=== PATIENT | female | born 1975 | race Caucasian/White ===

== ENCOUNTER 2020-05-25 09:55 | Outpatient (CLI) | payer BC, SELFPAY ==
[2020-05-25 10:26] LABS: Hematocrit 46.2 % (37.0-47.0); Hemoglobin 15.6 g/dL (12.0-15.0); Mean Corpuscular HGB Conc 33.8 g/dl (32-36); Mean Corpuscular Hemoglobin 31.5 pg (26-34); Mean Corpuscular Volume 93.3 fl (80-100); Platelet Count Result 189 k/mm3 (150-375); Red Blood Count 4.95 M/mm3 (4.2-5.4); White Blood Count 7.9 K/mm3 (4.5-10.0)
[2020-05-25 10:30] LABS: Potassium 4.2 mmol/L (3.4-5.0)
[2020-05-25 10:35] LABS: Anion Gap 4 mmol/L (8-16); Blood Urea Nitrogen 13 mg/dL (7-17); Calcium 8.8 mg/dL (8.4-10.2); Carbon Dioxide 29 mmol/L (22-30); Chloride 106 mmol/L (98-107); Cholesterol 210 mg/dL (0-200); Estimated Glomerular Filt Rate > 60; Glucose 95 mg/dL (65-105); HDL Direct 51 mg/dL; Sodium 139 mmol/L (137-145); Triglycerides 174 mg/dL (<150)
[2020-05-25 10:42] LABS: LDL Cholesterol Direct 107 mg/dL
[2020-05-25 11:00] LABS: Thyroid Stimulating Hormone 0.701 uIU/mL (0.465-4.680)
== END 2020-05-25 09:56 | disposition home or self-care (01) ==
LOC: ANHLAB 09:56
PROVIDERS: PCP Family Medicine; Visit Provider Nurse Practitioner Family
DX: Z13.1 Encounter for screening for diabetes mellitus (principal); Z68.30 Body mass index [BMI] 30.0-30.9, adult; Z13.220 Encounter for screening for lipoid disorders; Z13.29 Encounter for screening for other suspected endocrine disorder
CPT/HCPCS: 36415; 80048; 80061; 84443; 85027

== ENCOUNTER 2020-05-25 13:55 | Outpatient (CLI) | payer BC, SELFPAY ==
--- NOTE | ~2020-05-25 | MM_ITS ---
EXAMINATION: MM screening isiah BI w megan HISTORY: Screening mammogram TECHNIQUE: Craniocaudal and mediolateral oblique 3-D tomosynthesis images were obtained and synthetic 2-D images were generated. CAD analysis was submitted and interpreted. COMPARISON: No prior mammogram is available for comparison at this institution. BREAST PARENCHYMAL COMPOSITION: There are scattered areas of fibroglandular density. FINDINGS: There is no evidence of suspicious mass, calcification, or architectural distortion to sugg est malignancy in either breast. There has been no suspicious interval change. IMPRESSION: 1. No mammographic evidence of malignancy. 2. Recommend routine screening mammography in one year. BI-RADS Category 1: Negative Reviewed, dictated and finalized at location A. O VIDEO REPAIRER
== END 2020-05-25 13:56 | disposition home or self-care (01) ==
LOC: ANHIMG 13:57
PROVIDERS: PCP Family Medicine; Visit Provider Nurse Practitioner Family
DX: Z12.31 Encounter for screening mammogram for malignant neoplasm of breast (principal)
CPT/HCPCS: 77063; 77067

== ENCOUNTER 2020-11-21 12:32 | Emergency (ER) | payer BC, SELFPAY ==
--- NOTE | ~2020-11-21 | XR_ITS ---
EXAMINATION: XR chest 2V DATE: 11/21/2020 14:11 INDICATION: Smoker presenting with cough and chest tightness TECHNIQUE: PA and lateral views of the chest were obtained. COMPARISON: Chest radiograph dated 01/04/2010 FINDINGS: The lungs remain clear with no focal airspace opacities, pulmonary edema, pleural effusion or pneumot horax. The cardiomediastinal silhouette is normal. Mild thoracic spondylosis with chronic mild anteri or wedging of a midthoracic vertebral body. IMPRESSION: 1. No acute cardiopulmonary disease. Reviewed, dictated and finalized at location A.
[2020-11-21 13:20] VITALS: BP 101/66; PULSE 68; RESP 20; TEMP 36.8; O2SAT 97
[2020-11-21 13:21] VITALS: BP 101/66; PULSE 68; RESP 20; TEMP 36.8; O2SAT 97
--- NOTE | 2020-11-21 13:49 | ED.URI ---
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 She states that she has a sore throat and generally does not feel well; she is unvaccinated. Related Data Allergies Allergy/AdvReac Type Severity Reaction Status Date / Time orphenadrine Allergy Unknown itchy, and Verified 11/21/20 13:21 puffy face sumatriptan Allergy Unknown Unknown Verified 11/21/20 13:21 Review of Systems Review of Systems: CONSTITUTIONAL: Denies fever, chills, sweats. Not feeling well EYES: Denies visual changes, redness, discharge. ENT: Denies rhinorrhea, has congestion, has sore throat, otalgia. CARDIOVASCULAR: Denies chest pain, palpitations, edema. RESPIRATORY: Denies dyspnea, wheezing, mild cough GASTROINTESTINAL: Denies abdominal pain, nausea, vomiting, diarrhea. GENITOURINARY: Denies dysuria, hematuria, abnormal discharge SKIN: Denies rash or itching. NEUROLOGIC: Denies numbness, or focal weakness. PSYCHIATRIC: Denies anxiety or depression. [facility] Past Medical History Medical History (Updated 11/21/20 @ 14:36 by Yasmine Maher CNP) Anxiety Bipolar disorder, unspecified BMI 30.0-30.9,adult BMI 31.0-31.9,adult Chronic low back pain Surgical History Surgical History H/O: hysterectomy Family History Family History Grandparent Hypertension Sibling Cerebrovascular accident Father CHF (congestive heart failure) Diabetes mellitus Mother Kidney failure Hypoparathyroidism Sibling COVID-19 Social History Social History Smoking packs per day: 1 Smoking cigarettes per day: 20.0 Years smoked: 24 Smoking pack-years: 24.00 Smoking status: Current every day smoker Tobacco type: cigarettes Second hand tobacco smoke exposure: Yes Alcohol intake: current Substance use: current Substance use type: marijuana 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 There is no relevant family history pertinent to the presenting complaint. Exam Narrative: GENERAL: This is a well-nourished, well-developed patient, in mild distress. HEAD: normocephalic, atraumatic. EYES:. Sclera clear/white. Vision is grossly intact. EARS: External ears normal, auditory canals clear on the left, erythematous on right and without drainage, TMs normal without perforation. Hearing grossly intact. NOSE: External nose normal without nasal discharge, nares with redness, no rhinorrhea. THROAT: Mucous membranes moist, posterior pharynx erythema NECK: Neck supple, mild tender CARDIOVASCULAR: Regular rate and rhythm without murmurs, gallops, or rubs. RESPIRATORY: Coarse to auscultation. Breath sounds equal bilaterally. No wheezes, rales, or rhonchi. GASTROINTESTINAL: Abdomen soft, non-tender, SKIN: warm, intact with no suspicious lesions or rash, good texture and turgor. NEURO: awake, alert, and oriented to person, place and time. There were no obvious focal neurologic abnormalities. Steady gait EXTREMITIES: Normal range of motion. BACK: Nontender without d
[2020-11-21] MEDS: methylPREDNISolone SOD SUCC 125 MG VIAL 60 MG IM (14:47)
[2020-11-23 03:46] LABS: SARS-CoV-2 RNA PCR Negative
== END 2020-11-21 14:55 | disposition home or self-care (01) ==
PROVIDERS: Emergency Provider Nurse Practitioner; PCP Family Medicine
DX: J01.10 Acute frontal sinusitis, unspecified (principal); Z20.822 Contact with and (suspected) exposure to COVID-19; F17.210 Nicotine dependence, cigarettes, uncomplicated; F41.9 Anxiety disorder, unspecified
CPT/HCPCS: 71046; 87081; 87426; 87880; 99213; C9803; G0463; J2930; U0003; U0005

== ENCOUNTER 2021-06-16 10:30 | Emergency (ER) | payer BC, SELFPAY ==
[2021-06-16] VITALS (12 sets, daily range): BP systolic 111–136; BP diastolic 66–84; PULSE 59–82; RESP 8–20; TEMP 36.9; O2SAT 97–100
--- NOTE | ~2021-06-16 | US_ITS ---
EXAMINATION: US abdomen limited DATE: 06/16/2021 11:18 INDICATION: Right upper quadrant and epigastric abdominal pain. TECHNIQUE: Multiple grayscale and Doppler ultrasound images of the abdomen were obtained. COMPARISON: 07/13/2015 FINDINGS: The pancreatic head and body are normal in appearance. The pancreatic tail is not visualized. Liver has normal echogenicity and contour, with a smooth surface. No liver lesion identified. No intrahepat ic biliary duct dilation suspected. Portal venous flow was seen in the hepatopetal, normal direction and has normal Doppler waveform. Visualized proximal to mid inferior vena cava is normal. 1.5 cm post erior shadowing gallstone in the fundus of the normal appearing gallbladder. Sonographic Marroquin sign was reported as negative by the spring bender. Normal caliber common bile duct measuring 3 mm in diamet er. IMPRESSION: 1. Cholelithiasis without biliary ductal dilation or findings of acute cholecystitis. Reviewed, dictated and finalized at location A. IMPRESSION: 1. Cholelithiasis without biliary ductal dilation or findings of acute cholecys titis.
[2021-06-16 10:50] LABS: Basophils Percent Auto 0.5 % (0.2-1.2); Eosinophils Absolute Auto 0.1 K/mm3 (0-0.3); Eosinophils Percent Auto 0.6 % (0-4.4); Hematocrit 46.2 % (37.0-47.0); Hemoglobin 15.8 g/dL (12.0-15.0); Immature Granulocyte Absolute 0.06 K/mm3 (0.00-0.031); Immature Granulocyte Percent A 0.8 % (0-0.5); Lymphocytes Absolute Auto 1.73 K/mm3 (0.9-3.2); Lymphocytes Percent Auto 22.3 % (18.3-44.2); Mean Corpuscular HGB Conc 34.2 g/dl (32-36); Mean Corpuscular Volume 93.7 fl (80-100); Mean Platelet Volume 10.7 fl (7.4-10.4); Monocytes Absolute Auto 0.6 K/mm3 (0.1-0.6); Monocytes Percent Auto 7.5 % (2.6-8.5); Neutrophils Absolute Auto 5.3 K/mm3 (1.3-6.7); Neutrophils Percent Auto 68.3 % (45.5-73.1); Platelet Count Result 162 k/mm3 (150-375); Red Blood Count 4.93 M/mm3 (4.2-5.4); Red Cell Distribution Width 11.9 % (11.5-14.5); White Blood Count 7.8 K/mm3 (4.5-10.0)
[2021-06-16 10:51] LABS: Appearance Urine Clear (Clear); Bilirubin Urine Negative (Negative); Blood Urine Negative (Negative); Color Urine Yellow (Yellow); Glucose Urine UA Negative (Negative); Ketones Urine Negative (Negative); Leukocyte Esterase Ur Negative LEU/UL (Negative); Nitrate Urine Negative (Negative); Protein Urine Negative (Negative); Urobilinogen Urine 0.2 mg/dL (<2.0)
[2021-06-16 10:53] LABS: RBC Urine 0-2 /hpf (0-2); Squamous Epithelial Cell Urine Few /hpf (Few); WBC Urine 0-3 /hpf
--- NOTE | 2021-06-16 10:53 | ED.ABDPAIN ---
HPI - Abdominal Pain General Chief Complaint: Abdominal Pain Stated Complaint: Abdominal pain with n/v/d Time Seen by Provider: 06/16/21 10:35 History of Present Illness HPI narrative: Patient is a 45 year old female with a history of peptic ulcer disease, landis's esophagus, fibromyalgia who presents for evaluation of epigastric/RUQ pain x 1 week, worse over the past few days. Patient states the pain is cramping in nature, constant, but worse after meals. +nausea and one episode of vomiting non-bloody emesis today. She developed some mid-line back pain yesterday that has been constant since, with no provoking or alleviating factors. She reports she was constipated for 4 days, relieved by suppository two days ago, and is now having watery stools. Stools are non-bloody, but she reports one yellow/pale stool last week, none since. No fevers, chills, dysuria, hematuria. Has history of PUD for which she gets EGDs q 3 years. Her last EGD was in 2017 which had no acute changes. She avoids alcohol, spicy foods and NSAIDs. Her pain has been unrelieved by Bentyl, Dicyclomine, Zofran, OTC Pepcid, Tramadol. Related Data Home Medications Medication Instructions Recorded Confirmed melatonin 10 mg PO HS PRN 11/21/20 06/08/21 Allergies Allergy/AdvReac Type Severity Reaction Status Date / Time orphenadrine Allergy Unknown itchy, and Verified 06/16/21 10:39 puffy face sumatriptan Allergy Unknown Unknown Verified 06/16/21 10:39 Review of Systems Review of Systems: All systems reviewed & are unremarkable except as noted in HPI and below PMFSH Past Medical History Medical History Anxiety Bipolar disorder, unspecified BMI 30.0-30.9,adult BMI 31.0-31.9,adult BMI 32.0-32.9,adult BMI greater than 30 Chronic low back pain Surgical History Surgical History H/O: hysterectomy Family History Family History Grandparent Hypertension Sibling Cerebrovascular accident Father CHF (congestive heart failure) Diabetes mellitus Mother Kidney failure Hypoparathyroidism Sibling COVID-19 Social History Social History Smoking packs per day: 1 Smoking cigarettes per day: 20.0 Years smoked: 24 Smoking pack-years: 24.00 Tobacco type: cigarettes Second hand tobacco smoke exposure: Yes Alcohol intake: current Drinks per week: 2 Substance use: former Substance use type: marijuana Additional occupation/education comments: [employer] Gender identity (if verbalized by the patient): Female Sexual Orientation (if Verbalized by the Patient): Straight or Heterosexual Spiritual care concerns: No Agree to blood products: Yes Exam Const: General: no acute distress Orientation/consciousness: patient oriented x3 HENMT: Head: normal to inspection Mouth: Yes moist mucous membranes Throat: posterior oropharynx normal Resp: Effort & Inspection: normal respiratory effort Auscultation: clear to auscultation bilaterally, no rales, no rhonchi and no wheezes Cardio: Rate: regular rate Rhythm: regular rhythm Heart sounds: no murmurs GI: GI Palp: Yes Soft to palpation, Yes Tenderness to palpation present (GI) (epigastric region), No Guarding due to palpation present (GI) and No Rebound tenderness present Auscultation: normal bowel sounds : General: Yes no CVA tenderness Back/Spine/Pelvis: Back: no CVA tenderness Skin: General skin exam: normal color Rashes: no rashes Neuro: General: patient oriented x3 Speech: normal speech Extrem: General: normal to inspection and no edema Psych: Mental Status: mental status grossly normal Affect: normal affect Course Course Emergency Course: Spoke with PCP who agrees with surgical follow up as outpatient. Vital Sig
[2021-06-16 10:55] LABS: Add Urine Microscopic? YES
[2021-06-16 11:06] LABS: Alanine Aminotransferase 25 U/L (4-35); Albumin Level 4.5 g/dL (3.5-5.1); Alkaline Phosphatase 51 U/L (38-126); Anion Gap 6 mmol/L (8-16); Aspartate Amino Transferase 30 U/L (14-36); Bilirubin,Total 0.5 mg/dL (0.2-1.3); Blood Urea Nitrogen 12 mg/dL (7-17); Calcium 8.9 mg/dL (8.4-10.2); Carbon Dioxide 24 mmol/L (22-30); Chloride 106 mmol/L (98-107); Estimated CRCL calculation 100 ml/min; Estimated Glomerular Filt Rate > 60; Glucose 108 mg/dL (65-110); Lipase 83 U/L (23-300); Potassium 3.9 mmol/L (3.4-5.0); Sodium 136 mmol/L (137-145)
[2021-06-16] MEDS: SODIUM CHLORIDE 0.9% IV 1,000 ML 999 ML IV CONT (11:14)
[2021-06-16] MEDS: FAMOTIDINE 20 MG/2 ML VIAL IV PUSH (11:15)
[2021-06-16] MEDS: METOCLOPRAMIDE HCL INJ 10 MG/2 ML VIAL IV PUSH (11:15)
[2021-06-16] MEDS: diphenhydrAMINE HCl INJ 50 MG/ML VIAL 25 MG IV PUSH (11:15)
--- NOTE | 2021-06-29 10:28 | PC.NURSE ---
LATE ENTRY This note is being entered to document information to the patient's record. The following information was omitted on [06/16/21], by [Joe Drake RN]. NS stop time 1213
--- NOTE | 2021-07-01 07:45 | PC.NURSE ---
LATE ENTRY This note is being entered to document information to the patient's record. The following information was omitted on [hillary agarwal], by [06/16/21]. NS start 1215 end 1300
== END 2021-06-16 12:56 | disposition home or self-care (01) ==
LOC: ANHED 10:56
PROVIDERS: Physician Assistant; Emergency Provider Emergency Medicine; PCP Family Medicine
DX: K80.20 Calculus of gallbladder without cholecystitis without obstruction (principal); K22.70 Barrett's esophagus without dysplasia; M79.7 Fibromyalgia; Z87.11 Personal history of peptic ulcer disease; F17.210 Nicotine dependence, cigarettes, uncomplicated
CPT/HCPCS: 36415; 76705; 80053; 81001; 81025; 83690; 85025; 96361; 96374; 96375; 99284; J1200; J2765; J7030

== ENCOUNTER 2021-06-22 10:06 | Emergency (ER) | payer BC, SELFPAY ==
--- NOTE | ~2021-06-22 | US_ITS ---
EXAMINATION: US abdomen limited EXAM DATE: 06/22/2021 13:23 INDICATION: RUQ abd pain TECHNIQUE: Multiple grayscale and Doppler images of the abdomen right upper quadrant were obtained (b y a technologist who performed the scan) and subsequently reviewed. Comparison is made to prior exami nation from 06/16/2021. FINDINGS: The pancreatic head and body are normal in appearance. The pancreatic tail is not visualized. The l iver has normal echogenicity and contour. There are no focal liver lesions identified. There is no evidence of intrahepatic biliary duct dilation. Portal venous flow was seen in the hepatopedal, nor mal direction and has normal Doppler waveform. No right-sided hydronephrosis. Common bile duct measures 4 mm, which is normal. The gallbladder wall is normal in thickness, with ex pected amount of distention. No sonographic evidence of pericholecystic fluid. There is a 2 cm gall stone. Technologist performing exam reports patient did not demonstrate sonographic Marroquin's sign. Please note that this sign is less reliable in patients who have received pain medication. IMPRESSION: 1. Cholelithiasis. Reviewed, dictated and finalized at location A. IMPRESSION: 1. Cholelithiasis.
[2021-06-22 10:11] VITALS: BP 98/67; PULSE 78; RESP 18; TEMP 36.5; O2SAT 99
[2021-06-22 10:56] LABS: Basophils Percent Auto 0.4 % (0.2-1.2); Eosinophils Absolute Auto 0.1 K/mm3 (0-0.3); Eosinophils Percent Auto 0.7 % (0-4.4); Hematocrit 44.1 % (37.0-47.0); Hemoglobin 15.1 g/dL (12.0-15.0); Immature Granulocyte Absolute 0.03 K/mm3 (0.00-0.031); Immature Granulocyte Percent A 0.4 % (0-0.5); Lymphocytes Absolute Auto 1.67 K/mm3 (0.9-3.2); Mean Corpuscular HGB Conc 34.2 g/dl (32-36); Mean Corpuscular Hemoglobin 31.9 pg (26-34); Mean Corpuscular Volume 93.2 fl (80-100); Mean Platelet Volume 10.4 fl (7.4-10.4); Monocytes Absolute Auto 0.6 K/mm3 (0.1-0.6); Monocytes Percent Auto 7.4 % (2.6-8.5); Neutrophils Absolute Auto 5.3 K/mm3 (1.3-6.7); Neutrophils Percent Auto 69.1 % (45.5-73.1); Platelet Count Result 158 k/mm3 (150-375); Red Blood Count 4.73 M/mm3 (4.2-5.4); Red Cell Distribution Width 11.9 % (11.5-14.5); White Blood Count 7.6 K/mm3 (4.5-10.0)
[2021-06-22 11:03] LABS: Add Urine Microscopic? YES; Appearance Urine Clear (Clear); Bilirubin Urine Negative (Negative); Blood Urine 1+ (Negative); Color Urine Yellow (Yellow); Glucose Urine UA Negative (Negative); Ketones Urine Negative (Negative); Leukocyte Esterase Ur Negative LEU/UL (Negative); Mucus Urine Rare /lpf; Nitrate Urine Negative (Negative); Protein Urine Negative (Negative); Squamous Epithelial Cell Urine Few /hpf (Few); Urobilinogen Urine Negative mg/dL (<2.0); WBC Urine 0-3 /hpf
[2021-06-22 11:06] LABS: Alanine Aminotransferase 14 U/L (4-35); Albumin Level 4.3 g/dL (3.5-5.1); Alkaline Phosphatase 50 U/L (38-126); Anion Gap 5 mmol/L (8-16); Aspartate Amino Transferase 21 U/L (14-36); Bilirubin,Total 0.7 mg/dL (0.2-1.3); Blood Urea Nitrogen 14 mg/dL (7-17); Calcium 8.6 mg/dL (8.4-10.2); Carbon Dioxide 24 mmol/L (22-30); Chloride 108 mmol/L (98-107); Estimated CRCL calculation 99 ml/min; Estimated Glomerular Filt Rate > 60; Glucose 94 mg/dL (65-110); Lipase 104 U/L (23-300); Sodium 137 mmol/L (137-145)
--- NOTE | 2021-06-22 12:02 | ED.ABDPAIN ---
HPI - Abdominal Pain General Chief Complaint: Abdominal Pain Stated Complaint: fever. gallstones Time Seen by Provider: 06/22/21 12:01 Source: patient Mode of arrival: ambulatory Limitations: no limitations History of Present Illness HPI narrative: The patient is a 45-year-old female with a history of peptic ulcer disease, symptomatic cholelithiasis/cholecystitis, recently visited this emergency department on June 16 where her diagnosis of cholecystitis was given, patient returns to the ER with subjective fevers up to 99 Fahrenheit, continued malaise, right upper quadrant pain. Patient reports chronic right upper quadrant pain with radiation to the right back. Denies any upper chest pain, shortness of breath. Denies cough. Patient states she has been unable to tolerate the pain, and she was scheduled for follow-up with Dr. Taylor on of this week, but called the office today and was encouraged to come in for reevaluation. Patient reports last oral intake was a cup of coffee this morning around 9 in the morning. She denies any significant constipation or diarrhea. Denies dysuria or hematuria. The ultrasound from June 16 I reviewed, there is evidence of cholelithiasis, no evidence of acute cholecystitis. Related Data Home Medications Medication Instructions Recorded Confirmed melatonin 10 mg PO HS PRN 11/21/20 06/08/21 Allergies Allergy/AdvReac Type Severity Reaction Status Date / Time orphenadrine Allergy Unknown itchy, and Verified 06/18/21 14:32 puffy face sumatriptan Allergy Unknown Unknown Verified 06/18/21 14:32 Review of Systems Review of Systems: CONSTITUTIONAL: Reports subjective fever and chills EYES: Denies visual changes, redness, or discharge. ENT: Denies rhinorrhea, congestion, sore throat, or otalgia. CARDIOVASCULAR: Denies chest pain, palpitations, or edema. RESPIRATORY: Denies cough or dyspnea. GASTROINTESTINAL: Reports right upper quadrant abdominal pain, nausea without vomiting, denies diarrhea or constipation GENITOURINARY: Denies dysuria or hematuria. SKIN: Denies rash or itching. MUSCULOSKELETAL: Denies back pain, joint pain, or myalgia. NEUROLOGIC: Denies headache, numbness, or weakness. [facility] Past Medical History Medical History Anxiety French esophagus Bipolar disorder, unspecified BMI 30.0-30.9,adult BMI 31.0-31.9,adult BMI 32.0-32.9,adult BMI greater than 30 Chronic low back pain Peptic ulcer disease Surgical History Surgical History H/O: hysterectomy Family History Family History Grandparent Pancreatic cancer Sibling Cerebrovascular accident Father CHF (congestive heart failure) Diabetes mellitus Hypertension Mother Kidney failure Hypoparathyroidism Hypertension Sibling COVID-19 Social History Social History Smoking packs per day: 1 Smoking cigarettes per day: 20.0 Years smoked: 26 Smoking pack-years: 26.00 Smoking status: Current every day smoker Tobacco type: cigarettes Second hand tobacco smoke exposure: Yes Alcohol intake: current Drinks per week: 2 Substance use: former Substance use type: marijuana Additional occupation/education comments: [employer] Gender identity (if verbalized by the patient): Female Sexual Orientation (if Verbalized by the Patient): Straight or Heterosexual Spiritual care concerns: No Agree to blood products: Yes Exam Narrative: GENERAL: Awake, alert, conversant HEAD: Normocephalic, atraumatic. EYES: PERRLA and EOMI. ENT: Nares clear, no rhinorrhea or epistaxis. Mucous membranes moist. NECK: Supple. CHEST: No respiratory distress, breathing even and non labored HEART: Regular rate, sinus rhythm ABDOMEN:Non distended, reports right upp
--- NOTE | 2021-06-22 12:37 | ECG_ITS ---
Measurements Intervals [place] Rate: 47 P: 65 KS: 132 QRS: 60 QRSD: 84 T: 33 QT: 435 QTc: 388 Interpretive Statements SINUS BRADYCARDIA SHORT [place] INTERVAL NO PREVIOUS ECG AVAILABLE FOR COMPARISON Electronically Signed On 06-22-2021 16:49:27 CDT by Aretha Padilla M.D.
[2021-06-22] MEDS: SODIUM CHLORIDE 0.9% IV 1,000 ML 999 ML IV CONT (12:52)
[2021-06-22] MEDS: ONDANSETRON INJ 4 MG/2 ML VIAL IV PUSH (12:52)
[2021-06-22] MEDS: MORPHINE SULFATE (*CRX) 4 MG/ML INJ IV PUSH (12:52)
--- NOTE | 2021-06-22 12:55 | PC.NURSE ---
pt to US via stretcher.
[2021-06-22 14:48] VITALS: BP 103/69; PULSE 54; RESP 18; O2SAT 99
== END 2021-06-22 15:13 | disposition home or self-care (01) ==
PROVIDERS: Emergency Medicine; Emergency Provider Emergency Medicine; PCP Family Medicine
DX: K80.20 Calculus of gallbladder without cholecystitis without obstruction (principal); K27.9 Peptic ulcer, site unspecified, unspecified as acute or chronic, without hemorrhage or perforation; G89.29 Other chronic pain; F17.210 Nicotine dependence, cigarettes, uncomplicated; Z90.710 Acquired absence of both cervix and uterus
CPT/HCPCS: 36415; 76705; 80053; 81001; 83690; 85025; 93005; 96361; 96374; 96375; 99284; J2270; J2405; J7030

== ENCOUNTER 2021-06-30 08:00 | Outpatient (CLI) | payer BC, SELFPAY ==
--- NOTE | ~2021-06-30 | XR_ITS ---
EXAMINATION: XR UGI w barium swallow DATE: 06/30/2021 08:50 INDICATION: Right upper quadrant pain and bloating TECHNIQUE: The patient drank thick barium, gas-producing crystals, and thin barium. Fluoroscopy of th e esophagus, stomach, and proximal small bowel were performed. Fluoroscopy exposure time was 2.7 martin dustin. The DAP for this procedure was 18.993 Gycm2. COMPARISON: None. FINDINGS: There is no mass or stricture of the esophagus. Esophageal motility is normal. There is no hiatal hernia. There was no gastroesophageal reflux with provocative maneuvers. The stomach and proxi mal small bowel show normal folding patterns. IMPRESSION: 1. Unremarkable upper GI. Reviewed, dictated and finalized at location A. IMPRESSION: 1. Unremarkable upper GI.
== END 2021-06-30 08:01 | disposition home or self-care (01) ==
LOC: ANHIMG 08:03
PROVIDERS: PCP Family Medicine; Visit Provider Surgery
DX: R10.11 Right upper quadrant pain (principal)
CPT/HCPCS: 74240

== ENCOUNTER 2021-07-05 07:41 | Outpatient (CLI) | payer BC, SELFPAY ==
--- NOTE | ~2021-07-05 | NM_ITS ---
EXAMINATION: NM hepatobiliary wo pharm DATE: 07/05/2021 10:14 INDICATION: Right upper quadrant abdominal pain. COMPARISON: None. TECHNIQUE: 5 mCi Tc-99m mebrofenin (Choletec) was administered intravenously. Scintigraphic images o f the abdomen were obtained for one hour. At the 1 hour time point, the patient drank 8 oz Ensure, an d imaging was continued for 60 minutes. Gallbladder ejection fraction was calculated by the technolog ist. FINDINGS: There is normal clearance of radiotracer from the blood pool. There is homogeneous tracer u ptake by the liver. Activity progresses to the bowel and gallbladder. The gallbladder ejection fract ion (GBEF) is 78%. Note that with this technique, normal GBEF >= 33%. IMPRESSION: 1. Normal hepatobiliary scan. Reviewed, dictated and finalized at location A.
== END 2021-07-05 07:42 | disposition home or self-care (01) ==
LOC: ANHIMG 07:45
PROVIDERS: PCP Family Medicine; Visit Provider Surgery
DX: R10.11 Right upper quadrant pain (principal)
CPT/HCPCS: 78226; A9537

== ENCOUNTER 2021-08-13 07:52 | Outpatient (CLI) | payer BC, SELFPAY ==
[2021-08-13 08:38] LABS: Alanine Aminotransferase 36 U/L (6-35); Albumin Level 4.2 g/dL (3.5-5.1); Alkaline Phosphatase 49 U/L (38-126); Amylase 63 U/L (30-110); Aspartate Amino Transferase 31 U/L (14-36); Bilirubin,Total 0.4 mg/dL (0.2-1.3); Lipase 85 U/L (23-300)
== END 2021-08-13 07:53 | disposition home or self-care (01) ==
PROVIDERS: PCP Family Medicine; Visit Provider Surgery
DX: Z01.812 Encounter for preprocedural laboratory examination (principal); K80.20 Calculus of gallbladder without cholecystitis without obstruction
CPT/HCPCS: 36415; 80076; 82150; 83690; 86850; 86900; 86901

== ENCOUNTER 2021-08-18 00:52 | Day surgery (SDC) | payer BC, SELFPAY ==
[2021-08-10 13:35] VITALS: BMI 31.9
--- NOTE | 2021-08-10 13:40 | SUR.PREOP ---
Report to the Outpatient Waiting Room, entrance under the green pavilion located off [facility], at time 0830_ on date _08/18/21 . OR Time: __1030 . - You and your visitor will be asked a series of questions to screen for COVID 19 for your protection. - Only one visitor is allowed at this time. - The patient visitor is requested to leave or wait in car when not with patient. - A mask is required within the hospital. Patients may have clear liquids (water, carbonated beverages, clear teas, apple juice) until 3 hours prior to surgery with a maximum of 20 ounces. - No food from midnight until time of surgery - Infants may have breast milk until 4 hours before surgery, infant formula 6 hours prior to surgery. - Children will be allowed to drink immediately following surgery. If applicable, please bring a bottle or sippy cup to assist with drinking. Juice, water, soda, and popsicles are readily available. For infants on formula, please bring formula the day of surgery. Pacifiers are allowed. Take the following medications with a SIP of water the morning of surgery: ___alprazalam Medications to discontinue per physician __vitamins supplements Date to take last dose___08/14/21 Please no make-up, nail vietnamese, hairspray, perfume, deodorant, or body powder the day of surgery. No jewelry (including any body piercings) or valuables the day of surgery, leave them at home. Please take a shower or bath the night before, or the morning of, surgery with an antibacterial soap. Wear comfortable, loose fitting clothing. Children are encouraged to wear pajamas. HIBICLENS SHOWER AM OF SURGERY - Jewelry must be removed prior to entering the operating room. Rings and piercings that are not removed may be cut off. - The hospital will not accept responsibility for valuables. - Please leave all valuables, including medications, at home the day of surgery. If you are going home after surgery, a licensed route cdl driver must drive you home. - NO public transportation without another adult. - We recommend that an adult stay with you for 24 hours following discharge. - We also recommend that you do not drive, make important decision, drink alcoholic beverages, or take any drugs that were not prescribed by your health care provider for at least 24 hours after your discharge time. For Pediatric surgeries, we recommend two adults accompany the child home (only one inside the building at this time). Follow any additional instructions given to you from your surgeon. If you or anyone in your household have experienced Covid symptoms in the past week, please notify your surgeon or the nurse liaison at the phone number below for possible testing. Telephone instructions given to _LINDA THIBODEAUX and asked if any additional questions and then verbalized understanding. Patient advised to call surgeon office or pre surgery nurse liaison [phone] if any additional questions.
--- NOTE | 2021-08-16 13:22 | PM.SD2 ---
Same Day Admit/Disch: HPI History of Present Illness Chief complaint: rt upper quad abdominal pain, cholelithiasis Narrative: Eda Akers is a 45 year old female Who started having postprandial right upper quadrant abdominal pain back in early May. She went to the emergency room a couple of times within a week in early June. She had an ultrasound which showed gallstones. Upper GI was negative. Hepatobiliary scan was normal. She also has a history of recalcitrant heartburn and regurgitation although she does take Prilosec and Pepcid Plans are for her to eventually have an EGD by Dr. Beauchamp. She has also felt to have chronic cholecystitis, cholelithiasis. She is taken to surgery now for laparoscopic cholecystectomy. [facility] Past Medical History Medical History (Updated 08/18/21 @ 12:17 by Hector Taylor MD) Anxiety French esophagus Bipolar disorder, unspecified BMI greater than 30 Chronic low back pain Peptic ulcer disease Surgical History Surgical History H/O: hysterectomy Family History Family History Grandparent Pancreatic cancer Sibling Cerebrovascular accident Father CHF (congestive heart failure) Diabetes mellitus Hypertension Mother Kidney failure Hypoparathyroidism Hypertension Sibling COVID-19 Social History Social History Smoking packs per day: 1 Smoking cigarettes per day: 20.0 Years smoked: 26 Smoking pack-years: 26.00 Smoking status: Current every day smoker Tobacco type: cigarettes Second hand tobacco smoke exposure: Yes Additional smoking assessment comments: 1 ppd x 26 years Alcohol intake: current Drinks per week: 2 Substance use: former Substance use type: marijuana Other substance usage details: eatable rarely Living arrangements: with family Additional occupation/education comments: [employer] Gender identity (if verbalized by the patient): Female Sexual Orientation (if Verbalized by the Patient): Straight or Heterosexual Spiritual care concerns: No Agree to blood products: Yes Same Day Admit/Disch: Med Pre-admit Medications Home Medications Medication Instructions Recorded Confirmed Type duloxetine 60 mg capsule,delayed 60 mg PO DAILY #90 caps 11/11/20 08/18/21 Rx release (Cymbalta) melatonin 10 mg tablet 10 mg PO HS PRN Insomnia 11/21/20 08/18/21 History ondansetron HCl 4 mg tablet 4 mg PO Q6H PRN nausea and 06/14/21 08/18/21 Rx vomiting #30 tabs famotidine 20 mg tablet (Pepcid) 20 mg PO BID 07/12/21 08/18/21 History omeprazole 40 mg capsule,delayed 40 mg PO DAILY #30 caps 07/12/21 08/18/21 Rx release Lactobacillus acidophilus 10 10,000 mmu cells PO DAILY 08/10/21 08/18/21 History billion cell capsule (Probiotic) cholecalciferol (vitamin D3) 25 25 mcg PO DAILY 08/10/21 08/18/21 History mcg (1,000 unit) capsule (Vitamin D3) magnesium 250 mg tablet 250 mg PO DAILY 08/10/21 08/18/21 History tizanidine 2 mg tablet 2 mg PO DAILY PRN muscle spasticity 08/10/21 08/18/21 History zinc 10 mg tablet 10 mg PO DAILY 08/10/21 08/18/21 History alprazolam 0.5 mg tablet 0.5 mg PO BID PRN panic attack(s) 08/13/21 Rx #20 tabs hydrocodone 5 mg-acetaminophen 325 1 - 2 tablet PO Q6H PRN pain #10 08/18/21 Rx mg tablet tabs ketorolac 10 mg tablet 10 mg PO Q6H 4 days #16 tabs 08/18/21 Rx Exam Const: General: comfortable, no acute distress, alert and awake HENMT: Head: normocephalic and atraumatic Mouth: Yes Normal oral and palatal mucosa present Eyes: Conjunctivae: conjunctivae normal Pupils: Equal, round and reactive pupils present EOM: EOMs intact bilaterally Neck: Neck: normal visual inspection, no lymphadenopathy and nontender Resp: Effort & Inspection: normal respiratory effort Auscultation: clear to a
[2021-08-18] VITALS (10 sets, daily range): BP systolic 92–133; BP diastolic 55–95; PULSE 49–93; RESP 12–20; TEMP 36.4–36.8; O2SAT 98–100; BMI 32.5
[2021-08-18] MEDS: ACETAMINOPHEN 500 MG TABLET 1000 MG PO (09:43)
[2021-08-18] MEDS: LACTATED RINGERS 1,000 ML 30 ML IV CONT ×2 (09:43→12:12)
[2021-08-18] MEDS: KETOROLAC 15 MG/ML VIAL (*BKC) IV PUSH (09:44)
--- NOTE | 2021-08-18 10:35 | WPDANESEPPF ---
Anes - Initial Pre Proc Eval Procedure: Operation Date: 08/18/21 10:30 Proposed Procedures p Laparoscopic Cholecystectomy - Hector Taylor MD Date/Time: 08/18/21 10:35 Surgeon: Hector Taylor MD Pre Op Diagnosis: rt upper quad abdominal pain, cholelithiasis Patient Data Age: 45 Gender: F Height: 1.6 m Weight: 83.3 kg Last Vital Signs Temp 98.2 F 08/18/21 09:39 Pulse 69 08/18/21 09:39 Resp 20 08/18/21 09:39 BP 92/63 L 08/18/21 09:39 Pulse Ox 100 08/18/21 09:39 O2 Del Method Room Air 08/18/21 09:39 Allergies Allergy/AdvReac Type Severity Reaction Status Date / Time sumatriptan Allergy Severe Anaphylactic Verified 08/18/21 09:13 Shock Home Medications Medication Instructions Recorded Confirmed Type duloxetine 60 mg capsule,delayed 60 mg PO DAILY #90 caps 11/11/20 08/18/21 Rx release (Cymbalta) melatonin 10 mg tablet 10 mg PO HS PRN Insomnia 11/21/20 08/18/21 History ondansetron HCl 4 mg tablet 4 mg PO Q6H PRN nausea and 06/14/21 08/18/21 Rx vomiting #30 tabs famotidine 20 mg tablet (Pepcid) 20 mg PO BID 07/12/21 08/18/21 History omeprazole 40 mg capsule,delayed 40 mg PO DAILY #30 caps 07/12/21 08/18/21 Rx release Lactobacillus acidophilus 10 10,000 mmu cells PO DAILY 08/10/21 08/18/21 History billion cell capsule (Probiotic) cholecalciferol (vitamin D3) 25 25 mcg PO DAILY 08/10/21 08/18/21 History mcg (1,000 unit) capsule (Vitamin D3) magnesium 250 mg tablet 250 mg PO DAILY 08/10/21 08/18/21 History tizanidine 2 mg tablet 2 mg PO DAILY PRN muscle spasticity 08/10/21 08/18/21 History zinc 10 mg tablet 10 mg PO DAILY 08/10/21 08/18/21 History alprazolam 0.5 mg tablet 0.5 mg PO BID PRN panic attack(s) 08/13/21 Rx #20 tabs Patient hx anesthesia problems: none Family hx anesthesia problems: none Results Review: All pre-operative results and documents have been reviewed as part of the pre-operative evaluation. [facility] Past Medical History Medical History Anxiety French esophagus Bipolar disorder, unspecified BMI 30.0-30.9,adult BMI 31.0-31.9,adult BMI 32.0-32.9,adult BMI greater than 30 Chronic low back pain Peptic ulcer disease Surgical History Surgical History H/O: hysterectomy Family History Family History Grandparent Pancreatic cancer Sibling Cerebrovascular accident Father CHF (congestive heart failure) Diabetes mellitus Hypertension Mother Kidney failure Hypoparathyroidism Hypertension Sibling COVID-19 Social History Social History Smoking packs per day: 1 Smoking cigarettes per day: 20.0 Years smoked: 26 Smoking pack-years: 26.00 Smoking status: Current every day smoker Tobacco type: cigarettes Second hand tobacco smoke exposure: Yes Additional smoking assessment comments: 1 ppd x 26 years Alcohol intake: current Drinks per week: 2 Substance use: former Substance use type: marijuana Other substance usage details: eatable rarely Living arrangements: with family Additional occupation/education comments: [employer] Gender identity (if verbalized by the patient): Female Sexual Orientation (if Verbalized by the Patient): Straight or Heterosexual Spiritual care concerns: No Agree to blood products: Yes Anes - Eval Final PreProcedure Day of Procedure 08/18/21 10:35 Patient weight: obese Heart: regular rate and rhythm Lungs: clear to auscultation Airway: Mallampati scale class III Neurological: alert and oriented Last oral intake: >/= 8 hours ASA classification: III Emergent: no Anesthetic plan: proceed Anesthesia type and monitoring: general ETT and standard monitoring Results Review: All pre-operative results and
--- NOTE | 2021-08-18 10:46 | WPDHPUPDATE1 ---
History and Physical Update Update Date/Time: 08/18/21 10:46 History and Physical has been reviewed, including an updated exam of the patient. There are NO changes in the patient's condition. Risks, benefits, and alternatives have been discussed and questions answered. Patient agrees to proceed with procedure.
[2021-08-18] MEDS: ceFAZolin 2 GM/D5W 50 ML 2 GM/50 ML BAG IVPB (11:08)
[2021-08-18] MEDS: LIDO 1%/EPINEPHRINE/PF 1:200,000 30 ML VIAL XX (11:53)
--- NOTE | 2021-08-18 11:59 | W.PM.PROC2 ---
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 She has numerous gallstones on ultrasound. She is taken to surgery now for laparoscopic cholecystectomy. Findings Chronic inflammation was noted. There were numerous stones in the gallbladder. No biliary ductal dilatation. No liver abnormalities. Description of Procedure The patient was taken to surgery and induced into general anesthesia. The abdomen is prepped and draped. Trocars were placed in the usual fashion using 1% lidocaine with epinephrine and applied Medical optical trocars. A 5 mm camera was used. The gallbladder was decompressed with a laparoscopic aspirator. After being decompressed, it was obvious there were numerous stones in the gallbladder. Cholecystotomy was closed with a Vicryl endoloop. The gallbladder was then freed from omental adhesions and retracted anterosuperiorly. Dissection was carried out in the cholecystohepatic triangle. The cystic duct and cystic artery were dissected out very clearly. The gallbladder was dissected off the liver over its lower half. Critical view was achieved. We then securely clipped and divided the cystic duct and cystic artery. The gallbladder was dissected free of its remaining attachments to the liver. The gallbladder was placed in an Endo-Catch bag when it was free. It was extricated through the 10 11 epigastric trocar site without difficulty. We replaced the 10 11 epigastric trocar and reviewed the right upper quadrant. All looked good with no evidence of bleeding or bile leakage. Some irrigation and suctioning were carried out to ensure all was satisfactory. We then evacuated CO2 and removed the trocar sleeves. Skin wounds were closed with subcuticular 4-0 Monocryl skin suture. The wounds were dressed with Exofin surgical adhesive. Patient was awakened and taken to recovery in good condition. Sponge needle counts were correct x2. Estimated Blood Loss -5 Drains No Packing No Pathology Yes (Gallbladder) Complications No immediate complications Condition Stable Disposition PACU [facility] Billing Surgery - Charge Forward: Surgery Billing (Laparoscopic cholecystectomy)
[2021-08-18] MEDS: ONDANSETRON INJ 4 MG/2 ML VIAL IV PUSH (12:23)
[2021-08-18] MEDS: diphenhydrAMINE HCl INJ 50 MG/ML VIAL 12.5 MG IV PUSH ×2 (12:51→13:03)
[2021-08-18] MEDS: oxyCODONE HCL (*CRX) 5 MG TAB IR PO (13:46)
--- NOTE | 2021-08-18 14:12 | SUR.PHASEII ---
1410 - ambulated to bathroom with assist. gait steady.
== END 2021-08-18 14:49 | disposition home or self-care (01) ==
PROVIDERS: PCP Family Medicine; Visit Provider Surgery
PROC: 0FT44ZZ Resection of Gallbladder, Percutaneous Endoscopic Approach (ICD-10-PCS; CPT 47562; principal; 2021-08-18 10:30)
DX: K80.10 Calculus of gallbladder with chronic cholecystitis without obstruction (principal); F41.9 Anxiety disorder, unspecified; F31.9 Bipolar disorder, unspecified; F17.210 Nicotine dependence, cigarettes, uncomplicated; E66.9 Obesity, unspecified; Z68.32 Body mass index [BMI] 32.0-32.9, adult
CPT/HCPCS: 47562; 88304; A9270; C1713; J0690; J1100; J1200; J1885; J2250; J2405; J2704; J3010; J7120

== ENCOUNTER → 2022-01-31 08:52 | Outpatient (CLI) | payer BC, SELFPAY ==
--- NOTE | ~2022-01-31 | XR_ITS ---
XR foot RT min 3V DATE: 01/31/2022 09:05 INDICATION: Arch and heel pain for 6 to 12 months TECHNIQUE: 4 views COMPARISON: None FINDINGS: There is mild posterior calcaneal enthesopathy. No fracture, dislocation, periosteal reaction or bone destruction. Joint spaces are preserved. No ero sive changes. IMPRESSION: Mild posterior calcaneal enthesopathy Reviewed, dictated and finalized at location A. SROOM TEACHER
--- NOTE | ~2022-01-31 | XR_ITS ---
XR ankle RT min 3V DATE: 01/31/2022 09:05 INDICATION: Ankle pain for 6 to 12 months TECHNIQUE: 4 views COMPARISON: None FINDINGS: Mild posterior calcaneal enthesopathy. No fracture or dislocation of the ankle or disruption of the ankle mortise. No periosteal reaction or bone destruction. IMPRESSION: Mild posterior calcaneal enthesopathy Reviewed, dictated and finalized at location A. R ANALYST
== END ==
PROVIDERS: PCP Family Medicine; Visit Provider Family Medicine
DX: M77.31 Calcaneal spur, right foot (principal)
CPT/HCPCS: 73610; 73630

== ENCOUNTER → 2022-06-16 16:51 | Outpatient (CLI) | payer BC, SELFPAY ==
--- NOTE | ~2022-06-16 | XR_ITS ---
EXAMINATION: XR lumbar spine 6V w bending DATE: 06/16/2022 17:21 INDICATION: Lumbar radiculopathy TECHNIQUE: Anteroposterior, lateral in neutral, flexion and extension, and bilateral oblique views of the lumbar spine, and cone-down lateral view of the lumbosacral junction were obtained. COMPARISON: None. FINDINGS: Bone alignment is normal. There is no hypermobility with flexion or extension. The vertebra l body heights are normal. There is mild loss of intervertebral disc space height at L5-S1. There is multilevel mild facet joint osteoarthritis. There is no fracture. Surgical clips in the right upper q uadrant are likely from prior cholecystectomy. IMPRESSION: 1. Mild lumbar spondylosis without acute findings. Reviewed, dictated and finalized at location F.
--- NOTE | ~2022-06-16 | XR_ITS ---
EXAMINATION: XR hip RT min 2V DATE: 06/16/2022 17:21 INDICATION: Right hip pain TECHNIQUE: Two views of right hip were obtained. COMPARISON: None. FINDINGS: Bone alignment is normal. There is no fracture. There is mild osteoarthritis of the hip. IMPRESSION: 1. No acute osseous abnormality. Reviewed, dictated and finalized at location F.
== END ==
PROVIDERS: PCP Family Medicine; Visit Provider Family Medicine
DX: M25.551 Pain in right hip (principal); M47.26 Other spondylosis with radiculopathy, lumbar region
CPT/HCPCS: 72114; 73502

== ENCOUNTER → 2022-09-30 14:52 | Outpatient (CLI) | payer BC, SELFPAY ==
--- NOTE | ~2022-09-30 | MR_ITS ---
EXAMINATION: MR brain/brain stem wo/w con DATE: 09/30/2022 15:35 INDICATION: Dizziness. TECHNIQUE: Magnetic resonance imaging (MRI) of the brain and brainstem was performed without and with 19 mL MultiHance intravenous contrast. COMPARISON: None. FINDINGS: There is no intracranial hemorrhage, acute infarction, or abnormal intracranial mass lesion . There are 2 foci of nonspecific increased T2-weighted signal intensity in the cerebral white matter , which is within normal limits for the patient's age. The ventricles are normal in size. The paranas al sinuses are clear. The orbits are normal. The mastoid air cells are normal. IMPRESSION: 1. Normal brain. Reviewed, dictated and finalized at location E. IMPRESSION: 1. Normal brain.
== END ==
PROVIDERS: PCP Family Medicine
DX: R42 Dizziness and giddiness (principal)
CPT/HCPCS: 70553; A9577

== ENCOUNTER 2022-11-04 10:02 | Outpatient (CLI) | payer BC, SELFPAY ==
--- NOTE | ~2022-11-04 | SLEEP.INT_ITS ---
Polysomnography Report Patient Name: LINDA AKERS Study Date: 11/04/2022 Referring Physician: Henrry Phillips MD Indications for Polysomnography The patient is a 47 year-old Female who is 5' 2 and weighs 215.0 lbs. Her BMI equals 39.6. The patie nt's neck circumference is 16 inches. The [place] Sleepiness Scale score was 17. A full night polysomnogram wa s performed to evaluate the patient for fatigue and excessive daytime sleepiness. Sleep History Linda Akers is a 47-year-old female who is always tired, does not feel refreshed on waking. There is a family history of sleep apnea, her mother has sleep apnea. The patient wakes up during the night and always has exc essive daytime sleepiness. She tried Ambien years ago without improvement. She rarely awakens from sleep feeling s hort of breath. She occasionally awakens at night with heartburn, belching or coughing. She frequently snores and fr equently has loud enough that others complain about it. She frequently has difficulty sleeping with a cold. She does not wake up gasping for breath at night. She rarely has breathing problems at night observed by others. She frequently sweats excessively at night. She does not notice her heart pounding or beating irregularly at night. She occasionally falls asleep during the day, occasionally falls asleep involuntarily; she rarely falls asleep while driving. She does not claros ve loss of muscle tone with strong emotion. She rarely has daytime difficulties due to excessive sleepiness. She rarely fe els paralyzed on waking or falling asleep. She rarely has vivid dreamlike scenes upon awakening or falling asleep. S he is not afraid to go to sleep. She rarely has nightmares. She occasionally remembers her dreams. She frequently has racing thoughts. She rarely feels sad or depressed. She occasionally has anxiety. She always has muscular tension. She frequently notices parts of her body jerking. She occasionally kicks at night. She occasionally has crawling a nd aching feelings in her legs. She frequently has leg pain at night. She never has morning jaw pain. She occasionally g rinds her teeth during sleep. She constantly is bothered by pain during the day and is always awakened by pain at ni ght. She constantly wakes up feeling stiff in the morning with sore achy muscles and pain in the neck and spine. She has headaches, fatigue, sexual problems, memory problems and she takes antacids regularly. Normal bedtime is 8:00 p.m. usually falling asleep within 20 minutes, typically waking 4-5 times duri ng the night for unclear reasons. She tries to return to sleep but sometimes this can take a while. Her normal wake up time is 5:00 a.m.. On weekends, bedtime is between 8:00 p.m. and 9:00 p.m. She wakes at 7:00 a.m.. She estimates getti ng between 6 and 9 hours of sleep at night. She takes naps in the afternoon on weekends. A short nap is not refr eshing. She is usually drowsy for 3 hours after waking. Habits: She is a former tobacco smoker. Caffeine 1 cup of coffee per day. No alcohol or recreation al substances. Medical History Depression, fibromyalgia, chronic pain Medications Cymbalta 60 mg HS Tizanidine 4 mg HS Meloxicam 7.5 mg at night Vitamin D3 2000 units daily Magnesium 400 mg daily Melatonin 10 mg HS Gabapentin 200 mg HS Polysomnogram Data A full night polysomnogram using the [employer] multi-channel system recorded the standard phys iologic parameters including EEG, EOG, submentalis EMG, anterior tibialis EMG, EKG, body position, nasal and oral airflow using nasal pressure sensor and thermistor. Respiratory parameters of chest and abdominal movements were recorded with Respiratory Inductance Plethysmography belts. Oxygen saturation was recorded by pulse oximetry. Video monitoring was also performed. Sleep stages, periodic limb movements,
== END 2022-11-05 08:11 | disposition home or self-care (01) ==
LOC: ANHCSM 10:03
PROVIDERS: PCP Family Medicine
DX: G47.33 Obstructive sleep apnea (adult) (pediatric) (principal); G47.30 Sleep apnea, unspecified
CPT/HCPCS: 95810

== ENCOUNTER → 2022-11-05 07:23 | Outpatient (CLI) | payer BC, SELFPAY ==
--- NOTE | ~2022-11-05 | US_ITS ---
EXAMINATION: US soft tissue abdomen INDICATION: Palpable masses of the right flank TECHNIQUE: Limited ultrasound is performed in the area of clinical concern. COMPARISON: None available FINDINGS: There are two circumscribed isoechoic masses of the right flank in the area of clinical con cern. One measures 2.9 x 1.4 x 2.9 cm and the other 1.0 x 0.8 x 1.0 cm. No suspicious cystic or solid mass is identified. IMPRESSION: 1. Right flank masses with sonographic appearance consistent with lipomas. Reviewed, dictated and finalized at location F.
== END ==
PROVIDERS: PCP Family Medicine; Visit Provider Nurse Practitioner Family
DX: R22.2 Localized swelling, mass and lump, trunk (principal)
CPT/HCPCS: 76705

== ENCOUNTER 2023-05-19 08:43 | Emergency (ER) | payer BC, SELFPAY ==
--- NOTE | ~2023-05-19 | CT_ITS ---
EXAMINATION: CT abdomen pelvis w con DATE: 05/19/2023 09:38 INDICATION: Right-sided abdominal pain TECHNIQUE: Computed tomography (CT) of the abdomen and pelvis was performed with 100 mL Omnipaque-350 intravenous contrast. Automated exposure control and iterative reconstruction technique were employe d. The dose-length product was 1266.37 mGy-cm. COMPARISON: 04/19/2012 FINDINGS: Lung bases are clear. Heart size is normal. No pericardial or pleural effusion. Diffuse hepatic steat osis. Mild dilation of the common bile duct to 9 mm which is within normal limits post cholecystectom y with surgical clips the gallbladder fossa. No evident obstructing stones or masses or intrahepatic biliary ductal dilation. Spleen, pancreas, bilateral adrenal glands and kidneys are normal. There are few scattered colonic diverticula without adjacent inflammatory stranding to suggest diverticulitis. Small bowel and appendix are normal. The uterus is not identified and has likely been surgically res ected. 4.2 cm right adnexal cyst, increased in size from 2.9 cm at the time of the prior study. Bladd er is normal. No free intraperitoneal gas or fluid. No pathologically enlarged abdominal or pelvic ly mphadenopathy. Mild lumbar and mild to moderate thoracic spondylosis with chronic mild anterior wedgi ng at T9. IMPRESSION: 1. Mild dilation of the common bile duct to 9 mm which is within normal limits post cholecystectomy w ith no intrahepatic biliary ductal dilation. Could consider correlation with liver function tests. 2. Diffuse hepatic steatosis. 3. 4.2 cm simple appearing right adnexal cyst increased from 2.9 cm in 2012. Reviewed, dictated and finalized at location B. ER IMPRESSION: 1. Mild dilation of the common bile duct to 9 mm which is within normal limits post cholecystectomy with no intrahepatic biliary ductal dilation. Could consid er correlation with liver function tests. 2. Diffuse hepatic steatosis. 3. 4.2 cm simple appearing right adnexal cyst increased from 2.9 cm in 2012.
[2023-05-19 08:54] VITALS: BP 137/88; PULSE 69; RESP 16; TEMP 36.8; O2SAT 98
[2023-05-19 09:07] LABS: Basophils Absolute Auto 0.1 K/mm3 (0.0-0.1); Basophils Percent Auto 0.8 % (0.2-1.2); Eosinophils Absolute Auto 0.1 K/mm3 (0-0.3); Eosinophils Percent Auto 1.3 % (0-4.4); Hematocrit 43.6 % (37.0-47.0); Hemoglobin 14.5 g/dL (12.0-15.0); Immature Granulocyte Absolute 0.07 K/mm3 (0.00-0.031); Immature Granulocyte Percent A 1.1 % (0-0.5); Lymphocytes Absolute Auto 1.48 K/mm3 (0.9-3.2); Lymphocytes Percent Auto 23.5 % (18.3-44.2); Mean Corpuscular HGB Conc 33.3 g/dl (32-36); Mean Corpuscular Hemoglobin 31.9 pg (26-34); Mean Corpuscular Volume 95.8 fl (80-100); Mean Platelet Volume 10.2 fl (7.4-10.4); Monocytes Absolute Auto 0.6 K/mm3 (0.1-0.6); Neutrophils Percent Auto 63.3 % (45.5-73.1); Platelet Count Result 193 k/mm3 (150-375); Red Blood Count 4.55 M/mm3 (4.2-5.4); Red Cell Distribution Width 12.7 % (11.5-14.5); White Blood Count 6.3 K/mm3 (4.5-10.0)
[2023-05-19 09:17] LABS: Alanine Aminotransferase 86 U/L (6-35); Albumin Level 4.5 g/dL (3.5-5.1); Alkaline Phosphatase 64 U/L (38-126); Anion Gap 5 mmol/L (8-16); Aspartate Amino Transferase 49 U/L (14-36); Bilirubin,Total 0.5 mg/dL (0.2-1.3); Blood Urea Nitrogen 19 mg/dL (7-17); Calcium 9.5 mg/dL (8.4-10.2); Carbon Dioxide 26 mmol/L (22-30); Chloride 108 mmol/L (98-107); Estimated CRCL calculation 109 ml/min; Estimated Glomerular Filt Rate > 60; Glucose 99 mg/dL (65-110); Lipase 136 U/L (23-300); Potassium 4.3 mmol/L (3.4-5.0); Sodium 139 mmol/L (137-145)
--- NOTE | 2023-05-19 09:20 | ED.ABDPAIN ---
HPI - Abdominal Pain General Chief Complaint: Abdominal Pain Stated Complaint: abdomen pain Time Seen by Provider: 05/19/23 08:52 History of Present Illness HPI narrative: 47-year-old female presented to the emergency department for evaluation of right upper and right lower quadrant abdominal pain that started yesterday. Patient does report associated nausea vomiting and diarrhea. Patient states he does have a prior history of cholecystectomy and does have history of Typhlitis. Related Data Home Medications Medication Instructions Recorded Confirmed melatonin 10 mg tablet 10 mg PO HS PRN Insomnia 11/21/20 04/26/23 wwagklhmzi-ualldybkwjrmd-whjabski 1 cap PO Q6H PRN 12/15/21 04/26/23 50 mg-300 mg-40 mg capsule (Fioricet) meloxicam 7.5 mg tablet 7.5 mg PO DAILY 10/04/22 04/26/23 folic acid 1 mg tablet 1 mg PO DAILY 03/03/23 04/26/23 gabapentin 600 mg tablet 600 mg PO DAILY 03/03/23 04/26/23 methotrexate sodium 5 mg tablet 25 mg PO WEEKLY 03/03/23 04/26/23 Allergies Allergy/AdvReac Type Severity Reaction Status Date / Time sumatriptan Allergy Severe Anaphylactic Verified 04/26/23 12:28 Shock Review of Systems Review of Systems: All systems reviewed & are unremarkable except as noted in HPI and below PMFSH Past Medical History Medical History Achilles tendon pain Anxiety French esophagus Bipolar disorder, unspecified BMI greater than 30 Body mass index (BMI) of 40.1 to 44.9 in adult Chronic low back pain Lumbar radiculopathy Peptic ulcer disease Right hip pain Seronegative arthritis Skin lesion of right arm Surgical History Surgical History H/O: hysterectomy Hx laparoscopic cholecystectomy 08/18/21 Family History Family History Grandparent Pancreatic cancer Sibling Cerebrovascular accident Father CHF (congestive heart failure) Diabetes mellitus Hypertension Mother Kidney failure Hypoparathyroidism Hypertension Sibling COVID-19 Hypertension Diabetes mellitus Social History Social History Smoking packs per day: 1 Smoking cigarettes per day: 20.0 Years smoked: 26 Smoking pack-years: 26.00 Smoking status: Current every day smoker Tobacco type: e-cigarettes/vaping Second hand tobacco smoke exposure: Yes Additional smoking assessment comments: 1 ppd x 26 years Alcohol intake: current Drinks per week: 2 Substance use: former Substance use type: marijuana Other substance usage details: edibles rarely Lack of Transportation: No Lack of Food: Never True Current Housing: I Have Housing Concerned About Future Housing: No Difficulty Paying Gas/Electric Bills: No Difficulty Paying for Meds: No Currently Unemployed: No Education: High School Diploma/GED Difficulty w/ Childcare or Family Care: No Living arrangements: with family Occupation/Education: occupation 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 HEAD: normocephalic, atraumatic. EYES: PERRLA/EOMI, conjunctivae clear. NOSE: Normal no drainage NECK: Supple. No adenopathy, no masses. RESPIRATORY: Airway patent, respirations nonlabored. Clear to auscultation bilaterally, no rales, rhonchi, wheezing. CARDIOVASCULAR: Regular rate and rhythm without murmurs rubs or gallops. ABDOMINAL: Right upper and right lower quadrant tenderness to palpation MUSCULOSKELETAL: Moves all extremities. Strength/ROM intact, No edema, No calf tenderness. NEURO: Alert. Cranial ner
[2023-05-19 09:21] LABS: Appearance Urine Clear (Clear); Bilirubin Urine Negative (Negative); Blood Urine Negative (Negative); Color Urine Yellow (Yellow); Glucose Urine UA Negative (Negative); Ketones Urine Negative (Negative); Leukocyte Esterase Ur Negative LEU/UL (Negative); Nitrate Urine Negative (Negative); Protein Urine Negative (Negative); Specific Grav Ur 1.021 (1.001-1.035); Urobilinogen Urine 0.2 mg/dL (<2.0); pH Urine 5.5 (5.0-9.0)
[2023-05-19] MEDS: ONDANSETRON INJ 4 MG/2 ML VIAL IV PUSH (09:25)
[2023-05-19] MEDS: HYDROmorphone HCL INJ (*CRX) 1 MG/ML SYR 0.5 MG IV PUSH (09:25)
[2023-05-19] MEDS: SODIUM CHLORIDE 0.9% IV 1,000 ML 999 ML IV CONT (09:27)
[2023-05-19 09:40] LABS: Add Urine Microscopic? NO
[2023-05-19 10:01] VITALS: BP 140/71; PULSE 72; RESP 20; TEMP 36.8; O2SAT 96
[2023-05-19 11:10] VITALS: BP 122/65; PULSE 59; RESP 18; TEMP 36.4; O2SAT 98
[2023-05-19 11:55] VITALS: BP 122/65; PULSE 78; RESP 18; O2SAT 99
[2023-05-19 12:23] VITALS: BP 120/60; PULSE 80; RESP 18; TEMP 36.6; O2SAT 99
== END 2023-05-19 12:25 | disposition home or self-care (01) ==
PROVIDERS: Emergency Provider Emergency Medicine; PCP Family Medicine
DX: R11.2 Nausea with vomiting, unspecified (principal); R19.7 Diarrhea, unspecified; R10.11 Right upper quadrant pain; F17.210 Nicotine dependence, cigarettes, uncomplicated
CPT/HCPCS: 36415; 74177; 80053; 81003; 83690; 85025; 96361; 96374; 96375; 99284; J1170; J2405; J7030; Q9967

== ENCOUNTER 2024-04-11 10:42 | Emergency (ER) | payer BC, SELFPAY ==
--- NOTE | ~2024-04-11 | XR_ITS ---
EXAMINATION: XR chest 2V DATE: 04/11/2024 12:45 INDICATION: Cough. Fever. TECHNIQUE: Frontal and lateral views of the chest were obtained. COMPARISON: Chest 2 views 11/21/2020 FINDINGS: There is no pneumonia, pleural effusion, or pneumothorax. The heart size is normal. There a re surgical clips in the abdomen. There is mild chronic anterior wedging of a midthoracic vertebral b nando. IMPRESSION: 1. No acute cardiopulmonary disease. Reviewed, dictated and finalized at location B. WARE QUALITY ANALYST
--- NOTE | ~2024-04-11 | CT_ITS ---
CT of the Abdomen and Pelvis: Indication: Abdominal pain Technique: 2.5 mm axial scans were obtained through the abdomen and pelvis following intravenous adm inistration of 100 cc of Omnipaque 350. Dose reduction technique was used on this scan by utilizing a utomated exposure control and iterative reconstruction technique. The dose-length product (DLP) was 1 240.60 mGy-cm. COMPARISON: 05/19/2023 Findings: Scans through the lung bases are unremarkable. There is diffuse hepatic steatosis. Cholecystectomy clips are present. The spleen, pancreas, adrenals and kidneys are within normal limits. No evidence of aortic aneurysm. No lymphadenopathy. No bowel obstruction or bowel wall thickening. There is no evidence to suggest acute appendicitis. Images through the pelvis were performed. 3.9 cm right ovarian cyst present. Status post hysterectomy . Urinary bladder unremarkable. No ascites. Impression: 3.9 cm right ovarian cyst, unchanged. Diffuse hepatic steatosis. Reviewed, dictated and finalized at [facility]. S AND SKINS COLORER Impression: 3.9 cm right ovarian cyst, unchanged. Diffuse hepatic steatosis.
[2024-04-11 10:52] VITALS: BP 133/87; PULSE 95; RESP 15; TEMP 36.7; O2SAT 99
--- NOTE | 2024-04-11 12:07 | ECG_ITS ---
Test Date: 2024-04-11 14:02:35 Measurements Intervals [place] Rate: 66 P: 51 TN: 148 QRS: 45 QRSD: 89 T: 17 QT: 417 QTc: 440 Interpretive Statements SINUS RHYTHM LOW QRS VOLTAGE IN PRECORDIAL LEADS [QRS DEFLECTION < 1.0 mV IN CHEST LEADS] NONSPECIFIC T-WAVE ABNORMALITY No previous ECG available for comparison Electronically Signed On 04-11-2024 14:22:17 DIGITAL LEARNING PLATFORMS MANAGER by Janette Lundberg
--- NOTE | 2024-04-11 12:08 | ED_ITS ---
HPI - Abdominal Pain General Chief Complaint: Abdominal Pain Stated Complaint: dx pancreatitis, sent by PCP Time Seen by Provider: 04/11/24 12:08 Focused HPI: Patient is a 48-year-old female who presents to the ER with abdominal pain and diarrhea. She reports she went to a different ER on Monday and they told her she had pancreatitis but did not admit her. Patient reports right upper quadrant pain has increased since she has tried to advance her diet. She also reports she has just returned from a cruise. Since she has been back she has had symptoms of cough, R flank pain, decreased urination. Patient reports she believes she is dehydrated. GENERAL: Well-appearing, well-nourished, and in no acute distress. HEAD: Normocephalic, atraumatic. CHEST: Clear to auscultation. ?No respiratory distress. HEART: Regular rate and rhythm.? NEURO: ?Alert and oriented x3. ABDOMEN: Tenderness with palpation especially in right upper quadrant. Hyperactive BS Patient screened in triage and initial orders placed.? ?Additional care and disposition to be based upon?diagnostic testing and treatment. Related Data Home Medications ?Medication ?Instructions ?Recorded ?Confirmed ?Last Taken ?Type hydroxychloroquine 200 mg tablet 200 mg PO BID 05/30/23 03/29/24 Unknown History Allergies Allergy/AdvReac Type Severity Reaction Status Date / Time sumatriptan Allergy Severe Anaphylactic Verified 04/11/24 12:58 Shock bupropion (From Wellbutrin AdvReac Severe Agitated Verified 04/11/24 12:58 SR) PMFSH Past Medical History Medical History Seronegative arthritis Right hip pain Lumbar radiculopathy Skin lesion of right arm Achilles tendon pain History of peptic ulcer Peptic ulcer disease French esophagus Anxiety Screening for thyroid disorder Screening for malignant neoplasm of breast Screening for diabetes mellitus Bipolar disorder, unspecified Chronic low back pain Surgical History Surgical History Hx of cholecystectomy Hx laparoscopic cholecystectomy 08/18/21 H/O: hysterectomy Family History Family History Grandparent Pancreatic cancer Sibling Cerebrovascular accident Father CHF (congestive heart failure) Diabetes mellitus Hypertension Mother Kidney failure Hypoparathyroidism Hypertension Sibling COVID-19 Hypertension Diabetes mellitus Social History Social History Smoking packs per day: 1 Smoking cigarettes per day: 20.0 Years smoked: 26 Smoking pack-years: 26.00 Smoking status: Former smoker Tobacco type: e-cigarettes/vaping Second hand tobacco smoke exposure: Yes Smoking end date: 11/20/23 Additional smoking assessment comments: 1 ppd x 26 years Alcohol intake: current Drinks per week: 2 Substance use: former Substance use type: marijuana Other substance usage details: edibles rarely Lack of Transportation: No Lack of Food: Never True Current Housing: I Have Housing Concerned About Future Housing: No Difficulty Paying Gas/Electric Bills: No Difficulty Paying for Meds: No Currently Unemployed: No Education: High School Diploma/GED Difficulty w/ Childcare or Family Care: No Living arrangements: with family Occupation/Education: occupation 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[employer] Gender identity (if verbalized by the patient): Female Sexual Orientation (if Verbalized by the Patient): Straight or Heterosexual Spiritual care concerns: No Agree to blood products: Yes Course Vital Signs Vital signs: Vital Signs Temperature 36.7 C 04/11/24 10:52 Pulse Rate 95 04/11/24 10:52 Respiratory Rate 15 04/11/24 10:52 Blood Pressure 133/87 04/11/24 10:52 Pulse Oximetry 99 04/11/24 10:52 Oxygen Delivery Room Air 04/11/24 10:52 Temperature 36.7 C 04/11/24 10:52 Pulse Rate 67 04/11/24 15:00 Respiratory Rate 15 04/11/24 15:00 Blood Pressure 122/79 04/11/24 15:00 Pulse Oximetry 98 04/11/24 15:00 Oxygen Delivery Room Air 04/11/24 10:52 MDM - Abdominal Pain Lab Data 04/11/24 12:30 04/11/24 12:30 Labs: Lab Results 04/11/24 04/11/24 Range/Units 12:30 13:03 WBC 3.1 L (4.5-10.0) K/mm3 RBC 5.08 (4.2-5.4) M/mm3 Hgb 15.5 H (12.0-15.0) g/dL Hct 44.9 (37.0-47.0) % MCV 88.4 (80-100) fl MCH 30.5 (26-34) pg MCHC 34.5 (32-36) g/dl RDW 11.9 (11.5-14.5) % Plt Count 166 (150-375) k/mm3 MPV 9.5 (7.4-10.4) fl Immature Gran % (Auto) 0.3 (0-0.5) % Neut % (Auto) 44.9 L (45.5-73.1) % Lymph % (Auto) 39.6 (18.3-44.2) % [place] % (Auto) 14.3 H (2.6-8.5) % Eos % (Auto) 0.3 (0-4.4) % Baso % (Auto) 0.6 (0.2-1.2) % Lymph # (Auto) 1.22 (0.9-3.2) K/mm3 [place] # (Auto) 0.4 (0.1-0.6) K/mm3 Eos # (Auto) 0.0 (0-0.3) K/mm3 Baso # (Auto) 0.0 (0.0-0.1) K/mm3 Abs Immat Gran (auto) 0.01 (0.00-0.031) K/mm3 Absolute Neuts (auto) 1.4 (1.3-6.7) K/mm3 Absolute Nucleated RBC 0.000 (0.0-0.012) K/mm3 Nucleated RBC % 0.0 (0.0-0.2) % PT 13.3 (11.1-14.7) Seconds INR 1.0 APTT 27.8 (22.3-36.8) Seconds Sodium 139 (137-145) mmol/L Potassium 3.4 (3.4-5.0) mmol/L Chloride 102 (98-107) mmol/L Carbon Dioxide 25 (22-30) mmol/L Anion Gap 12 (4-12) mmol/L BUN 18 H (7-17) mg/dL Creatinine 0.60 L (0.7-1.0) mg/dL Estim Creat Clear Calc 102 ml/min Estimated GFR > 60 (59 - ) Glucose 101 (65-110) mg/dL Calcium 9.1 (8.4-10.2) mg/dL Total Bilirubin 0.6 (0.2-1.3) mg/dL AST 51 H (14-36) U/L ALT 82 H (6-35) U/L Alkaline Phosphatase 55 (38-126) U/L Troponin I < 0.012 (0.000-0.034) ng/mL Total Protein 7.0 (6.3-8.2) g/dL Albumin 4.4 (3.5-5.1) g/dL Lipase 111 (23-300) U/L Urine Color Dark yellow (Yellow) Urine Appearance Cloudy H (Clear) Urine pH 5.5 (5.0-9.0) Ur Specific [place] 1.030 (1.001-1.035) Urine Protein 2+ H (Negative) mg/dL Urine Glucose (UA) Negative (Negative) mg/dL Urine Ketones Trace H (Negative) mg/dL Ur Blood (Man) Negative (Negative) Urine Nitrate Negative (Negative) Urine Bilirubin 1+ H (Negative) Urine Urobilinogen 1.0 (<2.0) mg/dL Add Ur Microanalysis Reviewed Leukocyte Esterase Rfl Negative (Negative) ZULEMA/UL Urine RBC 3-5 H (0-2) /hpf Urine WBC 0-5 (0-3) /hpf Ur Squamous Epith Cells Moderate (Few) /hpf Urine Bacteria 1+ H /hpf Urine Casts 3-5 Influenza A (RT-PCR) Positive A (Negative) Influenza B (RT-PCR) Negative (Negative) RSV (RT-PCR) Negative (Negative) SARS-CoV-2 RNA (RT-PCR) Negative (Negative) Imaging Data Radiologist's impression: ITS Impressions Chest X-Ray 04/11/24 12:53 IMPRESSION: 1. No acute cardiopulmonary disease. Abdomen/Pelvis CT 04/11/24 13:23 Impression: 3.9 cm right ovarian cyst, unchanged. Diffuse hepatic steatosis. Discharge Plan Discharge Clinical Impression: Viral gastroenteritis, Influenza A Patient Disposition: Home, Self-Care Condition: Stable Instructions: Influenza (DC), Gastroenteritis (ED) Additional Instructions: RETURN IF SYMPTOMS ARE WORSENING , CALL YOUR FAMILY PHYSICIAN FOR APPOINTMENT, TAKE TYLENOL NEEDED FOR ACHES AND PAIN, CONTINUE HOME MEDICATIONS. Patient Language: Thai Prescriptions: New ondansetron 4 mg tablet,disintegrating 4 mg PO Q4H Qty: 10 0RF Rx Instructions: 1st dose 1-2 hr before radiation No Action omeprazole 40 mg capsule,delayed release(DR/EC) 40 mg PO DAILY 30 Days Qty: 30 5RF hydroxychloroquine 200 mg tablet 200 mg PO BID alprazolam 0.5 mg tablet 0.5 mg PO BID PRN (Reason: panic attack(s)) Qty: 20 0RF ondansetron 4 mg tablet,disintegrating 4 mg PO Q8H PRN (Reason: nausea and vomiting) Qty: 20 0RF tizanidine 4 mg tablet 4 mg PO Q8H PRN (Reason: muscle spasticity) Qty: 90 1RF duloxetine [Cymbalta] 30 mg capsule,delayed release(DR/EC) 30 mg PO DAILY Qty: 90 2RF duloxetine [Cymbalta] 60 mg capsule,delayed release(DR/EC) 60 mg PO DAILY Qty: 90 1RF topiramate [Topamax] 25 mg tablet 25 mg PO BID Qty: 60 1RF phentermine 15 mg capsule 15 mg PO DAILY Qty: 30 1RF Rx Instructions: must administer 2 hours after breakfast amitriptyline 25 mg tablet 25 mg PO QHS Qty: 30 1RF Follow-up/Referrals: Koko Eli MD [Primary Care Provider] -
--- NOTE | 2024-04-11 12:20 | ED.ABDPAIN ---
HPI - Abdominal Pain General Chief Complaint: Abdominal Pain Stated Complaint: dx pancreatitis, sent by PCP Time Seen by Provider: 04/11/24 12:08 Source: patient and family Mode of arrival: ambulatory Limitations: no limitations History of Present Illness HPI narrative: 48 YEARS OLD WHITE FEMALE CAME TO THE ED BY A PRIVATE CAR WITH HER COMPLAINING OF ABDOMINAL PAIN WITH NAUSEA FOR THE LAST FEW DAYS WAS SEEN AT [facility] 5 DAYS AGO, PATIENT IS TELLING ME THAT HER LIPASE WAS ELEVATED WITH NEGATIVE CT SCAN AND WAS TOLD THAT SHE HAVE PANCREATITIS ON EACH TO GO HOME ON AT ORAL FLUID. PATIENT BEEN TAKING ORAL FLUIDS OVER THE LAST 5 DAYS BUT COMPLAINING OF NAUSEA, VOMITING INCREASED ABDOMINAL PAIN AND A LOT OF DIARRHEA ANY TIME SHE HAVE P.O. INTAKE FOLLOWED IMMEDIATELY BY DIARRHEA. HISTORY OF DEPRESSION ARE A MIGRAINE HEADACHE, USES MARIJUANA DAILY, COMPLETE HYSTERECTOMY CHOLECYSTECTOMY PAIN DIVERTICULITIS. PATIENT DENIES ANY FEVER OR CHILLS. Related Data Home Medications ?Medication ?Instructions ?Recorded ?Confirmed ?Last Taken ?Type hydroxychloroquine 200 mg tablet 200 mg PO BID 05/30/23 03/29/24 Unknown History Allergies Allergy/AdvReac Type Severity Reaction Status Date / Time sumatriptan Allergy Severe Anaphylactic Verified 04/11/24 12:58 Shock bupropion (From Wellbutrin AdvReac Severe Agitated Verified 04/11/24 12:58 SR) Review of Systems Review of Systems: All systems reviewed & are unremarkable except as noted in HPI and below PMFSH Past Medical History Medical History Seronegative arthritis Right hip pain Lumbar radiculopathy Skin lesion of right arm Achilles tendon pain History of peptic ulcer Peptic ulcer disease French esophagus Anxiety Screening for thyroid disorder Screening for malignant neoplasm of breast Screening for diabetes mellitus Bipolar disorder, unspecified Chronic low back pain Surgical History Surgical History Hx of cholecystectomy Hx laparoscopic cholecystectomy 08/18/21 H/O: hysterectomy Family History Family History Grandparent Pancreatic cancer Sibling Cerebrovascular accident Father CHF (congestive heart failure) Diabetes mellitus Hypertension Mother Kidney failure Hypoparathyroidism Hypertension Sibling COVID-19 Hypertension Diabetes mellitus Social History Social History Smoking packs per day: 1 Smoking cigarettes per day: 20.0 Years smoked: 26 Smoking pack-years: 26.00 Smoking status: Former smoker Tobacco type: e-cigarettes/vaping Second hand tobacco smoke exposure: Yes Smoking end date: 11/20/23 Additional smoking assessment comments: 1 ppd x 26 years Alcohol intake: current Drinks per week: 2 Substance use: former Substance use type: marijuana Other substance usage details: edibles rarely Lack of Transportation: No Lack of Food: Never True Current Housing: I Have Housing Concerned About Future Housing: No Difficulty Paying Gas/Electric Bills: No Difficulty Paying for Meds: No Currently Unemployed: No Education: High School Diploma/GED Difficulty w/ Childcare or Family Care: No Living arrangements: with family Occupation/Education: occupation 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[employer] Gender identity (if verbalized by the patient): Female Sexual Orientation (if Verbalized by the Patient): Straight or Heterosexual Spiritual care concerns: No Agree to blood products: Yes Exam Narrative: GENERAL APPEARANCE: WELL-DEVELOPED, WELL-NOURISHED SKIN: NORMAL COLOR HEAD: NORMOCEPHALIC, NONTRAUMATIC EYES: CLEAR CONJUNCTIVA ENT: OROPHARYNX NORMAL, EARS NORMAL, NOSE NORMAL NECK: SUPPLE, NONTENDER CHEST AND RESPIRATORY: AIRWAY PATENT, NO RESPIRATORY DISTRESS, NO ACCESSORY MUSCLE USE HEART: REGULAR RATE/RHYTHM ABDOMEN: SOFT, DIFFUSE TENDERNESS UPPER ABDOMEN, NO GUARDING OR REBOUND, QUITE BOWEL SOUNDS VASCULAR: NORMAL PERIPHERAL PULSES, NORMAL CAPILLARY REFILL. 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 TESTED, NO GROSS MOTOR DEFICIT Course Vital Signs Vital signs: Vital Signs Temperature 36.7 C 04/11/24 10:52 Pulse Rate 95 04/11/24 10:52 Respiratory Rate 15 04/11/24 10:52 Blood Pressure 133/87 04/11/24 10:52 Pulse Oximetry 99 04/11/24 10:52 Oxygen Delivery Room Air 04/11/24 10:52 Temperature 36.7 C 04/11/24 10:52 Pulse Rate 81 04/11/24 12:56 Respiratory Rate 16 04/11/24 12:56 Blood Pressure 127/91 H 04/11/24 12:56 Pulse Oximetry 99 04/11/24 12:56 Oxygen Delivery Room Air 04/11/24 10:52 MDM - Abdominal Pain MDM Narrative Medical decision making narrative: PATIENT CAME TO THE ED BY PRIVATE CAR WITH ABDOMINAL PAIN VITAL SIGNS ARE STABLE PHYSICAL EXAMINATION SHOWING TENDERNESS UPPER ABDOMEN DIFFERENTIAL DIAGNOSIS PANCREATITIS, CHOLECYSTITIS, DIVERTICULITIS, DEHYDRATION, ELECTROLYTE IMBALANCE, URINARY TRACT INFECTION BLOOD WORKUP TODAY INCLUDES CBC, CMP, LIPASE, SHOWED WBC 3.1, HEMOGLOBIN 15.5, BUN 18, CREATININE 0.6, AST 51 ALT 82, LIPASE 111, S URINALYSIS SHOWED CT ABDOMEN AND PELVIS WITH IV CONTRAST SHOWED 3.9 cm right ovarian cyst, unchanged. Diffuse hepatic steatosis CHEST X-RAY SHOWED NO ACUTE ABNORMALITY PATIENT TESTED POSITIVE FOR FLU TODAY PATIENT'S SYMPTOM STARTED MORE THAN 5 DAYS AGO, PATIENT IS NOT A CANDIDATE FOR TAMIFLU AT THIS TIME. Differential Diagnosis Differential diagnosis: Likely other ( ABOVE) Medical Records Attestation: I reviewed the patient's medical records. Lab Data Attestation: I reviewed the patient's lab results. 04/11/24 12:30 04/11/24 12:30 Labs: Lab Results 04/11/24 04/11/24 Range/Units 12:30 13:03 WBC 3.1 L (4.5-10.0) K/mm3 RBC 5.08 (4.2-5.4) M/mm3 Hgb 15.5 H (12.0-15.0) g/dL Hct 44.9 (37.0-47.0) % MCV 88.4 (80-100) fl MCH 30.5 (26-34) pg MCHC 34.5 (32-36) g/dl RDW 11.9 (11.5-14.5) % Plt Count 166 (150-375) k/mm3 MPV 9.5 (7.4-10.4) fl Immature Gran % (Auto) 0.3 (0-0.5) % Neut % (Auto) 44.9 L (45.5-73.1) % Lymph % (Auto) 39.6 (18.3-44.2) % [place] % (Auto) 14.3 H (2.6-8.5) % Eos % (Auto) 0.3 (0-4.4) % Baso % (Auto) 0.6 (0.2-1.2) % Lymph # (Auto) 1.22 (0.9-3.2) K/mm3 [place] # (Auto) 0.4 (0.1-0.6) K/mm3 Eos # (Auto) 0.0 (0-0.3) K/mm3 Baso # (Auto) 0.0 (0.0-0.1) K/mm3 Abs Immat Gran (auto) 0.01 (0.00-0.031) K/mm3 Absolute Neuts (auto) 1.4 (1.3-6.7) K/mm3 Absolute Nucleated RBC 0.000 (0.0-0.012) K/mm3 Nucleated RBC % 0.0 (0.0-0.2) % PT 13.3 (11.1-14.7) Seconds INR 1.0 APTT 27.8 (22.3-36.8) Seconds Sodium 139 (137-145) mmol/L Potassium 3.4 (3.4-5.0) mmol/L Chloride 102 (98-107) mmol/L Carbon Dioxide 25 (22-30) mmol/L Anion Gap 12 (4-12) mmol/L BUN 18 H (7-17) mg/dL Creatinine 0.60 L (0.7-1.0) mg/dL Estim Creat Clear Calc 102 ml/min Estimated GFR > 60 (59 - ) Glucose 101 (65-110) mg/dL Calcium 9.1 (8.4-10.2) mg/dL Total Bilirubin 0.6 (0.2-1.3) mg/dL AST 51 H (14-36) U/L ALT 82 H (6-35) U/L Alkaline Phosphatase 55 (38-126) U/L Troponin I < 0.012 (0.000-0.034) ng/mL Total Protein 7.0 (6.3-8.2) g/dL Albumin 4.4 (3.5-5.1) g/dL Lipase 111 (23-300) U/L Urine Color Dark yellow (Yellow) Urine Appearance Cloudy H (Clear) Urine pH 5.5 (5.0-9.0) Ur Specific [place] 1.030 (1.001-1.035) Urine Protein 2+ H (Negative) mg/dL Urine Glucose (UA) Negative (Negative) mg/dL Urine Ketones Trace H (Negative) mg/dL Ur Blood (Man) Negative (Negative) Urine Nitrate Negative (Negative) Urine Bilirubin 1+ H (Negative) Urine Urobilinogen 1.0 (<2.0) mg/dL Add Ur Microanalysis Reviewed Leukocyte Esterase Rfl Negative (Negative) ZULEMA/UL Urine RBC 3-5 H (0-2) /hpf Urine WBC 0-5 (0-3) /hpf Ur Squamous Epith Cells Moderate (Few) /hpf Urine Bacteria 1+ H /hpf Urine Casts 3-5 Influenza A (RT-PCR) Positive A (Negative) Influenza B (RT-PCR) Negative (Negative) RSV (RT-PCR) Negative (Negative) SARS-CoV-2 RNA (RT-PCR) Negative (Negative) Imaging Data Radiologist's impression: ITS Impressions Chest X-Ray 04/11/24 12:53 IMPRESSION: 1. No acute cardiopulmonary disease. Abdomen/Pelvis CT 04/11/24 13:23 Impression: 3.9 cm right ovarian cyst, unchanged. Diffuse hepatic steatosis. Critical Care Time Critical Care Time Critical Care Time: No Discharge Plan Discharge Clinical Impression: Viral gastroenteritis, Influenza A Patient Disposition: Home, Self-Care Condition: Stable Instructions: Influenza (DC), Gastroenteritis (ED) Additional Instructions: RETURN IF SYMPTOMS ARE WORSENING , CALL YOUR FAMILY PHYSICIAN FOR APPOINTMENT, TAKE TYLENOL NEEDED FOR ACHES AND PAIN, CONTINUE HOME MEDICATIONS. Patient Language: Pakistani Prescriptions: New ondansetron 4 mg tablet,disintegrating 4 mg PO Q4H Qty: 10 0RF Rx Instructions: 1st dose 1-2 hr before radiation No Action omeprazole 40 mg capsule,delayed release(DR/EC) 40 mg PO DAILY 30 Days Qty: 30 5RF hydroxychloroquine 200 mg tablet 200 mg PO BID alprazolam 0.5 mg tablet 0.5 mg PO BID PRN (Reason: panic attack(s)) Qty: 20 0RF ondansetron 4 mg tablet,disintegrating 4 mg PO Q8H PRN (Reason: nausea and vomiting) Qty: 20 0RF tizanidine 4 mg tablet 4 mg PO Q8H PRN (Reason: muscle spasticity) Qty: 90 1RF duloxetine [Cymbalta] 30 mg capsule,delayed release(DR/EC) 30 mg PO DAILY Qty: 90 2RF duloxetine [Cymbalta] 60 mg capsule,delayed release(DR/EC) 60 mg PO DAILY Qty: 90 1RF topiramate [Topamax] 25 mg tablet 25 mg PO BID Qty: 60 1RF phentermine 15 mg capsule 15 mg PO DAILY Qty: 30 1RF Rx Instructions: must administer 2 hours after breakfast amitriptyline 25 mg tablet 25 mg PO QHS Qty: 30 1RF Follow-up/Referrals: Koko Eli MD [Primary Care Provider] -
[2024-04-11 12:37] LABS: Basophils Percent Auto 0.6 % (0.2-1.2); Eosinophils Percent Auto 0.3 % (0-4.4); Hematocrit 44.9 % (37.0-47.0); Hemoglobin 15.5 g/dL (12.0-15.0); Immature Granulocyte Absolute 0.01 K/mm3 (0.00-0.031); Immature Granulocyte Percent A 0.3 % (0-0.5); Lymphocytes Absolute Auto 1.22 K/mm3 (0.9-3.2); Lymphocytes Percent Auto 39.6 % (18.3-44.2); Mean Corpuscular HGB Conc 34.5 g/dl (32-36); Mean Corpuscular Hemoglobin 30.5 pg (26-34); Mean Corpuscular Volume 88.4 fl (80-100); Mean Platelet Volume 9.5 fl (7.4-10.4); Monocytes Absolute Auto 0.4 K/mm3 (0.1-0.6); Monocytes Percent Auto 14.3 % (2.6-8.5); Neutrophils Absolute Auto 1.4 K/mm3 (1.3-6.7); Neutrophils Percent Auto 44.9 % (45.5-73.1); Platelet Count Result 166 k/mm3 (150-375); Red Blood Count 5.08 M/mm3 (4.2-5.4); Red Cell Distribution Width 11.9 % (11.5-14.5); White Blood Count 3.1 K/mm3 (4.5-10.0)
[2024-04-11 12:47] LABS: Alanine Aminotransferase 82 U/L (6-35); Albumin Level 4.4 g/dL (3.5-5.1); Alkaline Phosphatase 55 U/L (38-126); Anion Gap 12 mmol/L (4-12); Aspartate Amino Transferase 51 U/L (14-36); Bilirubin,Total 0.6 mg/dL (0.2-1.3); Blood Urea Nitrogen 18 mg/dL (7-17); Calcium 9.1 mg/dL (8.4-10.2); Carbon Dioxide 25 mmol/L (22-30); Chloride 102 mmol/L (98-107); Estimated CRCL calculation 102 ml/min; Estimated Glomerular Filt Rate > 60; Glucose 101 mg/dL (65-110); Lipase 111 U/L (23-300); Potassium 3.4 mmol/L (3.4-5.0); Sodium 139 mmol/L (137-145)
[2024-04-11 12:49] LABS: Prothrombin Time 13.3 Seconds (11.1-14.7)
[2024-04-11 12:50] LABS: Partial Thromboplastin Time 27.8 Seconds (22.3-36.8)
[2024-04-11 12:56] VITALS: BP 127/91; PULSE 73; PULSE 81; RESP 14; RESP 16; O2SAT 97; O2SAT 99
[2024-04-11 12:58] LABS: Troponin I < 0.012 ng/mL (0.000-0.034)
[2024-04-11] MEDS: SODIUM CHLORIDE 0.9% IV 1,000 ML 999 ML IV CONT (12:59)
[2024-04-11] MEDS: ONDANSETRON INJ 4 MG/2 ML VIAL IV PUSH (12:59)
[2024-04-11 13:01] VITALS: BP 127/82; PULSE 88; RESP 18; O2SAT 97
[2024-04-11] MEDS: HYDROmorphone HCL INJ (*CRX) 1 MG/ML SYR 0.5 MG IV PUSH (13:01)
[2024-04-11 13:49] LABS: Add Urine Microscopic? YES; Appearance Urine Cloudy (Clear); Bacteria Urine 1+ /hpf; Bilirubin Urine 1+ (Negative); Blood Urine Negative (Negative); Color Urine Dark Yellow (Yellow); Glucose Urine UA Negative (Negative); Influenza A QL RT-PCR Positive (Negative); Influenza B QL RT-PCR Negative (Negative); Ketones Urine Trace mg/dL (Negative); Leukocyte Esterase Ur Negative LEU/UL (Negative); Need Manual Microscopic Reviewed; Nitrate Urine Negative (Negative); Protein Urine 2+ mg/dL (Negative); RSV RNA, RT-PCR Negative (Negative); SARS-CoV-2 RNA PCR Negative (Negative); Squamous Epithelial Cell Urine Moderate /hpf (Few); WBC Urine 0-5 /hpf (0-3); pH Urine 5.5 (5.0-9.0)
[2024-04-11 14:54] VITALS: BP 122/79; PULSE 68; RESP 15; O2SAT 97
[2024-04-11 15:00] VITALS: BP 122/79; PULSE 67; RESP 15; O2SAT 98
--- OUTSIDE RECORDS SUMMARY | 2024-04-12 04:56 | XMS_ITS | Clinical Summary ---
Author Organization [facility] Address [facility] [place] [address] [place] [address] Care Team Providers Care Green Lumber Grader Name Role Phone Koko Eli MD Primary Care Provider [phone] Allergies Active Allergy Reactions Criticality Noted Date Comments Sumatriptan Anaphylaxis High 09/22/2019 Medications butalbital-acetami nophen-caffeine (FIORICET) 50-300-40 MG capsule Take 1 capsule by mouth every 4 (four) hours as needed for Pain. Active magnesium oxide (MAG-OX) 250 MG tablet Take 1 tablet (250 mg total) by mouth daily. Active vitamin D3, cholecalciferol, 1000 UNIT Tab tablet Take 1 tablet (1,000 Units total) by mouth daily. Active ALPRAZolam (XANAX) 0.5 MG tablet Take 1 tablet (0.5 mg total) by mouth 3 (three) times daily. Active amitriptyline (ELAVIL) 25 MG tablet Take 1 tablet (25 mg total) by mouth nightly at bedtime. 06/06/19 24 Active gabapentin (NEURONTIN) 600 MG tablet 1 tab(s) orally at bedtime for 30 days 11/25/19 23 Active omeprazole (PRILOSEC) 20 MG capsule Take 1 capsule (20 mg total) by mouth daily. Active DULoxetine (CYMBALTA) 60 MG capsule Take 90 mg by mouth daily. Active meloxicam (MOBIC) 7.5 MG tablet Take 1 tablet (7.5 mg total) by mouth 2 (two) times daily. Active hydroxychloroquine (PLAQUENIL) 200 MG tablet Take 1 tablet (200 mg total) by mouth 2 (two) times daily. Active HYDROcodone-acetam inophen (NORCO) 5-325 MG tabletIndications: Acute Pain < 7 Day Supply Take 1 tablet by mouth every 6 (six) hours as needed for Pain. Indications : Acute Pain < 7 Day Supply 15 tablet 04/07/19 25 Active ondansetron (ZOFRAN-ODT) 4 MG disintegrating tablet Take 1 tablet (4 mg total) by mouth every 8 (eight) hours as needed for Nausea. 20 tablet 04/07/19 25 Active ondansetron (ZOFRAN-ODT) 4 MG disintegrating tablet DISSOLVE 1 TABLET ON THE TONGUE EVERY 8 HOURS NEEDED FOR NAUSEA OR VOMITING 05/19/19 24 025 Discontinued HYDROcodone-acetam inophen (NORCO) 5-325 MG tabletIndications: Acute Pain < 7 Day Supply Take 1 tablet by mouth every 6 (six) hours as needed. Indications : Acute Pain < 7 Day Supply 12 tablet 12/02/19 24 025 Discontinued cefdinir (OMNICEF) 300 MG Cap capsule Take 1 capsule (300 mg total) by mouth 2 (two) times daily for 10 days. 20 capsule 03/25/19 25 025 metroNIDAZOLE (FLAGYL) 500 MG tablet Take 1 tablet (500 mg total) by mouth 3 (three) times daily for 10 days. 30 tablet 03/25/19 25 025 acetaminophen (TYLENOL) 500 MG tablet Take 2 tablets (1,000 mg total) by mouth every 6 (six) hours as needed. 30 tablet 03/25/19 25 025 Active Problems Problem Noted Date Diagnosed Date Nausea 06/28/2023 Diarrhea 06/28/2023 Generalized abdominal pain 06/28/2023 Typhlitis 10/15/2021 Encounters Date Type Department Care Team Description 04/07/2024 11:25 AM [facility] - 04/07/2024 2:06 PM [facility] Emergency [facility] Emergency Room [address] [phone] Floyd Whyte MD Abdominal Pain Discharge Disposition: Home or Self Care (Routine Discharge) 04/07/2024 Travel 03/25/2024 10:54 AM [facility] [employer] - 03/25/2024 2:45 PM [facility] Emergency [facility] Emergency Room [address] [place] [address] Floyd Whyte MD Abdominal Pain Discharge Disposition: Home or Self Care (Routine Discharge) 03/25/2024 Travel from Last 3 Months Family History Medical History Relation Comments Heart Disease Brother Thyroid Disease Brother Diabetes Father Heart Disease Father Cancer Maternal Grandmother Thyroid Disease Mother Diabetes Paternal Grandfather Diabetes Paternal Grandmother Relation Status Comments Brother Father Maternal Grandmother Mother Paternal Grandfather Paternal Grandmother Social History Tobacco Use Types Packs/Day Years Used Date Smoking Tobacco: Former Cigarettes Smokeless Tobacco: Never Tobacco Cessation:Counseling Given: Not Answered Alcohol Use Standard Drinks/Week Comments Not Currently 0 (1 standard drink = 0.6 oz pur e alcohol) Comments No Sex and Gender Information Value Date Recorded Sex Assigned at Female 06/19/2023 3:07 PM CDT Legal Sex Female 6:23 PM CDT Gender Identity Female 06/19/2023 3:07 PM CDT Sexual Orientation Straight 06/19/2023 3: 07 PM CDT Travel History Travel Start Travel End [facility] 04/05/2024 04/06/2024 Last Filed Vital Signs Vital Sign Reading Time Taken Comments Blood Pressure 113/74 04/07/2024 1:47 PM [facility] [employer] [employer] Pulse 97 04/07/2024 1:47 PM [facility] [employer] [employer] Temperature 39 ??C (102.2 ??F) 04/07/2024 1: 47 PM [facility] [employer] [employer] ED provider Floyd Whyte notified. Respiratory Rate 18 04/07/2024 1:47 PM [facility] [employer] [employer] Oxygen Saturation 100% 04/07/2024 1:4 7 PM [facility] [employer] [employer] Inhaled Oxygen Concentration - - Weight 98 kg (216 lb 0.8 oz) 04/07/2024 11:25 AM [facility] [employer] [employer] Height 157.5 cm (5' 2 ) 04/07/2024 11:2 5 AM [facility] [employer] Body Mass Index 39.52 04/07/2024 11:25 AM [facility] [employer] [employer] Plan of Treatment Health Maintenance Due Date Last Done Comments Annual Physical 1976 PHQ-2 (Physician Pierron) 1985 Hepatitis C 09/13/1991 DTaP, Tdap and Td Vaccines ( 1 - Tdap) 1992 Hepatitis B Vaccines (1 of 3 - 19+ 3-dose series) 1992 Mammogram Screening 2013 Zoster Vaccines (1 of 2) 09/13/2023 COVID-19 Vaccine (1 - 2023-2 5 season) 2023 Influenza Adult (#1) 2023 Colorectal Cancer Screening Colonoscopy (10 Years) 08/14/2033 08/15/2023, 11/17/2021, 11/17/2021 Meningococcal B Vaccine Aged Out No l onger eligible based on patient's age to complete this topic Meningococcal Vaccine Aged Out No abhay rosa eligible based on patient's age to complete this topic Pneumococcal Vaccine: Pediatrics (0 to 5 Years) and At-Risk Patients (6 to 64 Years) Aged Out No longer eligible b ased on patient's age to complete this topic RSV Immunizations Under 20 Months Aged Out No longer eligible b ased on patient's age to complete this topic Goals Goal Patient Goal Type Associated Problems Recent Progress Patient-Stated? Author Health - patient able to perform ADLs independently General No Donya Nicolas, complaint adjuster Procedure Name Priority Date/Time Associated Diagnosis Comments URINE BACTERIA CULTURE STAT 1:47 PM [facility] [employer] [employer] CT ABD+PEL W CON STAT 04/07/2024 12:1 8 PM [facility] [employer] URINALYSIS, AUTO, COMPLETE STAT 04/07/2024 12:05 PM [facility] CORONAVIRUS (COVID 19) STAT 11:55 AM [facility] INFLUENZA A & B STAT 04/07/2024 11:55 AM [facility] [employer] CULTURE, BACTERIA, BLOOD STAT 04/07/2024 11:48 AM [facility] LACTIC ACID W REFLEX (SEPSIS) STAT 04/07/2024 11:48 AM [facility] [employer] [employer] LIPASE STAT 04/07/2024 11:30 AM [facility] [employer] [employer] COMPREHENSIVE METABOLIC PANEL STAT 04/07/2024 11:30 AM [facility] [employer] [employer] CBC W/DIFF AUTOMATED STAT 04/07/2024 11:30 AM [facility] [address] ABD+PEL W CON STAT 03/25/2024 12:2 4 PM [facility] [employer] [employer] URINALYSIS, AUTO, COMPLETE STAT 03/25/2024 11:20 AM [facility] [employer] [employer] LIPASE STAT 03/25/2024 11:20 AM [facility] [employer] [employer] COMPREHENSIVE METABOLIC PANEL STAT 03/25/2024 11:20 AM [facility] [employer] [employer] CBC W/DIFF AUTOMATED STAT 03/25/2024 11:20 AM [facility] [employer] [employer] COLONOSCOPY Routine 11/17/2021 9:43 AM CDT from Last 3 Months or Most Recently Relevant to Health Maintenance Results * CULTURE URINE (04/07/2024 1:47 PM [facility] [employer] [employer]) SPEC DESCRIPTION URINE CLEAN CATCH 04/07/2024 1:48 PM [facility] [employer] [employer] SPECIAL REQUESTS NO SPECIAL REQUEST 04/07/2024 1:48 PM [facility] [employer] [employer] CULTURE RESULT NO GROWTH 2 DAYS 04/10/2024 7:57 AM [facility] [employer] [employer]ELOPMENT [facility] URINE SPECIMEN OBTAINED BY CLEAN CATCH PROCEDURE / Unknown 04/07/2024 1:47 PM [facility] [employer] [employer] 04/07/2024 6:05 PM [facility] [employer] [employer] us Floyd Whyte MD MICROBIOLOGY - GENERAL ORDERABLES Final Result [facility] [address] [place] [address], [place] [phone] [facility] [address] [place] [address], [place] [phone] * CT ABD+PEL W IV CON ONLY (04/07/2024 12:18 PM [facility] [employer] [employer]) Only the most recent of2 resultswithin the time period is included. Anatomical Region Laterality Modality Abdomen Computed Tomogra phy 04/07/2024 12:2 5 PM [facility] [employer] [employer] Impressions 04/07/2024 12:30 PM [facility] [employer] [employer] IMPRESSION: 1. Previously seen changes of acute diverticulitis involving the proximal sigmoid colon have nearly resolved, with minimal residual inflammation. No free fluid or free air. No drainable collections. 2. Scattered fluid and air filled, mildly dilated small bowel loops. Could correlate for possibility of enteritis. 3. Atherosclerosis. 4. Hepatic steatosis. 5. Right ovarian cyst measuring up to 4.2 cm. 6. Punctate nonobstructing left renal calculus. Ordered By: FLOYD WHYTE Interpreted By: James Jonas MD, 04/07/2024 12:25 PM Narrative 04/07/2024 12:30 PM [facility] [employer] [employer]OP[facility] [address] [facility] [place] [address] DATE: 04/07/2024 11:59 AM EXAMINATION: CT Abdomen and Pelvis with contrast CLINICAL HISTORY: Left lower quadrant abdominal pain. History of diverticulitis. COMPARISON: 03/25/2024 TECHNIQUE: Computed tomography of the abdomen and pelvis was obtained after administration of intravenous contrast, 75mL IOPAMIDOL 76 % IV SOLN, without immediate complication according to routine protocol. A dose lowering technique was used for this procedure, which may include, but is not limited to, dose reduction technique, automated exposure control, the use of iterative reconstruction, and ALARA (As Low As Reasonably Achievable) / Image Gently techniques. FINDINGS: Imaged portions of the lower chest reveal no definite acute findings. Diffuse hepatic steatosis. Punctate nonobstructing left renal calculus. Cholecystectomy. Spleen, pancreas, adrenal glands, and right kidney are unremarkable. Atherosclerotic calcifications noted along the aorta and its branches. No bulky mesenteric or retroperitoneal lymphadenopathy. Stomach is nondistended. Scattered fluid and air filled, mildly dilated small bowel loops, without definite transition point. Normal appendix. Scattered solid feces in the colon. No free fluid or free air in the abdomen. Previously seen changes of acute diverticulitis involving the proximal sigmoid colon have nearly resolved, with minimal residual inflammation. No fluid collections. Pelvic vascular calcifications. Right ovarian cyst measuring up to 4.2 cm. Status post hysterectomy. No bulky pelvic or inguinal lymphadenopathy. Osseous structures reveal degenerative changes. Procedure Note James Jonas MD - 04/07/2024 [facility] [address] [place] [address] DATE: 04/07/2024 11:59 AM EXAMINATION: CT Abdomen and Pelvis with contrast CLINICAL HISTORY: Left lower quadrant abdominal pain. History ofdiverticulitis. COMPARISON: 03/25/2024 TECHNIQUE: Computed tomography of the abdomen and pelvis was obtainedafter administration of intravenous contrast, 75mL IOPAMIDOL 76 % IV SOLN,without immediate complication according to routine protocol. A dose lowering technique was used for this procedure, which may include,but is not limited to, dose reduction technique, automated exposurecontrol, the use of iterative reconstruction, and ALARA (As Low AsReasonably Achievable) / Image Gently techniques. FINDINGS: Imaged portions of the lower chest reveal no definite acute findings. Diffuse hepatic steatosis. Punctate nonobstructing left renal calculus.Cholecystectomy. Spleen, pancreas, adrenal glands, and right kidney areunremarkable. Atherosclerotic calcifications noted along the aorta and itsbranches. No bulky mesenteric or retroperitoneal lymphadenopathy. Stomach is nondistended. Scattered fluid and air filled, mildly dilatedsmall bowel loops, without definite transition point. Normal appendix.Scattered solid feces in the colon. No free fluid or free air in theabdomen. Previously seen changes of acute diverticulitis involving the proximalsigmoid colon have nearly resolved, with minimal residual inflammation. Nofluid collections. Pelvic vascular calcifications. Right ovarian cystmeasuring up to 4.2 cm. Status post hysterectomy. No bulky pelvic oringuinal lymphadenopathy. Osseous structures reveal degenerative changes. IMPRESSION: 1. Previously seen changes of acute diverticulitis involving the proximalsigmoid colon have nearly resolved, with minimal residual inflammation. Nofree fluid or free air. No drainable collections. 2. Scattered fluid and air filled, mildly dilated small bowel loops. Couldcorrelate for possibility of enteritis. 3. Atherosclerosis. 4. Hepatic steatosis. 5. Right ovarian cyst measuring up to 4.2 cm. 6. Punctate nonobstructing left renal calculus. Ordered By: FLOYD WHYTE Interpreted By: James Jonas MD, 04/07/2024 12:25 PM us Floyd Whyte MD CT Final R esult * (ABNORMAL) URINALYSIS, AUTO, COMPLETE (04/07/2024 12:05 PM [facility] [employer] [employer]) Only the most recent of2 resultswithin the time period is included. COLOR (U) YELLOW 04/07/2024 12:[address] [facility] TRANSPARENCY HAZY 04/07/2024 12:[address] [facility] SPECIFIC GRAVITY (U) 1.025 1.000 - 1.030 04/07/2024 12:[address] [facility] U PH 7.0 5.0 - 9.0 04/07/2024 12:[address] [facility] LEUKOCYTES (U) TRACE(A) NEGATIVE 04/07/2024 12:[address] [facility] NITRITES NEGATIVE NEGATIVE 04/07/2024 12:[address] [facility] PROTEIN RANDOM (U) NEGATIVE NEGATIVE 04/07/2024 12:[address] [facility] GLUCOSE (U) NEGATIVE NEGATIVE 04/07/2024 12:[address] [facility] KETONES MG/DL (U) NEGATIVE NEGATIVE 04/07/2024 12:[address] [facility] BILIRUBIN (U) NEGATIVE NEGATIVE 04/07/2024 12:[address] [facility] BLOOD (U) NEGATIVE NEGATIVE 04/07/2024 12:[address] [facility] WBC/HPF 5-10 0 - 5 /HPF 04/07/2024 12:[address] [facility] RBC/HPF 0-5 0 - 5 /HPF 04/07/2024 12:24 PM [facility] [employer] [facility] EPI/HPF MANY /HPF 04/07/2024 12:24 PM [facility] [employer] [facility] BACTERIA (U) FEW /HPF 04/07/2024 12:24 PM [facility] [employer] [employer] [facility] URINE OLGUIN FEW 04/07/2024 12:24 PM [facility] [employer] [facility] Comment:SMALL BUDDING YEAST URINE SPECIMEN OBTAINED BY CLEAN CATCH PROCEDURE / Unknown 04/07/2024 12:05 PM [facility] [employer] Floyd Whyte MD URINE ORDERABLES Final Result Performing Organization Address City/[facility]/ZIP Co de Phone Number [facility] [address] [place] [address], [place] [phone] * CORONAVIRUS (COVID-19) MOLECULAR (04/07/2024 11:55 AM [facility] [employer] [employer]) CORONAVIRUS SARS COV 2 RNA NEGATIVE NEGATIVE 04/07/2024 12:29 PM [facility] [employer] [employer] Comment: NEGATIVE RESULTS DO NOT RULE OUT COVID 19 AND SHOULD NOT BE USED THE SOLE BASIS FOR TREATMENT OR PATIENT MANAGEMENT DECISIONS, INCLUDING INFECTION CONTROL DECISIONS. NEGATIVE RESULTS SHOULD BE CONSIDERED IN THE CONTEXT OF A PATIENT'S RECENT EXPOSURES, HISTORY AND THE PRESENCE OF CLINICAL SIGNS AND SYMPTOMS CONSISTENT WITH COVID 19. THE ID NOW COVID-19 2.0 TEST HAS BEEN AUTHORIZED BY THE FDA UNDER EAU FOR USE BY AUTHORIZED LABORATORIES. PERFORMED BY NUCLEIC ACID AMPLIFICATION FOR MOLECULAR QUALITATIVE DETECTION OF SARS-COV-2. SPECIMEN TYPE NASAL 04/07/2024 11:55 AM [facility] [employer] [employer] NASOPHARYNGEAL SWAB / Unknown 04/07/2024 11:55 AM [facility] [employer] Floyd Whyte MD MICROBIOLOGY - GENERAL ORDERABLES Final Result Performing Organization Address City/[facility]/ZIP Co de Phone Number [facility] [address] [place] [address], [place] [phone] * INFLUENZA A & B (04/07/2024 11:55 AM [facility] [employer] [employer]) SPECIMEN TYPE NASOPHARYNGEAL SWAB 04/07/2024 11:58 AM [facility] [employer] [employer] INFLUENZA A NEGATIVE NEGATIVE 04/07/2024 12:17 PM [facility] [employer] [employer] INFLUENZA B NEGATIVE NEGATIVE 04/07/2024 12:17 PM [facility] [employer] [employer] NASOPHARYNGEAL SWAB / Unknown 04/07/2024 11:55 AM [facility] [employer] Floyd Whyte MD MICROBIOLOGY - GENERAL ORDERABLES Final Result Performing Organization Address [facility] Co de Phone Number [facility] [address] [place] [address], [place] [phone] * LACTIC ACID W REFLEX (SEPSIS) (04/07/2024 11:48 AM [facility] [employer] [employer]) LACTIC ACID VENOUS 1.2 0.4 - 2.0 MMOL/L 04/07/2024 12:44 PM [facility] [employer] [employer] 04/07/2024 11:4 8 AM [facility] [employer] [employer] Floyd Whyte MD LABORATORY Final R esult Performing Organization Address City/[facility]/ZIP Co de Phone Number [facility] [address] [place] [address], [place] [phone] * (ABNORMAL) COMPREHENSIVE METABOLIC PANEL (04/07/2024 11:30 AM [facility] [employer] [employer]) Only the most recent of2 resultswithin the time period is included. GLUCOSE 99 70 - 99 MG/DL 04/07/2024 11:57 AM [facility] [employer] [employer] BUN 12 7 - 18 MG/DL 04/07/2024 11:57 AM [facility] [employer] [employer] CREATININE S/P/B 1.00 0.55 - 1.02 MG/DL 04/07/2024 11:[address] [facility] SODIUM S/P/B 138 136 - 145 MMOL/L 04/07/2024 11:[address] [facility] POTASSIUM S/P/B 4.1 3.5 - 5.1 MMOL/L 04/07/2024 11:[address] [facility] CHLORIDE S/P/B 103 100 - 108 MMOL/L 04/07/2024 11:[address] [facility] CO2 29.0 21 - 32 MMOL/L 04/07/2024 11:[address] [facility] CALCIUM S/P/B 9.1 8.5 - 10.1 MG/DL 04/07/2024 11:[address] [facility] BILIRUBIN TOTAL S/P/B 0.6 0.2 - 1.2 MG/DL 04/07/2024 11:[address] [facility] TOTAL PROTEIN S/P/B 7.4 6.4 - 8.2 G/DL 04/07/2024 11:[address] [facility] ALBUMIN S/P/B 4.2 3.4 - 5.0 G/DL 04/07/2024 11:[address] [facility] AST 58(H) 15 - 37 U/L 04/07/2024 11:[address] [facility] ALT 104(H) 14 - 55 U/L 04/07/2024 11:[address] [facility] ALKALINE PHOSPHATASE S/P/B 62 50 - 136 U/L 04/07/2024 11:[address] [facility] ANION GAP 6.0 5 - 15 MMOL/L 04/07/2024 11:[address] [facility] BUN CREATININE RATIO 12.0 6 - 26 04/07/2024 11:[address] [facility] A/G RATIO 1.3 1.0 - 2.0 RATIO 04/07/2024 11:[address] [facility] GFR ESTIMATE 69(L) >90 ML/MIN/1.7 3 M2 04/07/2024 11:[address] [facility] Comment: NOTE: eGFR is not calculated for patients <18 years of age. This is an estimated GFR calculation using the new CKD EPI creatinine equation without race and so does not require a correction factor for race. This estimated GFR should not be used for calculating drug doses. 04/07/2024 11:3 0 AM [facility] [employer] [employer] us Floyd Whyte MD LABORATORY Final R esult [facility] [address] [place] [address], [place] [phone] * (ABNORMAL) CBC W/DIFF AUTOMATED (04/07/2024 11:30 AM [facility] [employer] [employer]) Only the most recent of2 resultswithin the time period is included. WBC 7.67 4.4 - 11.0 x10'3/uL 04/07/2024 12:[address] [facility] RBC 4.68 4.50 - 5.10 x10'6/uL 04/07/2024 12:[address] [facility] HGB 14.4 12.3 - 15.3 G/DL 04/07/2024 12:[address] [facility] HCT 42.5 35.9 - 44.6 % 04/07/2024 12:[address] [facility] MCV 90.8 80.0 - 96.0 FL 04/07/2024 12:[address] [facility] MCH 30.8 25.3 - 30.9 PG 04/07/2024 12:[address] [facility] MCHC 33.9 31.0 - 34.1 G/DL 04/07/2024 12:[address] [facility] RDW 12.1(L) 12.4 - 15.1 % 04/07/2024 12:[address] [facility] PLT 164 151 - 353 x10'3/uL 04/07/2024 12:[address] [facility] MPV 10.4 9.6 - 12.0 FL 04/07/2024 12:[address] [facility] RBC MORPHOLOGY NORMAL 04/07/2024 12:[address] [facility] PLT MORPH. NORMAL 04/07/2024 12:[address] [facility] WBC MORPHOLOGY NORMAL 04/07/2024 12:[address] [facility] LYMPHOCYTES % 5.1(L) 15.8 - 45.0 % 04/07/2024 12:[address] [facility] NEUTROPHILS % 87.8(H) 42.1 - 71.9 % 04/07/2024 12:[address] [facility] MONOCYTES % 5.3(L) 5.7 - 12.5 % 04/07/2024 12:[address] [facility] EOSINOPHILS 0.4 0.0 - 5.6 % 04/07/2024 12:[address] [facility] BASOPHILS 0.4 0.0 - 1.3 % 04/07/2024 12:[address] [facility] ABS. NEUTROPHILS 6.73(H) 1.40 - 6.00 x10'3/uL 04/07/2024 12:[address] [facility] IMMATURE GRANS % 1.0(H) 0.0 - 0.5 % 04/07/2024 12:07 PM [facility] [employer] [employer] ABS. LYMPHOCYTES 0.39(L) 0.80 - 4.70 x10'3/uL 04/07/2024 12:07 PM [facility] [employer] [employer] [facility] 04/07/2024 11:3 0 AM [facility] [employer] Floyd Whyte MD LABORATORY Final R esult Performing Organization Address City/[facility] Co de Phone Number [facility] [address] [place] [address], [place] [phone] * (ABNORMAL) LIPASE (04/07/2024 11:30 AM [facility] [employer]) Only the most recent of2 resultswithin the time period is included. LIPASE 404(H) 16 - 77 UNITS/L 04/07/2024 11:57 AM [facility] [employer] [employer] 04/07/2024 11:3 0 AM [facility] [employer] [employer] Floyd Whyte MD LABORATORY Final R esult Performing Organization Address [facility] Co de Phone Number [facility] [address] [place] [address], [place] [phone] from Last 3 Months Insurance Advance Directives * Full Code (Latest Code Status on File) Date Activated Date Inactivated Comments 10/15/2021 2:10 PM 10/18/2021 10:00 PM Care Teams [employer]ader Relationship Specialty Start Date End Date Koko Eli MD [address] [address] PCP - General FAMILY PRACTICE 09/22/19
--- OUTSIDE RECORDS SUMMARY | 2024-04-12 04:56 | XMS_ITS | Referral Summary ---
Author Organization [address] Address [address] [place] [id number] Care Team Providers Care Eligibility Specialist Name Role Phone Marleni Santos NP Primary Care Provider [phone] Encounters Date Type Department Care Team Description 02/13/2024 1:37 PM FBI SPECIAL AGENT - 02/13/2024 11:59 PM [employer] SPECIAL AGENT Hospital Encounter [address] [address] Transaminitis Discharge Disposition: Discharge to home or self care 02/13/2024 1:40 PM FBI SPECIAL AGENT Lab [facility] Infectious Diseases [address] [facility] [address] [place] [address] 02/13/2024 1:00 PM FBI SPECIAL AGENT Office Visit [facility] Rheumatology [address] [facility] [address] [place] [phone] Susan Campuzano MD Rheumatoid arthritis of multiple sites with negative rheumatoid factor ([facility]) ([facility]) (Primary Dx); Arthralgia of both hands; Inflammatory arthritis; Arthralgia, unspecified joint; Transaminitis from Last 3 Months Allergies Active Allergy Reactions Criticality Noted Date Comments Sumatriptan Swelling High 12/15/2020 Throat swells shut Bupropion Mental status changes Low 05/08/2023 Medications ALPRAZolam (XANAX) 0.5 mg tablet Take 1 tablet (0.5 mg total) by mouth 3 (three) times a day Active butalbital-aceta minophen-caffein e (FIORICET) 50-300-40 mg per capsule Take 1 capsule by mouth every 4 (four) hours as needed Active DULoxetine DR (CYMBALTA) 60 mg capsule Take 90 mg by mouth daily Active cholecalciferol 25 mcg (1,000 unit) tablet Take 1 tablet (1,000 Units total) by mouth daily Active meloxicam (MOBIC) 7.5 mg tablet Take 1 tablet (7.5 mg total) by mouth 2 (two) times a day 3 Active pramipexole (MIRAPEX) 0.5 mg tablet Take 1 tablet (0.5 mg total) by mouth nightly at bedtime. 3 Active MAGNESIUM GLYCINATE ORAL Take 400 mg by mouth daily Active melatonin tablet Take by mouth nightly Active omeprazole (PriLOSEC) 20 mg capsule Take 1 capsule (20 mg total) by mouth daily Active folic acid (FOLVITE) 1 mg tabletIndication s:Chronic pain of left ankle,Polyarthri tis Take 1 tablet (1 mg total) by mouth daily 30 tablet 5 3 Active methotrexate 2.5 mg tabletIndication s:autoimmune disease Take 10 tablets (25 mg total) by mouth every 7 days Take 8 tablets (20 mg) once weekly for the next 2 weeks, then increase to 10 tablets (25 mg) once weekly thereafter. 90 tablet 2 3 Active amitriptyline (ELAVIL) 25 mg tablet Take 1 tablet (25 mg total) by mouth nightly at bedtime Active diclofenac sodium (VOLTAREN) 1 % gelIndications:A rthralgia of both hands Apply 4 g topically 3 (three) times a day Apply to arthritis joints PRN 20 g 2 4 Active topiramate (TOPAMAX) 25 mg tablet Take 1 tablet (25 mg total) by mouth 2 (two) times a day 4 Active phentermine 15 mg capsule Take 1 capsule (15 mg total) by mouth daily 4 Active gabapentin (NEURONTIN) 300 mg capsuleIndicatio ns:Neuropathic Pain Take 1 capsule (300 mg total) by mouth daily after dinner 30 capsule 4 Active hydroxychloroqui ne (PLAQUENIL) 200 mg tabletIndication s:Arthralgia of both hands,Inflammato ry arthritis,Arthra lgia, unspecified joint,Rheumatoid arthritis with positive rheumatoid factor, involving unspecified site (HCC) TAKE 1 TABLET(200 MG) BY MOUTH TWICE DAILY 120 tablet 1 4 Active Active Problems Problem Noted Date Diagnosed Date Arthralgia 05/08/2023 Inflammatory arthritis 02/16/2023 Dysfunction of both eustachian tubes 12/15/2020 Acute recurrent maxillary sinusitis 12/15/2020 Social History Tobacco Use Types Packs/Day Years Used Date Smoking Tobacco: Former Cigarettes Q uit: 09/2022 Smokeless Tobacco: Never Tobacco Cessation:Counseling Given: Not Answered Social Connection and Isolation Panel [NHANES] A nswer Date Recorded In a typical week, how many times do you talk on the phone with family, friends, or neighbors? Once a week 09/04/2023 How often do you get together with friends or re latives? Once a week 09/04/2023 How often do you attend baptist or restoration serv ices? Never 09/04/2023 Do you belong to any clubs o r organizations such as baptist groups, unions, fraternal or athletic groups, or school groups? No 09/04/2023 How often do you attend meet ings of the clubs or organizations you belong to? Not asked 09/04/2023 Are you , , di vorced, , never , or living with a partner? 09/04/2023 Overall Financial Resource Strain (CARDIA) Answe r Date Recorded How hard is it for you to pa y for the very basics like food, housing, medical care, and heating? Not hard at all 09/04/2023 PHQ-2 Answer Date Recorded Patient Health Questionnaire-2 Score 1 09/04/2023 [facility] - Occupational Stress Questionnaire Answer Date Recorded Do you feel stress - tense, restless, nervous, or anxious, or unable to sleep at night because your mind is troubled all the time - these days? Only a little 09/04/2023 Exercise Vital Sign Answer Date Recorde d On average, how many days pe r week do you engage in moderate to strenuous exercise (like a brisk walk)? 0 days 09/04/2023 On average, how many minutes do you engage in exercise at this level? 10 min 09/04/2023 Hunger Vital Sign Answer Date Recorded Within the past 12 months, y ou worried that your food would run out before you got the money to buy more. Never true 09/04/19 24 Within the past 12 months, t he food you bought just didn't last and you didn't have money to get more. Never true 09/04/2023 PRAPARE - Transportation Answer Date Re corded In the past 12 months, has l ack of transportation kept you from medical appointments or from getting medications? No 08/18 In the past 12 months, has l ack of transportation kept you from meetings, work, or from getting things needed for daily living? No 09/04/2023 Housing Stability Vital Sign Answer Olaf e Recorded In the last 12 months, was t here a time when you were not able to pay the mortgage or rent on time? No 05/08/2023 In the last 12 months, how many places have you lived? 1 05/08/2023 In the last 12 months, was t here a time when you did not have a steady place to sleep or slept in a nursing home (including now)? No 05/08/2023 Comments Unknown Sex and Gender Information Value Date Recorded Sex Assigned at Not on file Legal Sex Female 12:30 AM FBI SPECIAL AGENT Gender Identity Female 02/15/2023 7:16 PM FBI SPECIAL AGENT Sexual Orientation Straight 02/15/2023 7: 16 PM FBI SPECIAL AGENT Last Filed Vital Signs Vital Sign Reading Time Taken Comments Blood Pressure 107/74 02/13/2024 12:42 PM FBI SPECIAL AGENT Pulse 84 02/13/2024 12:42 PM FBI SPECIAL AGENT Temperature 36.2 ??C (97.2 ??F) 09/04/2023 11:22 AM C DT Respiratory Rate - - Oxygen Saturation 98% 02/13/2024 12:42 PM FBI SPECIAL AGENT Inhaled Oxygen Concentration - - Weight 101.2 kg (223 lb) 02/13/2024 12:42 PM FBI SPECIAL AGENT Height 160 cm (5' 3 ) 02/13/2024 12:42 PM FBI SPECIAL AGENT Body Mass Index 39.5 02/13/2024 12:42 PM FBI SPECIAL AGENT Plan of Treatment Not on file Procedures Procedure Name Priority Date/Time Associated Diagnosis Comments EGFR Routine 02/13/2024 1:42 PM FBI SPECIAL AGENT Transaminitis COMPREHENSIVE METABOLIC PANEL Routine 02/13/2024 1:42 PM FBI SPECIAL AGENT Transaminitis HEPATITIS C ANTIBODY Routine 01/14/2023 7:09 AM CDT Polyarthritis from Last 3 Months or Most Recently Relevant to Health Maintenance Results * eGFR (02/13/2024 1:42 PM FBI SPECIAL AGENT) eGFR >90 >=60 mL/min/1. 73 m2 Comment: Interpretive Data Reference Interval Normal ?>/= 90 mL/min/1.73m2 Mildly decreased* ? 60 - 89 mL/min/1.73m2 Mildly to moderately decreased ?45 - 59 mL/min/1.73m2 Moderately to severely decreased ??30 - 44 mL/min/1.73m2 Severely decreased ?15 - 29 mL/min/1.73m2 Kidney Failure ?< 15 ??mL/min/1.73m2 *Relative to young adult level Estimated glomerular filtration rate is determined by the 2020 CKD-EPI equation recommended by the National Kidney Foundation (A Unifying Approach to GFR Estimation: Recommendations of the NKF-ASK Task Force on Reassessing the Inclusion of Race in Diagnosing Kidney Disease, JASN 2020). The CKD-EPI equation should not be used for patients with unstable renal function and has not been validated in children and those over 70. Current interpretive data was last reviewed 2021. Blood 02/13/2024 1:42 PM FBI SPECIAL AGENT 02/13/2024 7:45 PM FBI SPECIAL AGENT us Susan Campuzano MD LAB BLOOD ORDERABLES Final Result [facility] [address] Department [place] [address] * (ABNORMAL) Comprehensive metabolic panel (02/13/2024 1:42 PM FBI SPECIAL AGENT) Sodium 140 135 - 145 mmol/L Potassium, pl 5.2(H) 3.3 - 4.9 mmol/L [facility] Comment:Hemolysis present. R esults may be affected. Chloride 107 97 - 110 mmol/L [facility] CO2 20(L) 22 - 32 mmol/L [facility] Anion gap 13 2 - 15 mmol/L [facility] BUN 16 6 - 25 mg/dL [facility] Creatinine 0.77 0.60 - 1.10 mg/dL [facility] Glucose 92 70 - 199 mg/dL [facility] Comment: Interpretive Data Fasting glucose >/= 126 mg/dl is diagnostic for diabetes. ?? Fasting is defined as no caloric intake for at least 8 hours. Fasting glucose between 100 mg/dl to 125 mg/dl is diagnostic of prediabetes. In a patient with classic symptoms of hyperglycemia or hyperglycemic crisis, a random glucose >/= 200 mg/dl is diagnostic for diabetes. In the absence of unequivocal hyperglycemia, results should be confirmed by repeat testing. The classification and Diagnosis of Diabetes Diabetes Care 202; 46: S19-S40. Current interpretive data was last revised 2022. Calcium 10.0 8.5 - 10.3 mg/dL [facility] Bilirubin, total 0.5 0.1 - 1.2 mg/dL [facility] Protein, pl 7.7 6.5 - 8.5 g/dL [facility] Albumin 4.8 3.5 - 5.0 g/dL [facility] Alk phos 58 40 - 130 Units/L [facility] ALT 47(H) 7 - 45 Units/L [facility] AST 52(H) 10 - 45 Units/L [facility] Comment:Hemolysis present. R esults may be affected. Blood 02/13/2024 1:42 PM FBI SPECIAL AGENT 02/13/2024 7:38 PM FBI SPECIAL AGENT us Susan Campuzano MD LAB BLOOD ORDERABLES Final Result [facility] [address] [place] [address] * Hepatitis C antibody Blood (01/14/2023 7:09 AM CDT) Hep C Ab Nonreactive Nonreactive [facility] Comment: Interpretive Data Nonreactive: Antibodies to HCV not detected. Does NOT exclude the possibility of recent exposure to HCV. Equivocal: Equivocal for HCV antibodies. Supplemental molecular testing will be automatically performed to determine infection status in accordance with current CDC screening recommendations. ?? Reactive: Positive for HCV antibodies. ??This may represent current or past HCV infection. Supplemental molecular testing will be automatically performed to determine ??current infection status in accordance with current CDC screening recommendations. Interpretive data was last revised on 2019. Blood 01/14/2023 7:09 AM CDT 01/14/2023 10:17 AM CDT us Jose Strong RN LAB MICROBIOLOGY - GENERAL ORD ERABLES Final Result [facility] [address] [facility] Department [place] [address] from Last 3 Months or Most Recently Relevant to Health Maintenance Insurance [facility] [employer] [place] Care Teams Eligibility Specialist Relationship Specialty Start Date End Date Marleni Santos NP [address] [place] [address] PCP - General Nurse Practitioner 12/08/20
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
== END 2024-04-11 15:02 | disposition home or self-care (01) ==
PROVIDERS: Registered Nurse; Emergency Provider Emergency Medicine; PCP Family Medicine
DX: A08.4 Viral intestinal infection, unspecified (principal); J10.1 Influenza due to other identified influenza virus with other respiratory manifestations; Z87.891 Personal history of nicotine dependence; Z20.822 Contact with and (suspected) exposure to COVID-19
CPT/HCPCS: 36415; 71046; 74177; 80053; 81001; 83690; 84484; 85025; 85610; 85730; 87637; 93005; 96361; 96374; 96375; 96376; 99284; J1171; J2405; J7030; Q9967

== ENCOUNTER 2024-07-16 16:10 | Outpatient (CLI) | payer BC, SELFPAY ==
[2024-07-16 16:28] LABS: Basophils Percent Auto 0.7 % (0.2-1.2); Eosinophils Percent Auto 0.7 % (0-4.4); Hematocrit 43.1 % (37.0-47.0); Immature Granulocyte Absolute 0.08 K/mm3 (0.00-0.031); Immature Granulocyte Percent A 1.3 % (0-0.5); Lymphocytes Absolute Auto 1.63 K/mm3 (0.9-3.2); Lymphocytes Percent Auto 27.1 % (18.3-44.2); Mean Corpuscular HGB Conc 32.5 g/dl (32-36); Mean Corpuscular Hemoglobin 30.4 pg (26-34); Mean Corpuscular Volume 93.5 fl (80-100); Mean Platelet Volume 9.5 fl (7.4-10.4); Monocytes Absolute Auto 0.4 K/mm3 (0.1-0.6); Monocytes Percent Auto 7.3 % (2.6-8.5); Neutrophils Absolute Auto 3.8 K/mm3 (1.3-6.7); Neutrophils Percent Auto 62.9 % (45.5-73.1); Platelet Count Result 181 k/mm3 (150-375); Red Blood Count 4.61 M/mm3 (4.2-5.4)
[2024-07-16 16:54] LABS: Alanine Aminotransferase 55 U/L (6-35); Albumin Level 4.7 g/dL (3.5-5.1); Alkaline Phosphatase 59 U/L (38-126); Aspartate Amino Transferase 39 U/L (14-36); Blood Urea Nitrogen 19 mg/dL (7-17); Calcium 9.4 mg/dL (8.4-10.2); Carbon Dioxide 26 mmol/L (22-30); Chloride 104 mmol/L (98-107)
[2024-07-16 16:55] LABS: Anion Gap 9 mmol/L (4-12); Bilirubin,Total 0.5 mg/dL (0.2-1.3); Estimated Glomerular Filt Rate > 60; Glucose 84 mg/dL (65-110); Potassium 3.7 mmol/L (3.4-5.0); Sodium 139 mmol/L (137-145)
[2024-07-16 17:20] LABS: Thyroid Stimulating Hormone 0.921 uIU/mL (0.465-4.680)
== END 2024-07-16 16:11 | disposition home or self-care (01) ==
LOC: ANHLAB 16:12
PROVIDERS: PCP Family Medicine; Visit Provider Physician Assistant Medical
DX: R56.9 Unspecified convulsions (principal); G44.52 New daily persistent headache (NDPH)
CPT/HCPCS: 36415; 80053; 82607; 84443; 85025

== ENCOUNTER 2024-08-09 08:29 | Outpatient (CLI) | payer BC, SELFPAY ==
--- OUTSIDE RECORDS SUMMARY | 2024-08-09 08:33 | XMS_ITS | Patient Health Record ---
Author Organization [facility] [employer] [place] ([address]) Address [address] [place] [address] Care Team Providers Care White Mixing Operator Name Role Phone Alcira YANEZ, Koko Primary Care Provider UnavailDr. Henrry Jeffery Unavailable [phone] [employer], Provider Unavailable Unavailab le Allergies Allergen (clinical drug ingredient) Drug/Non Drug Allergy documented on EMR Reaction Allergy Type Onset Date Status sumatriptan Imitrex anaphylaxis Drug Allergy Act filemon Reason For Referral No Information Medications Medication SIG (Take, Route, Frequency, Duration) Notes Start Date End Date Status Cholestyramine 4 GM/DOSE for 30 Active Omeprazole 40 MG TAKE 1 CAPSULE BY MOUTH DAILY for 30 Active Pramipexole Dihydrochloride 0.5 MG 1 tab(s) orally at bedtime for 30 days 11/24/2022 Active Dicyclomine HCl 20 MG 1 tab(s) orally 4 times a day for 30 day(s) 09/01/2022 Active Nabumetone 750 MG TAKE 1 TABLET BY MOUTH TWICE DAILY for 30 M7660,Unavailable Active Meloxicam 7.5 MG TAKE 1 TABLET BY MOUTH TWICE DAILY for 30 M5416,Unavailable Active Gabapentin 600 MG 1 tab(s) orally at bedtime for 30 days Active CYMBALTA 60 mg 1 cap(s) orally once a day for 30 day(s) Active MELOXICAM 7.5 mg TAKE 1 TABLET BY MOUTH TWICE DAILY for 30 M5416,Unavailable Active MELATONIN 10 mg 1 cap(s) orally once a day (at bedtime) Active TIZANIDINE 4 mg 2 tab(s) orally every 8 hours for 30 day(s) Active CHOLESTYRAMINE 4 g/9 g for 30 Active PRAMIPEXOLE 0.5 mg 1 tab(s) orally at bedtime for 30 days 11/24/2022 Active DICYCLOMINE 20 mg 1 tab(s) orally 4 times a day for 30 day(s) 09/01/2022 Active NABUMETONE 750 mg TAKE 1 TABLET BY MOUTH TWICE DAILY for 30 M7660,Unavailable Active OMEPRAZOLE 40 mg TAKE 1 CAPSULE BY MOUTH DAILY for 30 Active Cymbalta 60 MG 1 cap(s) orally once a day for 30 day(s) Active CBDFX 25 MG WITH MCT OIL ORAL CAPSULE *Please review for potential replacement for e-prescription and drug interaction check* Active GABAPENTIN 600 mg 1 tab(s) orally at bedtime for 30 days Active tiZANidine HCl 4 MG 2 tab(s) orally every 8 hours for 30 day(s) Active Melatonin 10 MG 1 cap(s) orally once a day (at bedtime) Active Social History Tobacco Use: Social History Observation Description Date Details (start date - stop date) Current Smoker NA - NA Smoking Smart Form: Question Answer Notes Are you a: current smoker How many cigarettes a day do you smoke? 6-10 Additional Findings:Tobacco User Trivial cigarette smoker (less than one cigarette/day) Additional Findings:Tobacco Non-User Ex-pipe smo ker Problems Problem Type SNOMED Code ICD Code Onset Dates Problem Status W/U Status Risk Notes Problem Vitamin D deficiency (46043288) Vitamin D deficiency, unspecified (E55.9) Active confirmed Problem Anxiety disorder (679548092) Anxiety disorder, unspecified (F41.9) Active confirmed Problem Chronic migraine without aura, non-refractory (disorder) (707860356817565) Migraine without aura, not intractable, without status migrainosus (G43.009) Active confirmed Problem Migraine with aura (6108716) Migraine with aura, not intractable, without status migrainosus (G43.109) Active confirmed Problem Chronic migraine without aura, non-intractable (121919378030985) Chronic migraine without aura, not intractable, without status migrainosus (G43.709) Active confirmed Problem Sleep apnea (19414915) Sleep apnea, unspecified (G47.30) Active confirmed Problem Obstructive sleep apnea syndrome (disorder) (76678980) Obstructive sleep apnea (adult) (pediatric) (G47.33) Active confirmed Problem Periodic limb movement disorder (304789804) Periodic limb movement disorder (G47.61) Active confirmed Problem Carpal tunnel syndrome (89587636) Carpal tunnel syndrome, right upper limb (G56.01) Active confirmed Problem Polyarthritis (132514466) Polyarthritis, unspecified (M13.0) Active confirmed Problem Fibromyalgia (543283929) Fibromyalgia (M79.7) Active confirmed Problem Snoring (86846885) Snoring (R06.83) Active confirmed Problem Dizziness and giddiness (764277962) Dizziness and giddiness (R42) Active confirmed Problem Paresthesia (finding) (69440207) Paresthesia of skin (R20.2) Active confirmed Problem Carpal tunnel syndrome (46628054) Carpal tunnel syndrome, bilateral upper limbs (G56.03) Active confirmed Problem Depression (487634135) Depression, unspecified (F32.A) Active confirmed Problem Obesity (660011772) Obesity, unspecified (E66.9) Active confirmed Problem Sleep disorder (77864611) Other sleep disorders (G47.8) Active confirmed Problem Hypersomnia (06068052) Hypersomnia, unspecified (G47.10) Active confirmed Problem Chronic fatigue syndrome (disorder) (83076517) Chronic fatigue, unspecified (R53.82) Active confirmed Encounters Encounter Location Date Provider Diagnosis [address] [address] 09/02/2023 Provider Christy Periodic limb movement disorder G47.61 Assessments Encounter Date Diagnosis (ICD Code) Assessment Notes Treatment Notes Treatment Clinical Notes Section Notes 09/02/2023 Periodic limb movement disorder (ICD-10 - G47.61) Plan Of Treatment Pending Test Test Name Order Date MRI : Brain (with and without gadolinium ) 09/01/2022 Sleep Study WatchPAT 300 (Zoll-Rayn) 0 09/01/2022 EMG (Electromyography) - 2 (two) Extremi ties 09/01/2022 Insurance Providers Payer Name Payer Address Payer Phone Subscriber Number Group Number Insured Name Patient Relationship to Insured Coverage Start Date Coverage End Date [employer] [place] [address] [place] [address] [phone] [id number] Kyle Akers Spouse - patient is the spouse of the insured Medical (General) History Medical History History ICD Code Migraine Depression, unspecified F32.A Fibromyalgia M79.7 Anxiety disorder, unspecified F41.9 Lumbar DDD History of obesity Endometriosis R ovarian cyst Surgical History Surgery Date(Month/Year) Hysterectomy/ L Oophorectomy 2010 Cholecystectomy 2021 Hospitalization History Reason Date(Month/Year) Sepsis 09/2022
--- OUTSIDE RECORDS SUMMARY | 2024-08-09 08:33 | XMS_ITS | Clinical Summary ---
Author Organization [address] Address [address] [place] [address] Care Team Providers Care Rig Manager Name Role Phone Marleni Santos NP Primary Care Provider [phone] Allergies Active Allergy Reactions Criticality Noted Date Comments Sumatriptan Swelling High 12/15/2020 Throat swells shut Bupropion Mental status changes Low 05/08/2023 Medications ALPRAZolam (XANAX) 0.5 mg tablet Take 1 tablet (0.5 mg total) by mouth 3 (three) times a day Active butalbital-acet aminophen-caffe ine (FIORICET) 50-300-40 mg per capsule Take 1 [...] by mouth 2 (two) times a day 01/05/20 Active pramipexole (MIRAPEX) 0.5 mg tablet Take 1 tablet (0.5 mg total) by mouth nightly at bedtime. 12/20/19 23 Active MAGNESIUM GLYCINATE ORAL Take 400 mg by mouth daily Active melatonin tablet Take by mouth nightly Active omeprazole (PriLOSEC) 20 mg capsule Take 1 capsule (20 mg total) by mouth daily Active folic acid (FOLVITE) 1 mg tabletIndicatio ns:Chronic pain of left ankle,Polyarthr itis Take 1 tablet (1 mg total) by mouth daily 30 tablet 5 01/18/20 23 Active amitriptyline (ELAVIL) 25 mg tablet Take 1 tablet (25 mg total) by mouth nightly at bedtime Active diclofenac sodium (VOLTAREN) 1 % gelIndications: Arthralgia of both hands Apply 4 g topically 3 (three) times a day Apply to arthritis joints PRN 20 g 2 09/04/19 24 Active topiramate (TOPAMAX) 25 mg tablet Take 1 tablet (25 mg total) by mouth 2 (two) times a day 01/15/20 24 Active phentermine 15 mg capsule Take 1 capsule (15 mg total) by mouth daily 01/15/20 24 Active hydroxychloroqu ine (PLAQUENIL) 200 mg tabletIndicatio ns:Arthralgia of both hands,Inflammat ory arthritis,Arthr algia, unspecified joint,Rheumatoi d arthritis with positive rheumatoid factor, involving unspecified site (HCC) Take 1 tablet (200 mg total) by mouth 2 (two) times a day 180 tablet 08/03/19 25 Active hydroxychloroqu ine (PLAQUENIL) 200 mg tabletIndicatio ns:Arthralgia of both hands,Inflammat ory arthritis,Arthr algia, unspecified joint,Rheumatoi d arthritis with positive rheumatoid factor, involving unspecified site (HCC) TAKE 1 TABLET(200 MG) BY MOUTH TWICE DAILY 120 tablet 1 02/26/20 24 025 Discontinued Active Problems Problem Noted Date Diagnosed Date Arthralgia 05/08/2023 Inflammatory arthritis 02/16/2023 Dysfunction of both eustachian tubes 12/15/2020 Acute recurrent maxillary sinusitis 12/15/2020 Encounters Date Type Department Care Team Description 07/09/2024 8:30 AM CDT Office Visit [facility] Rheumatology [address] [place] [address] [address] [place] [address] Susan Campuzano MD Inflammatory arthritis (Primary Dx); Transaminitis; Chronic fatigue; High risk medication use from Last 3 Months Surgical History Surgery Date Site/Laterality Comments HYSTERECTOMY 03/20/2010 - 03/19/2011 TUBAL LIGATION 03/20/1995 - 03/19/1996 GALLBLADDER SURGERY 03/20/2021 - 03/19/2022 CHOLECYSTECTOMY 2021 Medical History Medical History Date Comments Anxiety 2010 Depression 2010 Sinusitis Headache Insomnia Fibromyalgia Stomach ulcer Migraine [...] Tobacco: Never Tobacco Cessation:Counseling Given: Not Answered [facility] Utilities Answer Date Recorded In the past 12 months has [employer] electric, gas, oil, or water company threatened to shut off services in your home? No 07/09/2024 Social Connection and Isolation Panel [NHANES] A nswer Date Recorded In a typical week, how many times do you talk on the phone with family, friends, or neighbors? Once a week 07/09/2024 How often do you get together with friends or re latives? Once a week 07/09/2024 How often do you attend restoration or tenriism serv ices? Never 07/09/2024 Do you belong to any clubs o r organizations such as restoration groups, unions, fraternal or athletic groups, or school groups? No 07/09/2024 How often do you attend meet ings of the clubs or organizations you belong to? Not asked 07/09/2024 Are you , , di vorced, , never , or living with a partner? 07/09/2024 Overall Financial Resource Strain (CARDIA) Answe r Date Recorded How hard is it for you to pa y for the very basics like food, housing, medical care, and heating? Not hard at all 07/09/2024 PHQ-2 Answer Date Recorded Patient Health Questionnaire-2 Score 1 07/09/2024 [facility] [place] of Occupat ional Health - Occupational Stress Questionnaire Answer Date Recorded Do you feel stress - tense, restless, nervous, or anxious, or unable to sleep at night because your mind is troubled all the time - these days? Rather much 07/09/2024 Exercise Vital Sign Answer Date Recorde d On average, how many days pe r week do you engage in moderate to strenuous exercise (like a brisk walk)? 2 days 07/09/2024 On average, how many minutes do you engage in exercise at this level? 10 min 07/09/2024 Hunger Vital Sign Answer Date Recorded Within the past 12 months, y ou worried that your food would run out before you got the money to buy more. Never true 07/10/19 25 Within the past 12 months, t he food you bought just didn't last and you didn't have money to get more. Never true 07/09/2024 PRAPARE - Transportation Answer Date Re corded In the past 12 months, has l ack of transportation kept you from medical appointments or from getting medications? No 06/19 In the past 12 months, has l ack of transportation kept you from meetings, work, or from getting things needed for daily living? No 07/09/2024 Housing Stability Vital Sign Answer Olaf e [...] place to sleep or slept in a long-term (including now)? No 05/08/2023 Comments Unknown Sex and Gender Information Value Date Recorded Sex Assigned at Not on file Legal Sex Female 12:30 AM MUTUEL CASHIER Gender Identity Female 02/15/2023 7:16 PM MUTUEL CASHIER Sexual Orientation Straight 02/15/2023 7: 16 PM MUTUEL CASHIER Obstetrics History Last Filed Vital Signs Vital Sign Reading Time Taken Comments Blood Pressure 110/79 07/09/2024 8:25 AM CDT Pulse 80 07/09/2024 8:25 AM CDT Temperature 36.2 C (97.2 F) 09/04/2023 11:22 AM CDT Respiratory Rate - - Oxygen Saturation 97% 07/09/2024 8:25 AM CDT Inhaled Oxygen Concentration - - Weight 97.9 kg (215 lb 12.8 oz) 07/09/2024 8:25 AM CDT Height 160 cm (5' 3 ) 07/09/2024 8:25 AM CDT Body Mass Index 38.23 07/09/2024 8:25 AM CDT Plan of Treatment Health Maintenance Due Date Last Done Comments Breast Cancer Screening-Mammogram 1975 Colon Cancer Screening-Colonoscopy 1975 DTaP/Tdap/Td Vaccine (1 - Tdap) 1984 Regular Well Visit/Exam 18-64 09/13/1991 Pneumococcal vaccine <65 (1 of 2 - PCV) 1992 Zoster Vaccine (1 of 2) 1992 Influenza Vaccine (Season Ended) 2024 Depression Screening 07/09/2025 07/09/2024, 09/04/2023, 05/08/2023, Additional history exists Hepatitis B Screening Completed 01/14/2023 Hepatitis C Screening Completed 01/14/2023 Procedures Procedure Name Priority Date/Time Associated Diagnosis Comments HEPATITIS C ANTIBODY Routine 01/14/2023 7:09 AM CDT Polyarthritis from Last 3 Months or Most Recently Relevant to Health Maintenance Results * Hepatitis C antibody Blood (01/14/2023 7:09 AM CDT) Hep C Ab Nonreactive Nonreactive [facility] Comment: Interpretive Data Nonreactive: Antibodies to HCV not detected. Does NOT exclude the possibility of recent exposure to HCV. Equivocal: Equivocal for HCV antibodies. Supplemental molecular testing will be automatically performed to determine infection status in accordance with current CDC screening recommendations. Reactive: Positive for HCV antibodies. This may represent current or past HCV infection. Supplemental molecular testing will be automatically performed to determine current infection status in accordance with current CDC screening recommendations. Interpretive data was last revised on 2019. Blood 01/14/2023 7:09 AM CDT 01/14/2023 10:17 AM CDT us Jose Strong NP LAB MICROBIOLOGY - GENERAL ORD ERABLES Final Result [facility] [address] [place] [address] [place] [address] from Last 3 Months or Most Recently Relevant to Health Maintenance Insurance [place] Care Teams Rig Manager Relationship Specialty Start Date End Date Marleni Santos NP PCP - General Nurse Practitioner 12/08/20
--- OUTSIDE RECORDS SUMMARY | 2024-08-09 08:33 | XMS_ITS | Referral Summary ---
Author Organization [address] Address [address] [place] [address] Care Team Providers Care Manifold Operator Name Role Phone Marleni Santos NP Primary Care Provider [phone] Encounters Date Type Department Care Team Description 07/09/2024 8:30 AM CDT Office Visit [facility] Rheumatology [address] [place] [address] [address] [place] [address] Susan Campuzano MD Inflammatory arthritis (Primary Dx); Transaminitis; Chronic fatigue; High risk medication use from Last 3 Months Allergies Active Allergy [...] Tobacco: Never Tobacco Cessation:Counseling Given: Not Answered [facility] Utilities Answer Date Recorded In the past 12 months has th e electric, gas, oil, or water company threatened [...] week 07/09/2024 How often do you attend oriental orthodox or jehovah's witness serv ices? Never 07/09/2024 Do you belong to any clubs o r organizations such as oriental orthodox groups, unions, fraternal or athletic groups, or [...] Recorded Patient Health Questionnaire-2 Score 1 07/09/2024 [facility] of Occupat ional Health - Occupational Stress [...] place to sleep or slept in a halfway (including now)? No 05/08/2023 Comments Unknown Sex and Gender Information Value Date Recorded Sex Assigned at Not on file Legal Sex Female 12:30 AM GLASS FORMING CREW MEMBER Gender Identity Female 02/15/2023 7:16 PM GLASS FORMING CREW MEMBER Sexual Orientation Straight 02/15/2023 7: 16 PM GLASS FORMING CREW MEMBER Last Filed Vital Signs Vital Sign Reading [...] 07/09/2024 8:25 AM CDT Plan of Treatment Not on file Procedures [...] CDT 01/14/2023 10:17 AM CDT Jose Strong NP LAB MICROBIOLOGY - GENERAL ORD ERABLES Final Result [facility] [address] [facility] Department of Laboratories [place], [place] [id number] from Last 3 Months or Most Recently Relevant to Health Maintenance Insurance [employer] MD [employer] MD * Guarantor: Eda Akers Account Type Relation to Patient Date of Phone Billing Address Personal/Family Self [address] [place], [place] [id number] Care Teams Manifold Operator Relationship Specialty Start Date End Date Marleni Santso NP PCP - General Nurse Practitioner 12/08/20
--- OUTSIDE RECORDS SUMMARY | 2024-08-09 08:33 | XMS_ITS ---
Author Organization [facility] [employer] [place] ([address]) Address [address] [place] [address] Care Team Providers Care Bolt Maker Name Role Phone Alcira YANEZ, Koko Primary Care Provider UnavailDr. Henrry Jeffery Unavailable [phone] ZZ-Migration, Provider Unavailable Unavailab le Allergies Allergen (clinical drug ingredient) Drug/Non Drug Allergy documented on EMR Reaction Allergy Type Onset Date Status sumatriptan Imitrex anaphylaxis Drug Allergy Act filemon REASON FOR VISIT [facility] To [facility] Conversion Encounter Medications Medication SIG (Take, Route, Frequency, Duration) Notes Start Date End Date Status Pramipexole Dihydrochloride 0.5 MG 1 tab(s) orally at bedtime for 30 days 11/24/2022 Active Gabapentin 600 MG 1 tab(s) orally at bedtime for 30 days Active CBDFX 25 MG WITH MCT OIL ORAL CAPSULE *Please review for potential replacement for e-prescription and drug interaction check* Active tiZANidine HCl 4 MG 2 tab(s) orally every 8 hours for 30 day(s) Active Melatonin 10 MG 1 cap(s) orally once a day (at bedtime) Active Cholestyramine 4 GM/DOSE for 30 Active Omeprazole 40 MG TAKE 1 CAPSULE BY MOUTH DAILY for 30 Active Dicyclomine HCl 20 MG 1 tab(s) orally 4 times a day for 30 day(s) 09/01/2022 Active Nabumetone 750 MG TAKE 1 TABLET BY MOUTH TWICE DAILY for 30 M7660,Unavailable Active Meloxicam 7.5 MG TAKE 1 TABLET BY MOUTH TWICE DAILY for 30 M5416,Unavailable Active Cymbalta 60 MG 1 cap(s) orally once a day for 30 day(s) Active Encounters Encounter Location Date Provider Diagnosis [address] [address] 09/02/2023 Provider Christy Periodic limb movement disorder G47.61 Assessments Encounter Date Diagnosis (ICD Code) Assessment Notes Treatment Notes Treatment Clinical Notes Section Notes 09/02/2023 Periodic limb movement disorder (ICD-10 - G47.61) Plan Of Treatment Medication Medication Name Sig Start Date Stop Date Notes Pramipexole Dihydrochloride 0.5 MG 1 tab(s) orally at bedtime for 30 days 11/24/2022 Gabapentin 600 MG 1 tab(s) orally at bedtime for 30 days Progress Notes * Eda AKERSDOB:1975 (48 yo F)Acc No.[id number]:09/02/2023 Patient: Barbara Eda CESPEDES Provider: Sabina Caro :1975 A ge:47 Y S ex:Female Date:09/02/2023 Address:[address] [place], [place] [id number] Pcp:Koko Eli MD Subjective: * Chief Complaints: * 1 . [facility] To [facility] Conversion Encounter. * Medical History: * [...] * Procedure Codes: * Electronic signature of Bar CADE-Migration on 08/09/2024 at 08:32 AM CDT Sign off status: Pending * Provider: Sabina anthony Migration Date: 09/02/2023 Generated for Ofe ng/Berny/Rivas on: 08/09/2024 08:32 AM CDT
--- NOTE | 2024-08-11 17:01 | P.NEURO_ITS ---
Neurology EEG Report General Information Date of Study: 08/09/24 TEST Electroencephalogram EEG DESCRIPTION During wakefulness the background activity consists of posterior dominant alpha rhythm at 8 hertz with an amplitude of 25-50 microvolts which appears very well- formed and reactive to eye opening. Anteriorly low amplitude mixed frequency activity was seen. There is a moderate anteroposterior gradient. Hyperventilation not performed. Independent fairly defined sharp wave transients were seen over left mid temporal area and right mid and posterior temporal areas. At times focal slowing intermixed with sharp wave activity was noted over the left temporal area. During drowsiness attenuation of background activity and diffuse theta activity were noted however patient did not progress to stage 2 sleep. Photic stimulation was performed during which no significant abnormal background changes were seen. IMPRESSION This is an abnormal EEG due to focal sharp transients seen arising from both temporal areas independently. These are considered nonspecific focal interictal abnormality but raise possibility of seizure disorder of focal cortical origin. At times focal slowing was also noted over the left temporal area which may raise possibility of underlying structural lesion. Clinical and radiographic correlation are recommended.
== END 2024-08-09 08:30 | disposition home or self-care (01) ==
LOC: ANHNEURO 08:30
PROVIDERS: PCP Family Medicine; Visit Provider Physician Assistant Medical
DX: R56.9 Unspecified convulsions (principal); R94.01 Abnormal electroencephalogram [EEG]
CPT/HCPCS: 95816

== ENCOUNTER 2024-08-16 10:44 | Outpatient (CLI) | payer BC, SELFPAY ==
--- NOTE | ~2024-08-16 | MR_ITS ---
MRI of the brain Clinical History: Seizures, convulsions Technique: Axial and sagittal T1-weighted images were acquired. These were followed by axial T2-weigh avelina, diffusion weighted, gradient, and FLAIR images. Following intravenous administration of 19 cc Mu ltiHance gadolinium, T1-weighted fat-sat imaging was performed in the axial, coronal, and sagittal pl anes. COMPARISON: 09/30/2022 Findings: No abnormal signal seen in the brain parenchyma. No acute infarct or intracranial hemorrhag e seen. No mass lesion identified. Ventricles and subarachnoid spaces are unremarkable. Orbits are unremarkable. Paranasal sinuses and m astoid air cells are clear. Major intracranial flow voids are intact. Sagittal midline structures are intact. No distinct evidence for mesial temporal sclerosis. No abnormal postcontrast enhancement identified. IMPRESSION: Normal exam. Reviewed, dictated and finalized at location . IMPRESSION: Normal exam.
--- OUTSIDE RECORDS SUMMARY | 2024-08-16 10:58 | XMS_ITS ---
Author Organization [facility] [employer] [place] ([address]) Address [address] [place] [address] Care Team Providers Care Pay Per Click Strategist Name Role Phone Alcira YANEZ, Koko Primary Care Provider UnavailDr. Henrry Jeffery Unavailable [phone] ZZ-Migration, Provider Unavailable Unavailab le Allergies Allergen (clinical drug ingredient) Drug/Non Drug Allergy documented on EMR Reaction Allergy Type Onset Date Status sumatriptan Imitrex anaphylaxis Drug Allergy Act filemon REASON FOR VISIT [facility] To [facility] Conversion Encounter Medications Medication SIG (Take, [...] Active Encounters Encounter Location Date Provider Diagnosis [address] [address] 09/02/2023 Provider Christy Periodic limb movement disorder [...] Notes * Eda AKERSDOB:1975 (48 yo F)Acc No.[id number]:09/02/2023 Patient: Barbara Eda CESPEDES Provider: Sabina Caro :1975 A ge:47 Y S ex:Female Date:09/02/2023 Address:[address] [place], [place] [phone] Pcp:Koko Eli MD Subjective: * Chief Complaints: * 1 . [facility] To [facility] Conversion Encounter. * Medical History: * [...] * Electronic signature of Bar CADE-Migration on 08/16/2024 at 10:58 AM CDT Sign off status: Pending * Provider: Sabina anthony Migration Date: 09/02/2023 Generated for Ofe ng/Berny/Rivas on: 08/16/2024 10:58 AM CDT
--- OUTSIDE RECORDS SUMMARY | 2024-08-16 10:59 | XMS_ITS | Patient Health Record ---
Author Organization [facility] [place] ([address]) Address [address] [place] [address] Care Team Providers Care Waiter And Cashier Name Role Phone Alcira YANEZ, Koko Primary Care Provider UnavailDr. Henrry Jeffery Unavailable [phone] ZZ-Migration, Provider Unavailable Unavailab le Allergies Allergen [...] Status Risk Notes Problem Vitamin D deficiency (96996280) Vitamin D deficiency, unspecified (E55.9) Active confirmed Problem Anxiety disorder (821843819) Anxiety disorder, unspecified (F41.9) Active confirmed Problem Chronic migraine without aura, non-refractory (disorder) (155564324737370) Migraine without aura, not intractable, without status migrainosus (G43.009) Active confirmed Problem Migraine with aura (5736001) Migraine with aura, not intractable, without status migrainosus (G43.109) Active confirmed Problem Chronic migraine without aura, non-intractable (930603688271787) Chronic migraine without aura, not intractable, without status migrainosus (G43.709) Active confirmed Problem Sleep apnea (06200879) Sleep apnea, unspecified (G47.30) Active confirmed Problem Obstructive sleep apnea syndrome (disorder) (73737516) Obstructive sleep apnea (adult) (pediatric) (G47.33) Active confirmed Problem Periodic limb movement disorder (132741346) Periodic limb movement disorder (G47.61) Active confirmed Problem Carpal tunnel syndrome (68556631) Carpal tunnel syndrome, right upper limb (G56.01) Active confirmed Problem Polyarthritis (467132030) Polyarthritis, unspecified (M13.0) Active confirmed Problem Fibromyalgia (778453963) Fibromyalgia (M79.7) Active confirmed Problem Snoring (30346220) Snoring (R06.83) Active confirmed Problem Dizziness and giddiness (208316712) Dizziness and giddiness (R42) Active confirmed Problem Paresthesia (finding) (77155363) Paresthesia of skin (R20.2) Active confirmed Problem Carpal tunnel syndrome (47335066) Carpal tunnel syndrome, bilateral upper limbs (G56.03) Active confirmed Problem Depression (406078238) Depression, unspecified (F32.A) Active confirmed Problem Obesity (767951589) Obesity, unspecified (E66.9) Active confirmed Problem Sleep disorder (02705712) Other sleep disorders (G47.8) Active confirmed Problem Hypersomnia (04606964) Hypersomnia, unspecified (G47.10) Active confirmed Problem Chronic fatigue syndrome (disorder) (26201453) Chronic fatigue, unspecified (R53.82) Active confirmed Encounters Encounter Location Date Provider Diagnosis [address] [address] 09/02/2023 Provider Christy Periodic limb movement disorder G47.61 Assessments Encounter Date Diagnosis (ICD Code) Assessment Notes Treatment Notes Treatment Clinical Notes Section Notes 09/02/2023 Periodic limb movement disorder (ICD-10 - G47.61) Plan Of Treatment Pending Test Test Name Order Date MRI : Brain (with and without gadolinium ) 09/01/2022 Sleep Study WatchPAT 300 (Zoll-Ryan) 0 09/01/2022 EMG (Electromyography) - 2 (two) Extremi ties 09/01/2022 Insurance Providers Payer Name Payer Address Payer Phone Subscriber Number Group Number Insured Name Patient Relationship to Insured Coverage Start Date Coverage End Date [employer] [place] [address] [place] [address] [phone] [id number] Kyle Akers Spouse - patient is the spouse of the insured Medical (General) History Medical History History ICD Code Migraine Depression, unspecified F32.A Fibromyalgia M79.7 Anxiety disorder, unspecified F41.9 Lumbar DDD History of obesity Endometriosis R ovarian cyst Surgical History Surgery Date(Month/Year) Hysterectomy/ L Oophorectomy 2010 Cholecystectomy 2021 Hospitalization History Reason Date(Month/Year) Sepsis 09/2022
== END 2024-08-16 10:45 | disposition home or self-care (01) ==
PROVIDERS: PCP Family Medicine; Visit Provider Physician Assistant Medical
DX: R56.9 Unspecified convulsions (principal); G44.52 New daily persistent headache (NDPH)
CPT/HCPCS: 70553; A9577

== ENCOUNTER 2024-11-19 11:24 | Outpatient (CLI) | payer BC, SELFPAY ==
--- NOTE | ~2024-11-19 | XR_ITS ---
EXAM/ PROCEDURE: XR pelvis 1-2V - 11/19/2024 11:45 CDT HISTORY: 49 years old Female with Sacroiliitis, not elsewhere specified COMPARISON: None available TECHNIQUE: One view(s) FINDINGS/ IMPRESSION: There are no fractures or dislocations.Joint space narrowing, subchondral sclerosis, subchondral cyst formation and osteophyte formation, compatible with mild osteoarthritis. Reviewed, dictated and finalized at location N.
== END 2024-11-19 11:25 | disposition home or self-care (01) ==
PROVIDERS: PCP Family Medicine; Visit Provider Physical Medicine & Rehabilitation Pain Medicine
DX: M46.1 Sacroiliitis, not elsewhere classified (principal)
CPT/HCPCS: 72170

== ENCOUNTER 2025-01-28 14:38 | Emergency (ER) | payer BC, SELFPAY ==
--- OUTSIDE RECORDS SUMMARY | 2023-09-02 15:30 | XMS_ITS ---
Author Organization [facility] ([address]) Address [address] [place] [address] Care Team Providers Care Movie Operator Name Role Phone Alcira YANEZ, Koko Primary Care Provider UnavailDr. Henrry Jeffery Unavailable [phone] ZZ-Migration, Provider Unavailable Unavailab le Allergies Allergen (clinical drug ingredient) Drug/Non Drug Allergy documented on EMR Reaction Allergy Type Onset Date Status sumatriptan Imitrex anaphylaxis Drug Allergy Act filemon REASON FOR VISIT [facility] To [facility] Conversion Encounter Medications Medication SIG (Take, Route, Frequency, Duration) Notes Start Date End Date Status Pramipexole Dihydrochloride 0.5 MG 1 tab(s) orally at bedtime; Duration: 30 days 11/24/2022 Active Gabapentin 600 MG 1 tab(s) orally at bedtime; Duration: 30 days Active CBDFX 25 MG WITH MCT OIL ORAL CAPSULE *Please review for potential replacement for e-prescription and drug interaction check* Active tiZANidine HCl 4 MG 2 tab(s) orally every 8 hours; Duration: 30 day(s) Active Melatonin 10 MG 1 cap(s) orally once a day (at bedtime) Active Cholestyramine 4 GM/DOSE ; Duration: 30 Active Omeprazole 40 MG TAKE 1 CAPSULE BY MOUTH DAILY; Duration: 30 Active Dicyclomine HCl 20 MG 1 tab(s) orally 4 times a day; Duration: 30 day(s) 09/01/2022 Active Nabumetone 750 MG TAKE 1 TABLET BY MOUTH TWICE DAILY; Duration: 30 [id number],Unavailable Active Meloxicam 7.5 MG TAKE 1 TABLET BY MOUTH TWICE DAILY; Duration: 30 [id number],Unavailable Active Cymbalta 60 MG 1 cap(s) orally once a day; Duration: 30 day(s) Active Encounters Encounter Location Date Provider Diagnosis [address] [place] [address] 09/02/2023 Provider Christy Periodic limb movement disorder G47.61 Assessments Encounter Date Diagnosis (ICD Code) Assessment Notes Treatment Notes Treatment Clinical Notes Section Notes 09/02/2023 Periodic limb movement disorder (ICD-10 - G47.61) Plan Of Treatment Medication Medication Name Sig Start Date Stop Date Notes Pramipexole Dihydrochloride 0.5 MG 1 tab (s) orally at bedtime; Duration: 30 days 11/24/2022 Gabapentin 600 MG 1 tab(s) orally at bedtime; Duration: 30 days Progress Notes * Eda AKERSDOB:1975 (49 yo F)Acc No.[id number]:09/02/2023 Patient: Barbara Eda CESPEDES Provider: Sabina Caro :1975 A ge:47 Y S ex:Female Date:09/02/2023 Address:[address] [place], [place] [id number] Pcp:Koko Eli MD Subjective: * Chief Complaints: * 1 . [facility] To [facility] Conversion Encounter. * Medical History: * Medications: T aking CBDFX 25 MG WITH MCT OIL ORAL CAPSULE , Notes to Pharmacist: *Please review for potential replacement for e-prescription and drug interaction check*, Taking Melatonin 10 MG Capsule 1 cap(s) orally once a day (at bedtime) , Taking tiZANidine HCl 4 MG Tablet 2 tab(s) orally every 8 hours , Taking Cymbalta 60 MG Capsule Delayed Release Particles 1 cap(s) orally once a day , Taking Meloxicam 7.5 MG Tablet TAKE 1 TABLET BY MOUTH TWICE DAILY , Notes to Pharmacist: [id number],Unavailable, Taking Nabumetone 750 MG Tablet TAKE 1 TABLET BY MOUTH TWICE DAILY , Notes to Pharmacist: [id number],Unavailable, Taking Omeprazole 40 MG Capsule Delayed Release TAKE 1 CAPSULE BY MOUTH DAILY , Taking Cholestyramine 4 GM/DOSE Powder , Taking Dicyclomine HCl 20 MG Tablet 1 tab(s) orally 4 times a day * Allergies: I mitrex: anaphylaxis. Objective: * Vitals: Assessment: * Assessment: 1. P eriodic limb movement disorder - G47.61 Plan: * Treatment: 2. O thers Start Gabapentin Tablet, 600 MG, 1 tab(s), orally, at bedtime, 30 days, 30, Refills 2. * Billing Information: * Visit Code: * Procedure Codes: * Electronic signature of Prov daver ZZ-Migration on 01/28/2025 at 02:40 PM MANAGER MANAGED CARE Sign off status: Pending * Provider: Sabina anthony Migration Date: 0 09/02/2023 Generated for Ofe ng/Berny/Rivas on: 1 03/30/2024 02:40 PM MANAGER MANAGED CARE
--- OUTSIDE RECORDS SUMMARY | 2024-12-03 06:30 | XMS_ITS ---
Author Organization [facility] Address [address] [place] [address] Care Team Providers Care Powerhouse Mechanic Apprentice Name Role Phone ELIAS YANEZ, GENTRY Primary Care Provider Crystal Carlos [phone] NO, PCP Unavailable Unavailable REASON FOR VISIT B L4-5 epidural steroid injection Encounters Encounter Location Date Provider Diagnosis [facility] [address] 12/03/2024 Crystal Richard Plan Of Treatment No Information Progress Notes * Eda THIBODEAUXDOB:1975 (49 yo F)Acc No.[id number]:12/03/2024 Injection Patient: Eda SWIFT Provider: Joseluis Richard MD :1975 A ge:49 Y S ex:Female Date:12/03/2024 Address:[address] [place], [place] [id number] Pcp:GENTRY GRIFFIN MD Subjective: * Chief Complaints: * Medical History: Objective: Assessment: Plan: * Treatment: * * Electronic signature of Crystal Richard MD on 01/28/2025 at 02:40 PM GEOTECHNICAL DEPARTMENT MANAGER Sign off status: Pending * Provider: Joseluis Richard MD Date: 0 12/03/2024 Generated for Printi ng/Faxing/eTransmitting on: 1 03/30/2024 02:40 PM GEOTECHNICAL DEPARTMENT MANAGER
--- OUTSIDE RECORDS SUMMARY | 2024-12-24 04:30 | XMS_ITS ---
Author Organization [facility] Address [address] [place] [address] Care Team Providers Care Industrial Commercial Groundskeeper Name Role Phone ELIAS YANEZ, GENTRY Primary Care Provider Crystal Carlos [phone] NO, PCP Unavailable Unavailable REASON FOR VISIT B L4-5 epidural steroid injection Encounters Encounter Location Date Provider Diagnosis [facility] [address] 12/24/2024 Crystal Richard Plan Of Treatment No Information Progress Notes * Eda THIBODEAUXDOB:1975 (49 yo F)Acc No.[id number]:12/24/2024 Injection Patient: Eda SWIFT Provider: Joseluis Richard MD :1975 A ge:49 Y S ex:Female Date:12/24/2024 Address:[address] [place], [place] [id number] Pcp:GENTRY GRIFFIN MD Subjective: * Chief Complaints: * Medical History: Objective: Assessment: Plan: * Treatment: * * Electronic signature of Crystal Richard MD on 01/28/2025 at 02:41 PM MEDICAL DETAILIST Sign off status: Pending * Provider: Joseluis Richard MD Date: Generated for Printi ng/Faxing/eTransmitting on: 03/30/2024 02:41 PM MEDICAL DETAILIST
--- NOTE | ~2025-01-28 | CT_ITS ---
EXAM/PROCEDURE: CT abdomen pelvis w con HISTORY: RLQ pain, nausea vomiting, constipation COMPARISON: April 11, 2024 TECHNIQUE: IV contrast enhanced CT of the abdomen and pelvis FINDINGS: Lung bases are clear and heart size normal. No hydroureteronephrosis. No urolithiasis seen. Retrocecal appendix normal. Aorta normal in the mild atherosclerotic changes. Uterus appears removed. 3.1 x 2.3 cm right adnexal cyst smaller compared to the previous exam. Adnexal regions otherwise unremarkable. No bulky mesenteric or retroperitoneal lymphadenopathy or masses. No hydroureteronephrosis. Fatty liver changes. Cholecystectomy clips. Pancreas spleen stomach and adrenal glands appear normal. Nonobstructive bowel gas pattern with no free air free fluid or pneumatosis. IMPRESSION: No acute process seen to explain source of patient's symptoms. Reviewed, dictated and finalized at location A. DENT SERVICE COORDINATOR
--- NOTE | ~2025-01-28 | XR_ITS ---
EXAMINATION: XR chest 2V, 01/28/2025 15:13 PAPER PATTERN INSPECTOR HISTORY: acid reflux, chest pain, nausea COMPARISON: No comparisons available. Technique: 2 views obtained. Findings: The lungs are clear, no effusion. No pneumothorax. Heart is normal size. Mediastinal and hilar contours are within normal limits. Bony thorax no acute abnormality. Impression: No acute cardiopulmonary abnormality. Reviewed, dictated and finalized at location P. R PATTERN INSPECTOR Impression: No acute cardiopulmonary abnormality.
[2025-01-28 14:39] VITALS: BP 140/91; PULSE 98; RESP 18; TEMP 36.4; O2SAT 97
--- OUTSIDE RECORDS SUMMARY | 2025-01-28 14:40 | XMS_ITS | Patient Health Record ---
Author Organization [facility] [employer] [place] ([address]) Address [address] [place] [id number] Care Team Providers Care Admin Asst Name Role Phone Alcira YANEZ, Koko Primary Care Provider Dr. Henrry Hwang Unavailable [phone] Allergies Allergen (clinical drug ingredient) Drug/Non Drug Allergy documented on EMR Reaction Allergy Type Onset Date Status sumatriptan Imitrex anaphylaxis Drug Allergy Act filemon Reason For Referral No Information Medications Medication SIG (Take, Route, Frequency, Duration) Notes Start Date End Date Status Cholestyramine 4 GM/DOSE ; Duration: 30 Active Omeprazole 40 MG TAKE 1 CAPSULE BY MOUTH DAILY; Duration: 30 Active Pramipexole Dihydrochloride 0.5 MG 1 tab(s) orally at bedtime; Duration: 30 days 11/24/2022 Active Dicyclomine HCl 20 MG 1 tab(s) orally 4 times a day; Duration: 30 day(s) 09/01/2022 Active Nabumetone 750 MG TAKE 1 TABLET BY MOUTH TWICE DAILY; Duration: 30 M7660,Unavailable Active Meloxicam 7.5 MG TAKE 1 TABLET BY MOUTH TWICE DAILY; Duration: 30 M5416,Unavailable Active Gabapentin 600 MG 1 tab(s) orally at bedtime; Duration: 30 days Active CYMBALTA 60 mg 1 cap(s) orally once a day; Duration: 30 day(s) Active MELOXICAM 7.5 mg TAKE 1 TABLET BY MOUTH TWICE DAILY; Duration: 30 M5416,Unavailable Active MELATONIN 10 mg 1 cap(s) orally once a day (at bedtime) Active TIZANIDINE 4 mg 2 tab(s) orally every 8 hours; Duration: 30 day(s) Active CHOLESTYRAMINE 4 g/9 g ; Duration: 30 Active PRAMIPEXOLE 0.5 mg 1 tab(s) orally at bedtime; Duration: 30 days 11/24/2022 Active DICYCLOMINE 20 mg 1 tab(s) orally 4 times a day; Duration: 30 day(s) 09/01/2022 Active NABUMETONE 750 mg TAKE 1 TABLET BY MOUTH TWICE DAILY; Duration: 30 60,Unavailable Active OMEPRAZOLE 40 mg TAKE 1 CAPSULE BY MOUTH DAILY; Duration: 30 Active Cymbalta 60 MG 1 cap(s) orally once a day; Duration: 30 day(s) Active CBDFX 25 MG WITH MCT OIL ORAL CAPSULE *Please review for potential replacement for e-prescription and drug interaction check* Active GABAPENTIN 600 mg 1 tab(s) orally at bedtime; Duration: 30 days Active tiZANidine HCl 4 MG [...] Status Risk Notes Problem Vitamin D deficiency (32018892) Vitamin D deficiency, unspecified (E55.9) Active confirmed Problem Anxiety disorder (044013690) Anxiety disorder, unspecified (F41.9) Active confirmed Problem Chronic migraine without aura, non-refractory (disorder) (401864748747869) Migraine without aura, not intractable, without status migrainosus (G43.009) Active confirmed Problem Migraine with aura (0087806) Migraine with aura, not intractable, without status migrainosus (G43.109) Active confirmed Problem Chronic migraine without aura, non-intractable (567609314877728) Chronic migraine without aura, not intractable, without status migrainosus (G43.709) Active confirmed Problem Sleep apnea (71348731) Sleep apnea, unspecified (G47.30) Active confirmed Problem Obstructive sleep apnea syndrome (disorder) (51036488) Obstructive sleep apnea (adult) (pediatric) (G47.33) Active confirmed Problem Periodic limb movement disorder (952539737) Periodic limb movement disorder (G47.61) Active confirmed Problem Carpal tunnel syndrome (40788299) Carpal tunnel syndrome, right upper limb (G56.01) Active confirmed Problem Polyarthritis (659185245) Polyarthritis, unspecified (M13.0) Active confirmed Problem Fibromyalgia (706353672) Fibromyalgia (M79.7) Active confirmed Problem Snoring (91381301) Snoring (R06.83) Active confirmed Problem Dizziness and giddiness (108069402) Dizziness and giddiness (R42) Active confirmed Problem Paresthesia (finding) (44269813) Paresthesia of skin (R20.2) Active confirmed Problem Carpal tunnel syndrome (12231045) Carpal tunnel syndrome, bilateral upper limbs (G56.03) Active confirmed Problem Depression (145935308) Depression, unspecified (F32.A) Active confirmed Problem Obesity (204350220) Obesity, unspecified (E66.9) Active confirmed Problem Sleep disorder (64347563) Other sleep disorders (G47.8) Active confirmed Problem Hypersomnia (53498294) Hypersomnia, unspecified (G47.10) Active confirmed Problem Chronic fatigue syndrome (disorder) (42685439) Chronic fatigue, unspecified (R53.82) Active confirmed Plan Of Treatment Pending Test Test Name Order Date MRI : Brain (with and without gadolinium ) 09/01/2022 Sleep Study WatchPAT 300 (Zoll-Ryan) 0 09/01/2022 EMG (Electromyography) - 2 (two) Extremi ties 09/01/2022 Insurance Providers Payer Name Payer Address Payer Phone Subscriber Number Group Number Insured Name Patient Relationship to Insured Coverage Start Date Coverage End Date [facility] [id number] [place] [address] [id number] Kyle Akers Spouse - patient is the spouse of the insured Medical (General) History Medical History History ICD Code Migraine Depression, unspecified F32.A Fibromyalgia M79.7 Anxiety disorder, unspecified F41.9 Lumbar DDD History of obesity Endometriosis R ovarian cyst Surgical History Surgery Date(Month/Year) Hysterectomy/ L Oophorectomy 2010 Cholecystectomy 2021 Hospitalization History Reason Date(Month/Year) Sepsis 09/2022
--- OUTSIDE RECORDS SUMMARY | 2025-01-28 14:41 | XMS_ITS | Clinical Summary ---
Author Organization [address] Address [address] [place] [id number] Care Team Providers Care Chemical Plant Technical Director Name Role Phone Marleni Santos NP Primary Care Provider [phone] Allergies Active Allergy Reactions Criticality Noted Date [...] mouth daily 30 tablet 5 3 Active amitriptyline (ELAVIL) 25 mg tablet [...] mg total) by mouth daily 4 Active hydroxychloroqui ne (PLAQUENIL) 200 mg tabletIndication s:Arthralgia of both hands,Inflammato ry arthritis,Arthra lgia, unspecified joint,Rheumatoid arthritis with positive rheumatoid factor, involving unspecified site (HCC) TAKE 1 TABLET(200 MG) BY MOUTH TWICE DAILY 180 tablet 5 Active Active Problems Problem Noted Date Diagnosed Date Arthralgia 05/08/2023 Inflammatory arthritis 02/16/2023 Dysfunction of both eustachian tubes 12/15/2020 Acute recurrent maxillary sinusitis 12/15/2020 Surgical History Surgery Date Site/Laterality Comments HYSTERECTOMY [...] Tobacco: Never Tobacco Cessation:Counseling Given: Not Answered [facility] Utilities Answer Date Recorded In the past 12 months has th e electric, gas, oil, or water company threatened to shut off services in your home? No 07/09/2024 Social Connection and Isolation Panel Answer Date Recorded In a typical week, how many times do you talk on the phone with family, friends, or neighbors? Once a week 07/09/2024 How often do you get together with friends or re latives? Once a week 07/09/2024 How often do you attend voodoo or holiness serv ices? Never 07/09/2024 Do you belong to any clubs o r organizations such as voodoo groups, unions, fraternal or athletic groups, or [...] Recorded Patient Health Questionnaire-2 Score 1 07/09/2024 [facility] - Occupational Stress [...] in a half-way (including now)? No 05/08/2023 Personal Safety Answer Date Recorded Have you ever been in or are you currently in a harmful physical or emotional relationship or is someone making you feel afraid or unsafe? Denies 08/13/2024 Comments Unknown Sex and Gender Information Value Date Recorded Sex Assigned at Not on file Legal Sex Female 12:30 AM HOME THERAPY CLINICIAN Gender Identity Female 02/15/2023 7:16 PM HOME THERAPY CLINICIAN Sexual Orientation Straight 02/15/2023 7: 16 PM HOME THERAPY CLINICIAN Last Filed Vital Signs Vital Sign Reading Time Taken Comments Blood Pressure 101/60 08/13/2024 6:05 PM CDT Pulse 72 08/13/2024 6:05 PM CDT Temperature 37.1 C (98.8 F) 08/13/2024 3:18 PM CDT Respiratory Rate 20 08/13/2024 6:05 PM CDT Oxygen Saturation 98% 08/13/2024 6:05 PM CDT Inhaled Oxygen Concentration - - Weight 102.2 kg (225 lb 4.8 oz) 08/13/2024 3:18 PM CDT Height 160 cm (5' 3) 07/09/2024 8:25 AM CDT Body Mass Index 39.91 07/09/2024 8:25 AM CDT Plan of Treatment Health Maintenance Due Date Last Done Comments Breast Cancer Screening-Mammogram 1973 Colon Cancer Screening-Colonoscopy 1973 DTaP/Tdap/Td Vaccine (1 - Tdap) 1984 Regular Well Visit/Exam 18-64 09/13/1991 Pneumococcal vaccine <65 (1 of 2 - PCV) 1992 Zoster Vaccine (1 of 2) 1992 Influenza Vaccine (#1) 2024 Depression Screening 07/09/2025 07/09/2024, 09/04/2023, 05/08/2023, Additional history exists Hepatitis B Screening Completed 01/14/2023 Hepatitis C Screening Completed 01/14/2023 Procedures Procedure Name Priority Date/Time Associated Diagnosis Comments HEPATITIS C ANTIBODY Routine 01/14/2023 7:09 AM CDT Polyarthritis from Last 3 Months or Most Recently Relevant to Health Maintenance Results * Hepatitis C antibody Blood (01/14/2023 7:09 AM CDT) Hep C Ab Nonreactive Nonreactive SELNEA DE LA CRUZ Comment: Interpretive Data Nonreactive: [...] - GENERAL ORD ERABLES Final Result [facility] [address] [facility] Department [place] [address] from Last 3 Months or Most Recently Relevant to Health Maintenance Insurance [facility] [employer] [place] Care Teams Chemical Plant Technical Director Relationship Specialty Start Date End Date Marleni Santos NP PCP - General Nurse Practitioner 12/08/20
--- OUTSIDE RECORDS SUMMARY | 2025-01-28 14:41 | XMS_ITS | Patient Health Record ---
Author Organization [facility] Address [address] [place] [address] Care Team Providers Care External Grinder Name Role Phone ELIAS YANEZ, GENTRY Primary Care Provider Unavaila Crystal Portillo Unavailable [phone] NO, PCP Unavailable Unavailable Banuelos, Juan Jose Unavailable [phone] Reason For Referral No Information Medications Medication SIG (Take, Route, Frequency, Duration) Notes Start Date End Date Status Cannabinoids 15 MG as directed Orally Active Aleve 220 MG two tablets Orally about twice weekly Active Magnesium Glycinate 100 MG 4 tablets Orally daily Active predniSONE 10 MG as directed Orally take 40mg days 1-5, 30mg for days 6-8, 20mg for days 9-10, and 10mg for days 11-12 for 12 11/19/2024 Active tiZANidine HCl 4 MG 1-2 tablets at bedti me as needed Orally at bedtime as needed for 30 days 11/19/2024 Active Gabapentin 300 MG 1 capsule Orally 3 times a day Active LaMICtal 150 MG 1 tablet Orally twic e a day Active Vitamin B6 100 MG 1 tablet Orally Once a day Active Vitamin D 50 MCG (1999) 1 tablet Oral ly Once a day Active Hydroxychloroquine Sulfate 2 00 MG two tablets Orally daily Active DULoxetine HCl 60 MG 1 capsule Orally On ce a day, and one capsule of 30 mg Active Problems Problem Type SNOMED Code ICD Code Onset Dates Problem Status W/U Status Risk Notes Problem Solitary sacroiliitis (593429206) Sacroiliitis, not elsewhere classified (M46.1) Active confirmed Encounters Encounter Location Date Provider Diagnosis [facility] [address] 11/19/2024 Juan Jose Banuelos Lumbar radiculopathy M54.16 ; Spinal stenosis, lumbar region with neurogenic claudication M48.062 and Sacroiliitis, not elsewhere classified M46.1 [facility] [place] [address] 11/27/2024 Crystal Richard Assessments Encounter Date Diagnosis (ICD Code) Assessment Notes Treatment Notes Treatment Clinical Notes Section Notes 11/19/2024 Lumbar radiculopathy (ICD-10 - M54.16) IMPRESSION: 1. Low back pain with radiation to the bilateral shins. 2. Right sacroiliitis . 3. Lumbar spondylosis. 11/19/2024 Spinal stenosis, lumbar region with neurogenic claudication (ICD-10 - M48.062) IMPRESSION: 1. Low back pain with radiation to the bilateral shins. 2. Right sacroiliitis . 3. Lumbar spondylosis. 11/19/2024 Sacroiliitis, not elsewhere classified (ICD-10 - M46.1) IMPRESSION: 1. Low back pain with radiation to the bilateral shins. 2. Right sacroiliitis . 3. Lumbar spondylosis. 11/19/2024 Other PLAN: We will schedule the patient for bilateral L4-5 epidural steroid injections to target her pain and radicular symptoms stemming from stenosis. We discussed procedure details, risks, benefits, alternatives and expected outcomes of the above procedure with the patient. The patient expressed understanding. All patient questions were answered to the patient's satisfaction. We will consider a right sacroiliac joint injection or a right intra-articular hip injection in the future after the patient's upcoming epidural steroid injections. We will order an x-ray of the pelvis prior to the injection to rule out any acute bony pathology. We will review this at a followup visit. We will prescribe Tizanidine (Zanaflex) 4 mg 1-2 tablets at night as needed to improve muscle pain and sleep quality overnight. Discussed potential medication risks and side effects of the above medication with the patient. The patient expressed understanding. The patient denies a history of kidney or liver disease. We will prescribe the patient a prednisone burst and taper to target the patient's acute pain and to decrease inflammation. Discussed potential medication risks and side effects of the above medication with the patient. The patient expresses understanding. Discussed with the patient that [facility] is an interventional pain management practice, and our ultimate goal is to provide sustained pain relief and improved function through procedures and not with opioid medications. Explained to patient that we do not prescribe opioid medications indefinitely, and our goal is to wean patients off of opioid pain medications entirely. We further explained to the patient that since she is using cannabis and that is a federally elicit substance and as such, we cannot prescribe any controlled substances while she takes any federally elicit substances. The patient expresses understanding and is agreeable to this. We will not add or change any other medications at this time as the patient is currently tolerating all medications with no significant side effects. We advised the patient to contact the clinic if they develop any new pain or worsening symptoms. IMPRESSION: 1. Low back pain with radiation to the bilateral shins. 2. Right sacroiliitis . 3. Lumbar spondylosis. Plan Of Treatment Pending Test Test Name Order Date Xray Pelvis AP only 11/19/2024
--- OUTSIDE RECORDS SUMMARY | 2025-01-28 14:41 | XMS_ITS | Patient Health Record ---
Author Organization [facility] [employer] Address [address] [facility] [address] [place] [address] Care Team Providers Care Staff Mine Warfare Officer Name Role Phone Brian Prakash Unavailable [phone] Reason For Referral No Information Medications Medication SIG (Take, Route, Frequency, Duration) Notes Start Date End Date Status ALPRAZolam 1 MG Tablet Oral Active Topiramate 25 MG Tablet Oral Active Lyrica 75 MG Capsule Oral Active Soma 350 MG Tablet Oral A ctive PARoxetine HCl 10 MG Tablet Oral Active lamoTRIgine 200 MG Tablet Oral Active Cymbalta 30 MG Capsule Delayed Release Particles Oral Ac tive Melatonin 3 MG Tablet Oral Active Zolpidem Tartrate 5 MG Tablet Oral Active Gabapentin 100 MG Capsule Oral Active PARoxetine HCl 20 MG Tablet Oral Active Nabumetone 750 MG Tablet Oral Active DULoxetine HCl 60 MG Capsule Delayed Release Particles Oral Active Plan Of Treatment No Information
--- NOTE | 2025-01-28 14:44 | ECG_ITS ---
Test Date: 2025-01-28 14:47:09 Measurements Intervals [place] Rate: 82 P: 54 [place]: 135 QRS: 50 QRSD: 88 T: 33 QT: 355 QTc: 416 Interpretive Statements SINUS RHYTHM Compared to ECG 04/11/2024 14:02:35 T-wave abnormality no longer present Electronically Signed On 01-28-2025 18:07:07 DIRECTOR OF RESEARCH by Heather Negron M.D.
--- NOTE | 2025-01-28 15:29 | ED.GENADULT ---
HPI - General Adult General Chief complaint: Nausea/Vomiting/Diarrhea Stated complaint: n/v, constipated Time Seen by Provider: 01/28/25 15:05 History of Present Illness HPI narrative: 49-year-old female presents to the emergency department for evaluation for worsening esophagitis/gastritis. Patient states that she has been having worsening GERD symptoms for the last few weeks. Patient has been taking her omeprazole. Patient did call GI does have follow-up on Monday. Patient states today she began having nausea and vomiting and patient has been constipated for the last 3 days. Patient reports he does have prior history of possible colitis for which she was admitted in 2021 at [facility]. [place] is where her GI physician is located. Related Data Home Medications ?Medication ?Instructions ?Recorded ?Confirmed ?Last Taken ?Type hydroxychloroquine 200 mg tablet 200 mg PO BID 05/30/23 12/10/24 Unknown History gabapentin 300 mg capsule See Rx Instructions PO TID 12/10/24 12/10/24 Unknown History lamotrigine 150 mg tablet mg PO BID 12/10/24 12/10/24 Unknown History tizanidine 4 mg tablet 2 mg PO Q8H PRN muscle spasticity 12/10/24 12/10/24 Unknown History Allergies Allergy/AdvReac Type Severity Reaction Status Date / Time sumatriptan Allergy Severe Anaphylactic Verified 01/28/25 14:38 Shock bupropion (From Wellbutrin AdvReac Severe Agitated Verified 01/28/25 14:38 SR) levetiracetam (From Keppra) AdvReac Intermediate suicidial Verified 01/28/25 14:38 Review of Systems Review of Systems: All systems reviewed & are unremarkable except as noted in HPI and below PMFSH Past Medical History Medical History Seronegative arthritis Right hip pain Lumbar radiculopathy Skin lesion of right arm Achilles tendon pain History of peptic ulcer Peptic ulcer disease French esophagus Anxiety Screening for thyroid disorder Screening for malignant neoplasm of breast Screening for diabetes mellitus Bipolar disorder, unspecified Chronic low back pain Surgical History Surgical History Hx of cholecystectomy Hx laparoscopic cholecystectomy 08/18/21 H/O: hysterectomy Family History Family History Grandparent Pancreatic cancer Sibling Cerebrovascular accident Father CHF (congestive heart failure) Diabetes mellitus Hypertension Mother Kidney failure Hypoparathyroidism Hypertension Sibling COVID-19 Hypertension Diabetes mellitus Social History Social History Smoking packs per day: 1 Smoking cigarettes per day: 20.0 Years smoked: 26 Smoking pack-years: 26.00 Tobacco type: e-cigarettes/vaping Second hand tobacco smoke exposure: Yes Smoking end date: 11/20/23 Additional smoking assessment comments: 1 ppd x 26 years Alcohol intake: current Drinks per week: 2 Substance use: former Substance use type: marijuana Other substance usage details: edibles rarely Lack of Transportation: No Lack of Food: Never True Current Housing: I Have Housing Concerned About Future Housing: No Difficulty Paying Gas/Electric Bills: No Difficulty Paying for Meds: No Currently Unemployed: No Education: High School Diploma/GED Difficulty w/ Childcare or Family Care: No Living arrangements: with family Occupation/Education: occupation 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 HEAD: normocephalic, atraumatic. EYES: PERRLA/EOMI, conjunctivae clear. NOSE: Normal no drainage EARS:TMS clear with good light reflex. THROAT: Pharynx clear, no exudate. NECK: Supple. No adenopathy, no masses. RESPIRATORY: Airway patent, respirations nonlabored. Clear to auscultation bilaterally, no rales, rhonchi, wheezing. CARDIOVASCULAR: Regular rate and rhythm without murmurs rubs or gallops. ABDOMINAL: Lower abdominal tenderness to palpation MUSCULOSKELETAL: Moves all extremities. Strength/ROM intact, No edema, No calf tenderness. NEURO: Alert. Cranial nerves II through XII intact. Good gait. Good coordination SKIN: Warm, dry. Normal Color PSYCHIATRIC: Normal affect/mood. Course Vital Signs Vital signs: Vital Signs Temperature 97.6 F 01/28/25 14:39 Pulse Rate 98 01/28/25 14:39 Respiratory Rate 18 01/28/25 14:39 Blood Pressure 140/91 H 01/28/25 14:39 Pulse Oximetry 97 01/28/25 14:39 Oxygen Delivery Room Air 01/28/25 14:39 Temperature 97.6 F 01/28/25 14:39 Pulse Rate 80 01/28/25 16:12 Respiratory Rate 19 01/28/25 16:12 Blood Pressure 126/75 01/28/25 16:12 Pulse Oximetry 96 01/28/25 16:12 Oxygen Delivery Room Air 01/28/25 14:39 Medical Decision Making MDM Narrative Medical decision making narrative: 49-year-old female history of gastritis present to the emergency department for evaluation for worsening epigastric burning. Patient does take omeprazole and Pepcid. Patient does have follow-up on Monday to have an upper endoscopy but she felt her symptoms were worsening. Patient was also concern for possible bowel obstruction or bowel inflammation. Patient is currently afebrile with no leukocytosis hemoglobin of 13.8. INR of 1.0. No significant acute abnormalities on her CMP. Patient did have mild elevations in AST and ALT, lipase was elevated at 423. CT abdomen pelvis showed no acute abnormality. Chest x-ray showed no acute abnormality. Patient was treated with IV Protonix, IV fluids, IV Reglan and a GI cocktail. Patient did is reports that her symptoms were significantly improved at time of re-evaluation. Patient family updated the results of the workup. All questions concerns were addressed patient was comfortable with plan for discharge and close follow-up. Patient was encouraged to increase her daily omeprazole to 40 mg daily and to continue to have close follow-up with GI as scheduled. Patient was also provided Reglan for further nausea control at home. Differential Diagnosis Differential Diagnosis: Colitis, diverticulitis, gastritis, esophagitis, pancreatitis Vital Signs Vital Signs: Vital Signs Temperature 97.6 F 01/28/25 14:39 Pulse Rate 98 01/28/25 14:39 Respiratory Rate 18 01/28/25 14:39 Blood Pressure 140/91 H 01/28/25 14:39 Pulse Oximetry 97 01/28/25 14:39 Oxygen Delivery Room Air 01/28/25 14:39 Temperature 97.6 F 01/28/25 14:39 Pulse Rate 80 01/28/25 16:12 Respiratory Rate 19 01/28/25 16:12 Blood Pressure 126/75 01/28/25 16:12 Pulse Oximetry 96 01/28/25 16:12 Oxygen Delivery Room Air 01/28/25 14:39 Lab Data Lab results reviewed: Yes I reviewed the patient's lab results. 01/28/25 15:25 01/28/25 15:25 Labs: Lab Results 01/28/25 Range/Units 15:25 WBC 5.6 (4.5-10.0) K/mm3 RBC 4.40 (4.2-5.4) M/mm3 Hgb 13.8 (12.0-15.0) g/dL Hct 40.5 (37.0-47.0) % MCV 92.0 (80-100) fl MCH 31.4 (26-34) pg MCHC 34.1 (32-36) g/dl RDW 11.9 (11.5-14.5) % Plt Count 177 (150-375) k/mm3 MPV 9.1 (7.4-10.4) fl Immature Gran % (Auto) 2.0 H (0-0.5) % Neut % (Auto) 59.3 (45.5-73.1) % Lymph % (Auto) 28.3 (18.3-44.2) % Morrow % (Auto) 9.2 H (2.6-8.5) % Eos % (Auto) 0.7 (0-4.4) % Baso % (Auto) 0.5 (0.2-1.2) % Lymph # (Auto) 1.57 (0.9-3.2) K/mm3 Morrow # (Auto) 0.5 (0.1-0.6) K/mm3 Eos # (Auto) 0.0 (0-0.3) K/mm3 Baso # (Auto) 0.0 (0.0-0.1) K/mm3 Abs Immat Gran (auto) 0.11 H (0.00-0.031) K/mm3 Absolute Neuts (auto) 3.3 (1.3-6.7) K/mm3 Absolute Nucleated RBC 0.000 (0.0-0.012) K/mm3 Nucleated RBC % 0.0 (0.0-0.2) % PT 13.0 (11.1-14.7) Seconds INR 1.0 APTT 26.3 (22.3-36.8) Seconds Sodium 137 (137-145) mmol/L Potassium 4.2 (3.4-5.0) mmol/L Chloride 103 (98-107) mmol/L Carbon Dioxide 28 (22-30) mmol/L Anion Gap 6 (4-12) mmol/L BUN 15 (7-17) mg/dL Creatinine 0.87 (0.7-1.0) mg/dL Estim Creat Clear Calc 81 ml/min Estimated GFR > 60 (59 - ) Glucose 117 H (65-110) mg/dL Calcium 9.2 (8.4-10.2) mg/dL Total Bilirubin 0.4 (0.2-1.3) mg/dL AST 62 H (14-36) U/L ALT 91 H (6-35) U/L Alkaline Phosphatase 51 (38-126) U/L Troponin I < 0.012 (0.000-0.034) ng/mL Total Protein 7.2 (6.3-8.2) g/dL Albumin 4.4 (3.5-5.1) g/dL Lipase 423 H (23-300) U/L Imaging Data Radiologist's impression: Impressions Chest X-Ray 01/28/25 15:21 Impression: No acute cardiopulmonary abnormality. Abdomen/Pelvis CT 01/28/25 16:44 IMPRESSION: No acute process seen to explain source of patient's symptoms. Discharge Plan Discharge Clinical Impression: Constipation, Abdominal pain Patient Disposition: Home Condition: Stable Instructions: Antibiotic Form, Diet for Stomach Ulcers and Gastritis (ED), Acute Nausea and Vomiting (ED) Additional Instructions: Increase your omeprazole to 40 mg daily. Reglan as needed for nausea control. Maalox as needed for intermittent burning sensation. MiraLax as directed to help with constipation. Continue have close follow-up with your surgeon for endoscopy. If you have any worsening symptoms and please call or return to the emergency department. Patient Language: Amharic Prescriptions: New metoclopramide HCl [Reglan] 10 mg tablet 10 mg PO Q6H PRN (Reason: nausea and vomiting) Qty: 14 0RF No Action omeprazole 40 mg capsule,delayed release(DR/EC) 40 mg PO DAILY 30 Days Qty: 30 5RF hydroxychloroquine 200 mg tablet 200 mg PO BID lamotrigine 150 mg tablet PO BID tizanidine 4 mg tablet 2 mg PO Q8H PRN (Reason: muscle spasticity) gabapentin 300 mg capsule See Rx Instructions PO TID Rx Instructions: orally three times a day; ondansetron 4 mg tablet,disintegrating 4 mg PO Q4H Qty: 10 0RF Rx Instructions: 1st dose 1-2 hr before radiation phentermine 15 mg capsule 15 mg PO DAILY Qty: 30 1RF Rx Instructions: must administer 2 hours after breakfast duloxetine [Cymbalta] 60 mg capsule,delayed release(DR/EC) 60 mg PO DAILY Qty: 90 1RF alprazolam 0.5 mg tablet 0.5 mg PO BID PRN (Reason: panic attack(s)) Qty: 20 0RF duloxetine 30 mg capsule,delayed release(DR/EC) 30 mg PO DAILY Qty: 90 2RF amitriptyline 25 mg tablet 25 mg PO QHS Qty: 30 1RF Follow-up/Referrals: Koko Eli MD [Primary Care Provider, Family Practice]
[2025-01-28 15:31] LABS: Hematocrit 40.5 % (37.0-47.0); Hemoglobin 13.8 g/dL (12.0-15.0); Immature Granulocyte Percent A 2.0 % (0-0.5); Lymphocytes Absolute Auto 1.57 K/mm3 (0.9-3.2); Mean Corpuscular HGB Conc 34.1 g/dl (32-36); Mean Corpuscular Hemoglobin 31.4 pg (26-34); Mean Corpuscular Volume 92.0 fl (80-100); Nucleated Red Blood Cells Absolute Auto 0.000 K/mm3 (0.0-0.012); Nucleated Red Blood Cells Perc 0.0 % (0.0-0.2); Platelet Count Result 177 k/mm3 (150-375); Red Blood Count 4.40 M/mm3 (4.2-5.4); White Blood Count 5.6 K/mm3 (4.5-10.0)
[2025-01-28 15:42] LABS: INR 1.0; Prothrombin Time 13.0 Seconds (11.1-14.7)
[2025-01-28 15:43] LABS: Partial Thromboplastin Time 26.3 Seconds (22.3-36.8)
--- OUTSIDE RECORDS SUMMARY | 2025-01-28 15:44 | XMS_ITS | Clinical Summary ---
Author Organization [facility] Address [address] [place] [address] Care Team Providers Care Fire Observer Name Role Phone Koko Eli MD Primary Care Provider [phone] Allergies Active Allergy Reactions Criticality Noted Date Comments Sumatriptan Anaphylaxis High 09/22/2019 Medications butalbital-acetamin ophen-caffeine (FIORICET) 50-300-40 MG capsule Take 1 capsule [...] by mouth 3 (three) times daily. Active omeprazole (PRILOSEC) 20 MG capsule Take 1 capsule (20 mg total) by mouth daily. Active DULoxetine (CYMBALTA) 60 MG capsule Take 90 mg by mouth daily. Active hydroxychloroquine (PLAQUENIL) 200 MG tablet Take 1 tablet (200 mg total) by mouth 2 (two) times daily. Active HYDROcodone-acetami nophen (NORCO) 5-325 MG tabletIndications:A cute Pain < 7 Day Supply Take 1 tablet by mouth every 6 (six) hours as needed for Pain. Indications: Acute Pain < 7 Day Supply 15 tablet 5 Active ondansetron (ZOFRAN-ODT) 4 MG disintegrating tablet Take 1 tablet (4 mg total) by mouth every 8 (eight) hours as needed for Nausea. 20 tablet 5 Active lamoTRIgine (LAMICTAL) 150 MG tabletIndications:S eizures, generalized convulsive (CMS/HCC HHS/HCC) Take 1 tablet (150 mg total) by mouth 2 (two) times daily. 180 tablet 3 5 10/09/19 Active gabapentin (NEURONTIN) 300 MG capsuleIndications: Seizures, generalized convulsive (CMS/HCC HHS/HCC),Radiculopa thy, cervical region Take 1 capsule (300 mg total) by mouth 3 (three) times daily. 270 capsule 3 5 10/09/19 Active tiZANidine (ZANAFLEX) 4 MG tablet TAKE 1 TO 2 TABLETS BY MOUTH AT BEDTIME NEEDED Active Melatonin 10 MG Cap 1 cap(s) orally once a day (at bedtime) Active amitriptyline (ELAVIL) 50 MG tabletIndications:R adiculopathy, cervical region Take 1 tablet (50 mg total) by mouth nightly at bedtime. 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 Acute recurrent maxillary sinusitis 12/15/2020 Dysfunction of both eustachian tubes 12/15/2020 Bipolar disorder 01/12/2011 Encounters Date Type Department Care Team Description 12/23/2024 1:20 PM CDT [facility] [address], [address] [place] [phone] Carmina De Los Santos MD Follow Up (12 weeks) 12/23/2024 Travel 11/12/2024 MyChart [facility] - [address], [address] [place] [phone] Carmina De Los Santos MD Diagnosis 11/05/2024 MyChart Message Enc [facility] - [address] [place] [phone] Carmina De Los Santos MD Question from Last 3 Months Family History Medical [...] Cigarettes Smokeless Tobacco: Never Tobacco Cessation:Counseling Given: Yes Alcohol Use Standard Drinks/Week Comments Not Currently 0 (1 standard drink = 0.6 oz pur e alcohol) PHQ-2 Answer Date Recorded Patient Health Questionnaire-2 Score 0 10/08/2024 Comments No Sex and Gender Information Value Date Recorded Sex Assigned at Female 06/19/2023 3:07 PM CDT Legal Sex Female 6:23 PM CDT Gender Identity Female 06/19/2023 3:07 PM CDT Sexual Orientation Straight 06/19/2023 3: 07 PM CDT Last Filed Vital Signs Vital Sign Reading Time Taken Comments Blood Pressure 118/83 12/23/2024 1:13 PM CDT Pulse 75 12/23/2024 1:13 PM CDT Temperature 36.7 C (98.1 F) 12/23/2024 1:13 PM CDT Respiratory Rate 18 12/23/2024 1:13 PM CDT Oxygen Saturation 95% 12/23/2024 1:13 PM CDT Inhaled Oxygen Concentration - - Weight 109.8 kg (242 lb) 12/23/2024 1:13 PM CDT Height 157.5 cm (5' 2) 12/23/2024 1:13 PM CDT Body Mass Index 44.26 12/23/2024 1:13 PM CDT Plan of Treatment Upcoming Encounters Date Type Department Care Team (Late st Contact Info) Description 02/03/2025 3:00 PM SUPERVISOR MONEY ROOM Office Visit [facility] Medical Group General Surgery [facility] [id number] [place] [address], [address] [place] [address] Melisa Humphries MD [address] [place] [address] DR LIM [address] [place] [phone] Health Maintenance Due Date Last Done Comments Annual Physical 1976 Hepatitis C 09/13/1991 DTaP, Tdap and Td Vaccines (1 - Tdap) 1992 Hepatitis B Vaccines (1 of 3 - 19+ 3-dose series) 1992 Mammogram Screening 2013 Pneumococcal Vaccine: 50+ Years (1 of 1 - PCV) 09/13/2023 Zoster Vaccines (1 of 2) 09/13/2023 COVID-19 Vaccine (1 - 2024- season) 2024 Influenza Adult (#1) 2024 Colorectal Cancer Screening Colonoscopy (10 Years) 08/14/2033 08/15/2023, 08/15/2023, 11/17/2021, Additional history exists PHQ-2 (Physician [place]) Completed 10/08/2024 Hepatitis A Vaccines Aged Out No long er eligible based on patient's age to complete this topic Meningococcal B Vaccine Aged Out No l onger eligible based on patient's age to complete this topic Meningococcal Vaccine Aged Out No abhay rosa eligible based on patient's age to complete this topic RSV Immunizations Under 20 Months Aged Out No longer eligible based on patient's age to complete this topic Goals Goal Patient Goal Type Associated Problems Recent Progress Patient-Stated? Author Health - patient able to perform ADLs independently General No Donya Nicolas, night club manager Procedure Name Priority Date/Time Associated Diagnosis Comments COLONOSCOPY Routine 08/15/2023 10:24 AM CDT from Last 3 Months or Most Recently Relevant to Health Maintenance Insurance [facility] Advance Directives * Full Code (Latest Code Status on File) Date Activated Date Inactivated Comments 10/15/2021 2:10 PM 10/18/2021 10:00 PM Care Teams Fire Observer Relationship Specialty Start Date End Date Koko Eli MD [address] [place], [place] [id number] PCP - General FAMILY PRACTICE 09/22/19
--- OUTSIDE RECORDS SUMMARY | 2025-01-28 15:44 | XMS_ITS | Encounter Summary ---
Author Organization [facility] Address [address] [place] [address] Care Team Providers Care Wall Steamer Name Role Phone Koko Eli MD Primary Care Provider [phone] Encounter Details Date Type Department Care Team (Late st Contact Info) Description 08/19/2024 MyChart Message Enc [facility] Medical Group Multispecialty Care - [address], [address] [place] [phone] Carmina De Los Santos MD [address] [place] [phone] EEG Social History Tobacco Use Types Packs/Day Years Used Date Smoking Tobacco: Former Cigarettes Smokeless Tobacco: Never Alcohol Use Standard Drinks/Week Comments Not Currently 0 (1 standard drink = 0.6 oz pur e alcohol) Comments No Sex and Gender Information Value Date Recorded Sex Assigned at Female 06/19/2023 3:07 PM CDT Legal Sex Female 6:23 PM CDT Gender Identity Female 06/19/2023 3:07 PM CDT Sexual Orientation Straight 06/19/2023 3: 07 PM CDT documented as of this encounter Functional Status * RETIRED Are you deaf or do you have serious difficulty hearing Answer Date of Assessment Author Status No 10/15/2021 2:42 PM CDT Activ e * RETIRED Are you blind or do you have serious difficulty seeing, even when wearing glasses? Answer Date of Assessment Author Status No 10/15/2021 2:42 PM CDT Activ e * Do you have serious difficulty walking or climbing stairs? Answer Date of Assessment Author Status No 10/15/2021 2:42 PM CDT Rupinder Marin RN Active * Do you have difficulty dressing or bathing? Answer Date of Assessment Author Status No 10/15/2021 2:42 PM CDT Rupinder Marin RN Active * Because of a physical, mental, or emotional condition, do you have difficulty doing errands alone such as visiting a doctor's office or shopping? Answer Date of Assessment Author Status No 10/15/2021 2:42 PM FLORENT[place] Rupinder Marin RN Active documented as of this encounter Mental Status * Because of a physical, mental, or emotional condition, do you have serious difficulty concentrating, remembering, or making decisions? Answer Entry Date Author Status No 10/15/2021 2:42 PM FLORENITNT Rupinder Marin RN Active documented in this encounter Plan of Treatment Upcoming Encounters Date Type Department Care Team (Late st Contact Info) Description 02/03/2025 3:00 PM SERVICES ENGINEER Office Visit [facility] Medical Group General Surgery [address], [facility] [address] [place] [address] Melisa Humphries MD [address] [place] [address] [address] documented as of this encounter Goals Goal Patient Goal Type Associated Problems Recent Progress Patient-Stated? Author Health - patient able to perform ADLs independently General No Donya Nicolas RN documented as of this encounter Visit Diagnoses Not on filedocumented in this encounter Care Teams Wall Steamer Relationship Specialty Start Date End Date Koko Eli MD [address] [address] PCP - General FAMILY PRACTICE 09/22/19 documented as of this encounter
--- OUTSIDE RECORDS SUMMARY | 2025-01-28 15:45 | XMS_ITS | Clinical Summary ---
Author Organization [address] Address [address] [place] [phone] Care Team Providers Care Registered Radiation Therapist Name Role Phone Marleni Santos NP Primary Care Provider [phone] Allergies Active Allergy Reactions Criticality Noted Date [...] Tobacco: Never Tobacco Cessation:Counseling Given: Not Answered [facility] Utilities Answer Date Recorded In the past [...] week 07/09/2024 How often do you attend moravian or synagogue serv ices? Never 07/09/2024 Do you belong to any clubs o r organizations such as moravian groups, unions, fraternal or athletic groups, or [...] Recorded Patient Health Questionnaire-2 Score 1 07/09/2024 [facility] - Occupational Stress [...] in a long-term (including now)? No 05/08/2023 Personal Safety Answer Date Recorded Have you ever been in or are you currently in a harmful physical or emotional relationship or is someone making you feel afraid or unsafe? Denies 08/13/2024 Comments Unknown Sex and Gender Information Value Date Recorded Sex Assigned at Not on file Legal Sex Female 12:30 AM AIRPORT RAMP ATTENDANT Gender Identity Female 02/15/2023 7:16 PM AIRPORT RAMP ATTENDANT Sexual Orientation Straight 02/15/2023 7: 16 PM AIRPORT RAMP ATTENDANT Last Filed Vital Signs Vital Sign Reading [...] - GENERAL ORD ERABLES Final Result [facility] [address] [facility] Department [place] [address] from Last 3 Months or Most Recently Relevant to Health Maintenance Insurance PENDING SALE TO [facility] [place] Care Teams Registered Radiation Therapist Relationship Specialty Start Date End Date Marleni Santos NP PCP - General Nurse Practitioner 12/08/20
--- OUTSIDE RECORDS SUMMARY | 2025-01-28 15:45 | XMS_ITS | Encounter Summary ---
Author Organization [facility] Address [address] [place] [address] Care Team Providers Care Manuscript Editor Name Role Phone Koko Eli MD Primary Care Provider [phone] Encounter Details Date Type Department Care Team (Late st Contact Info) Description 11/12/2024 MyCJIT Solairet Message Enc [facility] Medical Group Multispecialty Care - [address], [address] [place] [phone] Carmina De Los Santos MD [address] [place] [phone] Diagnosis Social History Tobacco Use Types Packs/Day Years [...] 2:42 PM [place] Rupinder Marin RN Active * Do you have difficulty dressing or bathing? Answer Date of Assessment Author Status No 10/15/2021 2:42 PM Rupinder Gerard RN Active * Because of a physical, mental, or emotional condition, do you have difficulty doing errands alone such as visiting a doctor's office or shopping? Answer Date of Assessment Author Status No 10/15/2021 2:42 PM Rupinder Gerard RN Active documented as of this encounter Mental Status * Because of a physical, mental, or emotional condition, do you have serious difficulty concentrating, remembering, or making decisions? Answer Entry Date Author Status No 10/15/2021 2:42 PM Rupinder Gerard RN Active documented in this encounter Plan of Treatment Upcoming Encounters Date Type Department Care Team (Late st Contact Info) Description 02/03/2025 3:00 PM PARKS RECREATION DIRECTOR Office Visit [facility] Medical Group General Surgery [address], [address] [address] Melisa Humphries MD [address] [place] [address] [address] documented as of this encounter Goals Goal Patient Goal Type Associated Problems Recent Progress Patient-Stated? Author Health - patient able to perform ADLs independently General No Donya Nicolas RN documented as of this encounter Visit Diagnoses Not on filedocumented in this encounter Care Teams Manuscript Editor Relationship Specialty Start Date End Date Koko Eli MD [address] [address] PCP - General FAMILY PRACTICE 09/22/19 documented as of this encounter
[2025-01-28] MEDS: METOCLOPRAMIDE HCL INJ 10 MG/2 ML VIAL IV PUSH (15:46)
[2025-01-28 15:48] LABS: Alanine Aminotransferase 91 U/L (6-35); Albumin Level 4.4 g/dL (3.5-5.1); Alkaline Phosphatase 51 U/L (38-126); Anion Gap 6 mmol/L (4-12); Aspartate Amino Transferase 62 U/L (14-36); Bilirubin,Total 0.4 mg/dL (0.2-1.3); Blood Urea Nitrogen 15 mg/dL (7-17); Calcium 9.2 mg/dL (8.4-10.2); Carbon Dioxide 28 mmol/L (22-30); Chloride 103 mmol/L (98-107); Estimated CRCL calculation 81 ml/min; Estimated Glomerular Filt Rate > 60; Glucose 117 mg/dL (65-110); Lipase 423 U/L (23-300); Potassium 4.2 mmol/L (3.4-5.0); Sodium 137 mmol/L (137-145); Total Protein 7.2 g/dL (6.3-8.2)
[2025-01-28] MEDS: PANTOPRAZOLE SODIUM IV 40 MG VIAL IV PUSH (15:48)
[2025-01-28] MEDS: BELLADONNA ALK/PHENOB ELIX 10 ML, MAG HYDROX/ALUMINUM HYD/SIMETH 30 ML, LIDOCAINE 2% VI... PO (15:54)
[2025-01-28 15:56] LABS: Troponin I < 0.012 ng/mL (0.000-0.034)
[2025-01-28 16:12] VITALS: BP 126/75; PULSE 80; RESP 19; O2SAT 96
== END 2025-01-28 17:38 | disposition home or self-care (01) ==
PROVIDERS: Emergency Provider Emergency Medicine; PCP Family Medicine
DX: K59.00 Constipation, unspecified (principal); R10.13 Epigastric pain; M06.00 Rheumatoid arthritis without rheumatoid factor, unspecified site; K22.70 Barrett's esophagus without dysplasia; F41.9 Anxiety disorder, unspecified; F31.9 Bipolar disorder, unspecified; Z87.11 Personal history of peptic ulcer disease; Z87.891 Personal history of nicotine dependence; Z90.49 Acquired absence of other specified parts of digestive tract
CPT/HCPCS: 36415; 71046; 74177; 80053; 83690; 84484; 85025; 85610; 85730; 93005; 96374; 96375; 99284; A9270; J2470; J2765; Q9967